=== PATIENT | female | born 1950 ===

== ENCOUNTER 2020-09-26 10:44 | Outpatient (REF) | payer MEDICARE, SELFPAY ==
[2020-09-26 14:37] LABS: Cholesterol 231 mg/dL; HDL Cholesterol 78 mg/dL; LDL Cholesterol Calculated 140 mg/dl; Triglycerides 67 mg/dL
== END 2020-09-26 10:45 | disposition home or self-care (01) ==
LOC: HO.HMGCLDS 10:44
PROVIDERS: PCP Nurse Practitioner Family; Visit Provider Nurse Practitioner Family
DX: E78.5 Hyperlipidemia, unspecified (principal)
CPT/HCPCS: 80061

== ENCOUNTER 2021-07-28 10:23 | Outpatient (REF) | payer MEDICARE, SELFPAY ==
[2021-07-28 11:22] LABS: Appearance Urine CLEAR; Color Urine YELLOW; Glucose Urine UA NEG (NEG); Leukocyte Esterase Urine TRACE (NEG); Nitrite Urine POS (NEG); Specific Gravity - Urine 1.025 (1.005-1.025); UACC Culture Trigger YES; Urine Blood 1+ (NEG); Urine Ketones NEG (NEG); Urine Protein NEG (NEG-TRACE)
[2021-07-28 11:34] LABS: Bacteria Urine 3+ /LPF; Mucus Urine 2+ /LPF; Squamous Epithelial Cell Urine 1+ /LPF
[2021-07-28 11:48] LABS: Alanine Aminotransferase 24 U/L (0-31); Albumin Level 4.5 g/dL (3.5-5.0); Alkaline Phosphatase 70 U/L (39-117); Anion Gap 13 (12-20); Aspartate Amino Transferase 26 U/L (5-31); Bilirubin Total 0.9 mg/dL (0.0-1.0); Blood Urea Nitrogen 19 mg/dL (9-16); Calcium 9.5 mg/dL (8.4-10.2); Carbon Dioxide 27 mmol/L (22-29); Chloride 105 mmol/L (96-108); Cholesterol 281 mg/dL; Estimated Glomerular Filt Rate > 60; Glucose Fasting 104 mg/dL (60-99); HDL Cholesterol 74 mg/dL; LDL Cholesterol Calculated 188 mg/dl; Potassium 4.5 mmol/L (3.3-5.1); Sodium 140 mmol/L (135-145); Total Protein 7.2 g/dL (6.5-8.0); Triglycerides 96 mg/dL
[2021-07-28 12:12] LABS: TSH reflex Free T4 0.76 uIU/mL (0.32-4.0)
== END 2021-07-28 10:24 | disposition home or self-care (01) ==
LOC: HO.HMGCLDS 10:23
PROVIDERS: PCP Nurse Practitioner Family; Visit Provider Nurse Practitioner Family
DX: E78.5 Hyperlipidemia, unspecified (principal); Z78.0 Asymptomatic menopausal state
CPT/HCPCS: 36415; 80053; 80061; 81001; 84443; 87086; 87088; 87186

== ENCOUNTER 2021-08-22 10:44 | Outpatient (REF) | payer MEDICARE, SELFPAY ==
--- NOTE | ~2021-08-22 | MM_ITS ---
EXAMINATION: BONE DENSITOMETRY CLINICAL INDICATION: Asymptomatic menopausal state. COMPARISON: Previous BD dated 11/11/2018 and baseline BD dated 03/04/2018. TECHNIQUE: Using a Chalkable DXA System (software version: 13.1) manufactured by [employer] dual-energy x-ray absorptiometry was performed of the lumbar spine and left hip. The images are of good technical quality. Summary results are attached. FINDINGS: AP SPINE L1-L3 (excluding L4): The data of L1-L4 has been changed to exclude the L4 vertebral body, because degenerative sclerosis at this level may cause overestimation of lumbar spine density. Current: BMD 0.642 g/cm2, Z-score -2.3, T-score -4.4, osteoporosis, 11.3% decrease from previous, 4.7% decrease from baseline (<5% change is not significant). Prior: BMD 0.724 g/cm2. Baseline: BMD 0.674 g/cm2. LEFT FEMUR, NECK: Current: BMD 0.594 g/cm2, Z-score -1.2, T-score -3.2, osteoporosis. Prior: BMD 0.655 g/cm2. Baseline: BMD 0.604 g/cm2. LEFT FEMUR, TOTAL: Current: BMD 0.554 g/cm2, Z-score -1.8, T-score -3.6, osteoporosis, 13.3% decrease from previous, 14.4% decrease from baseline (<5% change is not significant). Prior: BMD 0.639 g/cm2. Baseline: BMD 0.647 g/cm2. IDENTIFIED RISK FACTORS: Osteoporosis, glucocorticoids (chronic), menopause. HISTORY OF FRACTURE: None listed. MEDICATIONS: Calcium supplements or multivitamin, vitamin D. MM/XR DEXA axial skeleton IMPRESSION: 1. DIAGNOSIS: Osteoporosis based on the lowest T-score value of -4.4 in the lumbar spine applying World Health Organization criteria. 2. 10-YEAR FRACTURE RISK PREDICTION, FRAX: Major osteoporotic fracture (clinical spine, forearm, hip or shoulder) 28.7%. Hip fracture 13.1%. 3. Treatment Recommendations: NOF guidelines recommend consideration for treatment in postmenopausal women and men age 50 and older presenting with the following: -A hip or vertebral (clinical or morphometric) fracture. -T-score less than or equal to -2.5 at the femoral neck or spine after appropriate evaluation to exclude secondary causes. -Low bone mass at the hip or spine and a 10-year fracture probability by FRAX of greater than or equal to 3% for hip fracture or greater than or equal to 20% for major osteoporotic fracture based on the [place] adapted WHO algorithm. 4. Other Recommendations: All treatment decisions require clinical judgment and consideration of individual patient factors, including patient preferences, comorbidities, previous drug use, risk factors not captured in the FRAX model (e.g. frailty, falls, vitamin D deficiency, increased bone turnover, interval significant decline in bone density) and possible under or overestimation of fracture risk by FRAX. Additional medical evaluation for secondary cause of low bone mineral density may be appropriate. FUTURE SCAN RECOMMENDATION: People with diagnosed cases of osteoporosis or at high risk for fracture should have regular bone mineral density tests. For patients eligible for Medicare, routine testing is allowed once every 2 years. The testing frequency can be increased to one year for patients who have rapidly progressing disease, those who are receiving or discontinuing medical therapy to restore bone mass, or have additional risk factors.
--- NOTE | ~2021-08-22 | MM_ITS ---
EXAMINATION: MM SCREENING DIGITAL BREAST TOMOSYNTHESIS, BILATERAL CLINICAL INFORMATION: Screening. Asymptomatic. The lifetime risk of breast cancer based on the Tyrer-Cuzick Model is 3%. COMPARISON: Mammography: 07/02/2020, 06/26/2020, 03/03/2019, outside mammography 01/24/2015 ([place], [place]). TECHNIQUE: Digital breast tomosynthesis is performed in both the craniocaudal and mediolateral oblique views along with computer-aided detection (CAD). Synthesized 2D images are generated from the tomosynthesis. FINDINGS: There are scattered areas of fibroglandular density (ACR BI-RADS breast composition Category b). There are no significant masses, abnormal calcifications, or other abnormalities. There is no developing density. No significant changes from prior studies. MM/MM tomosynthesis screening BI IMPRESSION: No mammographic evidence of malignancy. ASSESSMENT: BI-RADS 1: Negative RECOMMENDATION: Routine annual mammography screening. This patient's information was entered into a reminder system with a target due date for their next mammogram.
== END 2021-08-22 10:45 | disposition home or self-care (01) ==
LOC: HO.MAMMO 10:44
PROVIDERS: Visit Provider Nurse Practitioner Family
DX: Z12.31 Encounter for screening mammogram for malignant neoplasm of breast (principal); Z13.820 Encounter for screening for osteoporosis; M81.0 Age-related osteoporosis without current pathological fracture; Z78.0 Asymptomatic menopausal state; Z79.899 Other long term (current) drug therapy
CPT/HCPCS: 77063; 77067; 77080

== ENCOUNTER 2021-12-29 08:01 | Outpatient (REF) | payer MEDICARE, SELFPAY ==
[2021-12-29 11:27] LABS: MANUAL DIFF FLAG NO
[2021-12-29 11:35] LABS: Basophils Absolute Auto 0.1 X10*3/uL (0.0-0.2); Basophils Percent Auto 0.9 % (0-2); Eosinophils Absolute Auto 0.4 X10*3/uL (0.0-0.4); Eosinophils Percent Auto 4.7 % (0-4); Hematocrit 43.6 % (37.0-47.0); Hemoglobin 14.1 g/dl (12.0-16.0); Imm Gran Abs Auto 0.02 X10*3/uL (0.00-0.03); Imm Gran Pct Auto 0.2 % (0.0-0.4); Lymphocytes Absolute Auto 2.4 X10*3/uL (1.2-4.9); Lymphocytes Percent Auto 29.2 % (20-40); Mean Corpuscular HGB Conc 32.3 g/dl (31.0-35.0); Mean Corpuscular Hemoglobin 30.8 pg (27.0-33.0); Mean Corpuscular Volume 95.2 fL (80.0-98.0); Mean Platelet Volume 9.8 fL (9.4-12.3); Monocytes Absolute Auto 0.7 X10*3/uL (0.1-1.2); Monocytes Percent Auto 8.2 % (2-11); Neutrophils Absolute Auto 4.7 x10*3/uL (2.0-8.3); Neutrophils Percent Auto 56.8 % (45-73); Platelet Count 298 X10*3/uL (160-400); Red Blood Count 4.58 X10*6/uL (4.20-5.50); Red Cell Distribution Width 12.3 % (11.0-16.0); White Blood Count 8.2 X10*3/uL (4.8-10.8)
[2021-12-29 11:55] LABS: Alanine Aminotransferase 19 U/L (0-31); Alkaline Phosphatase 63 U/L (39-117); Anion Gap 10 (12-20); Aspartate Amino Transferase 21 U/L (5-31); Bilirubin Total 0.5 mg/dL (0.0-1.0); Blood Urea Nitrogen 21 mg/dL (9-16); C Reactive Protein 1.25 mg/dL (< or = 0.50); Calcium 9.6 mg/dL (8.4-10.2); Carbon Dioxide 29 mmol/L (22-29); Chloride 107 mmol/L (96-108); Cholesterol 211 mg/dL; Estimated Glomerular Filt Rate > 60; Glucose Fasting 105 mg/dL (60-99); HDL Cholesterol 66 mg/dL; LDL Cholesterol Calculated 130 mg/dl; Potassium 4.3 mmol/L (3.3-5.1); Sodium 142 mmol/L (135-145); Total Protein 6.5 g/dL (6.5-8.0); Triglycerides 79 mg/dL
[2021-12-29 12:02] LABS: HBS Num1 0.08 mIU/mL (0-7.99); HBc Num1 0.05 S/CO (0.00-0.79); Hepatitis B Core Antibody Nonreactive (Nonreactive); ~HepC Num1 0.08 S/CO (0.00-0.79); ~Hepatitis B Surface Antibody NONREACTIVE (Nonreactive); ~Hepatitis C Antibody Nonreactive (Nonreactive)
[2021-12-29 12:05] LABS: HBsAGNum1 0.26 S/CO (0.00-0.99); Hepatitis B Surface Antigen Negative (Negative)
[2021-12-29 12:16] LABS: Erythrocyte Sedimentation Rate 11 MM/HR (0-20); TSH reflex Free T4 1.02 uIU/mL (0.32-4.0)
[2021-12-29 12:20] LABS: Appearance Urine CLOUDY; Color Urine YELLOW; Glucose Urine UA NEG (NEG); Leukocyte Esterase Urine TRACE (NEG); Nitrite Urine NEG (NEG); Specific Gravity - Urine 1.025 (1.005-1.025); UACC Culture Trigger YES; Urine Blood TRACE (NEG); Urine Ketones NEG (NEG); Urine Protein NEG (NEG-TRACE)
[2021-12-29 12:51] LABS: Amorphous Sediment Urine 3+ /LPF; Calcium Oxalate Crystals Urine 1+ /LPF; RBC Urine 0 /HPF (0); Squamous Epithelial Cell Urine TRACE /LPF; WBC Urine 0-2 /HPF (0-4)
[2021-12-29 13:03] LABS: HIV AB/AG Nonreactive (Nonreactive); HIV Num 1 0.06 S/CO (0.00-0.99)
[2021-12-31 08:38] LABS: Hepatitis A Antibody IgM 0.19 Index (0-0.79); ~Hepatitis A Antibody IgM Nonreactive (Nonreactive)
== END 2021-12-29 08:02 | disposition home or self-care (01) ==
LOC: HO.HMGCLDS 08:01
PROVIDERS: PCP Nurse Practitioner Family; Visit Provider Nurse Practitioner Family
DX: R63.4 Abnormal weight loss (principal); E78.5 Hyperlipidemia, unspecified
CPT/HCPCS: 36415; 80053; 80061; 81001; 81003; 84443; 85025; 85652; 86140; 86704; 86706; 86709; 86803; 87086; 87340; 87389

== ENCOUNTER 2022-01-19 09:21 | Outpatient (REF) | payer MEDICARE, SELFPAY ==
[2022-01-19 11:32] LABS: Urine Cytology See Pathology rpt
[2022-01-19 11:39] LABS: Appearance Urine CLEAR; Color Urine YELLOW; Glucose Urine UA NEG (NEG); Leukocyte Esterase Urine NEG (NEG); Nitrite Urine NEG (NEG); Urine Blood NEG (NEG); Urine Ketones NEG (NEG); Urine Protein NEG (NEG-TRACE)
[2022-01-19 11:55] LABS: RBC Urine 0-2 /HPF (0); Squamous Epithelial Cell Urine TRACE /LPF; WBC Urine 0 /HPF (0-4)
[2022-01-25 16:12] LABS: Estrogen 108.7 pg/mL
== END 2022-01-19 09:22 | disposition home or self-care (01) ==
LOC: HO.HMGCLDS 09:21
PROVIDERS: PCP Nurse Practitioner Family; Visit Provider Nurse Practitioner Family
DX: R31.29 Other microscopic hematuria (principal); Z78.0 Asymptomatic menopausal state
CPT/HCPCS: 36415; 81001; 82672; 87086; 88112

== ENCOUNTER 2022-03-17 13:15 | Outpatient (REF) | payer MEDICARE, SELFPAY ==
[2022-03-17 16:57] LABS: Urine Cytology See Pathology rpt
== END 2022-03-17 13:16 | disposition home or self-care (01) ==
LOC: HO.LAB 13:15
PROVIDERS: PCP Nurse Practitioner Family
DX: R31.29 Other microscopic hematuria (principal)
CPT/HCPCS: 88112; 99202

== ENCOUNTER → 2022-04-02 14:33 | Outpatient (BNVA) | payer MEDICARE, SELFPAY | PROVIDERS: PCP Nurse Practitioner Family; Visit Provider Internal Medicine Endocrinology, Diabetes & Metabolism | DX: M81.0 Age-related osteoporosis without current pathological fracture (principal); Z79.899 Other long term (current) drug therapy | CPT/HCPCS: 99212 ==

== ENCOUNTER → 2022-05-04 13:18 | Outpatient (BNVA) | payer MEDICARE, SELFPAY | PROVIDERS: PCP Nurse Practitioner Family | DX: R31.29 Other microscopic hematuria (principal) | CPT/HCPCS: 99212 ==

== ENCOUNTER 2022-06-25 14:17 | Outpatient (REF) | payer MEDICARE, SELFPAY ==
--- NOTE | ~2022-06-25 | US_ITS ---
EXAMINATION: US RETROPERITONEAL LIMITED (RENAL ONLY) CLINICAL INFORMATION: Other microscopic hematuria. COMPARISON: None TECHNIQUE: Real-time imaging of the kidneys. FINDINGS: RIGHT KIDNEY: 10.7 x 5.1 x 4.9 cm (SAG x AP x TRV). The kidney is normal in size, contour, and echogenicity. Renal cortical thickness is normal. No renal calculi or hydronephrosis. Within the upper pole there is a 1.9 x 1.7 x 0.7 cm cyst containing calcification. Within the midpole there is a 1.9 x 2.1 x 1.9 cm simple appearing cyst. Within the lower pole there is a 0.7 x 0.7 x 0.7 cm simple appearing cyst. LEFT KIDNEY: 9.9 x 3.7 x 4.9 cm (SAG x AP x TRV). The kidney is normal in size, contour, and echogenicity. Renal cortical thickness is normal. No renal calculi or hydronephrosis. Within the midpole there is a 1.5 x 0.9 x 1.1 cm cyst containing punctate calcifications without internal vascularity or septation. US/US renal BI IMPRESSION: Bilateral renal cysts, some of which have some rounded calcifications about the wall with the appearance of Bosniak 2 cysts.
== END 2022-06-25 14:18 | disposition home or self-care (01) ==
LOC: HO.US 14:17
DX: R31.29 Other microscopic hematuria (principal)
CPT/HCPCS: 76775

== ENCOUNTER 2022-09-04 13:36 | Outpatient (REF) | payer MEDICARE, SELFPAY ==
--- NOTE | ~2022-09-04 | MM_ITS ---
EXAMINATION: MM SCREENING DIGITAL BREAST TOMOSYNTHESIS, BILATERAL CLINICAL INFORMATION: Screening. Asymptomatic. COMPARISON: Mammography: 08/22/2021, 07/02/2020, 06/26/2020, 03/03/2019 TECHNIQUE: Digital breast tomosynthesis is performed in both the craniocaudal and mediolateral oblique views along with computer-aided detection (CAD). Synthesized 2D images are generated from the tomosynthesis. FINDINGS: There are scattered areas of fibroglandular density (ACR BI-RADS breast composition Category b). There are no significant masses, abnormal calcifications, or other abnormalities. Parenchymal pattern is similar to prior studies. There is no developing density or architectural abnormality. The axilla and skin contours are unremarkable. No significant changes. MM/MM tomosynthesis screening BI IMPRESSION: No mammographic evidence of malignancy. ASSESSMENT: BI-RADS 1: Negative RECOMMENDATION: Routine annual mammography screening. This patient's information was entered into a reminder system with a target due date for their next mammogram.
== END 2022-09-04 13:37 | disposition home or self-care (01) ==
LOC: HO.MAMMO 13:36
PROVIDERS: PCP Nurse Practitioner Family; Visit Provider Nurse Practitioner Family
DX: Z12.31 Encounter for screening mammogram for malignant neoplasm of breast (principal)
CPT/HCPCS: 77063; 77067

== ENCOUNTER → 2022-11-26 14:51 | Outpatient (BNVA) | payer MEDICARE, SELFPAY | PROVIDERS: PCP Nurse Practitioner Family; Visit Provider Internal Medicine Endocrinology, Diabetes & Metabolism | DX: M81.0 Age-related osteoporosis without current pathological fracture (principal); Z78.0 Asymptomatic menopausal state | CPT/HCPCS: 99212 ==

== ENCOUNTER → 2023-01-08 10:50 | Outpatient (BNVA) | payer MEDICARE, SELFPAY | PROVIDERS: PCP Nurse Practitioner Family; Visit Provider Internal Medicine Endocrinology, Diabetes & Metabolism | DX: M81.0 Age-related osteoporosis without current pathological fracture (principal); Z79.899 Other long term (current) drug therapy | CPT/HCPCS: 96372; J3111 ==

== ENCOUNTER 2023-03-20 09:14 | Outpatient (REF) | payer MEDICARE, SELFPAY ==
[2023-03-20 10:37] LABS: MANUAL DIFF FLAG NO
[2023-03-20 10:40] LABS: Basophils Absolute Auto 0.1 X10*3/uL (0.0-0.2); Basophils Percent Auto 1.1 % (0-2); Eosinophils Absolute Auto 0.8 X10*3/uL (0.0-0.4); Hematocrit 41.6 % (37.0-47.0); Hemoglobin 13.5 g/dl (12.0-16.0); Imm Gran Abs Auto 0.02 X10*3/uL (0.00-0.03); Imm Gran Pct Auto 0.3 % (0.0-0.4); Lymphocytes Absolute Auto 2.2 X10*3/uL (1.2-4.9); Lymphocytes Percent Auto 33.9 % (20-40); Mean Corpuscular HGB Conc 32.5 g/dl (31.0-35.0); Mean Corpuscular Hemoglobin 31.1 pg (27.0-33.0); Mean Corpuscular Volume 95.9 fL (80.0-98.0); Mean Platelet Volume 9.6 fL (9.4-12.3); Monocytes Absolute Auto 0.4 X10*3/uL (0.1-1.2); Monocytes Percent Auto 6.7 % (2-11); Platelet Count 326 X10*3/uL (160-400); Red Blood Count 4.34 X10*6/uL (4.20-5.50); Red Cell Distribution Width 13.5 % (11.0-16.0); White Blood Count 6.5 X10*3/uL (4.8-10.8)
[2023-03-20 11:03] LABS: Urine Cytology See Pathology rpt
[2023-03-20 11:14] LABS: Appearance Urine Clear; Color Urine Yellow; Glucose Urine UA Negative (Negative); Leukocyte Esterase Urine Trace (Negative); Nitrite Urine Negative (Negative); PH 6.5 (5.0-9.0); Specific Gravity - Urine 1.025 (1.005-1.025); UMIC TRIGGER UACC YES; Urine Blood Negative (Negative); Urine Ketones Negative (Negative); Urine Protein Negative (Neg-Trace)
[2023-03-20 11:24] LABS: Alanine Aminotransferase 21 U/L (0-31); Albumin Level 3.9 g/dL (3.5-5.0); Alkaline Phosphatase 56 U/L (39-117); Anion Gap 11 (12-20); Aspartate Amino Transferase 22 U/L (5-31); Bilirubin Total 0.5 mg/dL (0.0-1.0); Blood Urea Nitrogen 18 mg/dL (9-16); Calcium 9.4 mg/dL (8.4-10.2); Carbon Dioxide 28 mmol/L (22-29); Chloride 106 mmol/L (96-108); Cholesterol 231 mg/dL; Estimated Glomerular Filt Rate > 60; Glucose Fasting 93 mg/dL (60-99); HDL Cholesterol 68 mg/dL; LDL Cholesterol Calculated 142 mg/dl; Potassium 4.1 mmol/L (3.3-5.1); Sodium 141 mmol/L (135-145); Total Protein 6.3 g/dL (6.5-8.0); Triglycerides 109 mg/dL
[2023-03-20 11:29] LABS: Bacteria Urine None Seen (None Seen); Granular Casts Urine Present; Hyaline Casts Urine 0-2 /LPF (0-2); RBC Urine 0-2 /HPF (0-2); Squamous Epithelial Cell Urine 0-2 /HPF (0-2); WBC Urine 0-5 /HPF (0-5)
[2023-03-20 11:42] LABS: TSH reflex Free T4 0.98 uIU/mL (0.32-4.0); Vitamin D 25-OH Total 43.8 ng/mL (>30)
== END 2023-03-20 09:15 | disposition home or self-care (01) ==
LOC: HO.HMGCLDS 09:14
PROVIDERS: PCP Nurse Practitioner Family; Visit Provider Nurse Practitioner Family
DX: E78.5 Hyperlipidemia, unspecified (principal); R31.29 Other microscopic hematuria; M81.0 Age-related osteoporosis without current pathological fracture
CPT/HCPCS: 36415; 80053; 80061; 81001; 82306; 84443; 85025; 88112

== ENCOUNTER 2023-03-25 14:25 | Outpatient (REF) | payer MEDICARE, SELFPAY ==
--- NOTE | ~2023-03-25 | XR_ITS ---
EXAMINATION: XR CHEST CLINICAL INFORMATION: Cough COMPARISON: None available. TECHNIQUE: 2 views of the chest were obtained. FINDINGS: The lungs are hyperinflated with linear stranding in both lung bases likely chronic scarring or atelectasis. No acute pneumonic consolidation. There is no pleural effusion. No gross bony abnormality seen. XR/XR chest 2V IMPRESSION: Hyperinflated lungs with bibasilar atelectasis or scarring.
[2023-03-29 22:03] LABS: Immunoglobulin E 15 kU/L (<OR=114)
== END 2023-03-25 14:26 | disposition home or self-care (01) ==
LOC: HO.LAB 14:25
PROVIDERS: PCP Nurse Practitioner Family; Visit Provider Internal Medicine
DX: J45.909 Unspecified asthma, uncomplicated (principal); R05.9 Cough, unspecified; D72.10 Eosinophilia, unspecified
CPT/HCPCS: 36415; 71046; 82785; 99202

== ENCOUNTER 2023-04-08 10:56 | Outpatient (REF) | payer MEDICARE, SELFPAY ==
--- NOTE | 2023-04-08 12:46 | PFT_ITS ---
Forced vital capacity 58%. FEV1 44%. FEV1/FVC ratio is 57. [id number] is 24% and MVV 43%. Post bronchodilator therapy, there is very minimal improvement in FVC and [id number]. Total lung capacity 74%. Residual volume 91%. Diffusion capacity 54%. CONCLUSION: 1. Severe obstructive airway disorder. 2. Very minimal improvement after bronchodilator therapy is noted. 3. The patient may also have mild restrictive pulmonary disorder. 4. Clinical correlation is recommended. MD JASON Reardon/MODL / [id number]
== END 2023-04-08 10:57 | disposition home or self-care (01) ==
LOC: HO.RESP 10:56
PROVIDERS: PCP Nurse Practitioner Family; Visit Provider Internal Medicine
DX: R05.9 Cough, unspecified (principal); J45.909 Unspecified asthma, uncomplicated
CPT/HCPCS: 94060; 94727; 94729

== ENCOUNTER 2023-05-24 13:06 | Outpatient (AMB) | payer MEDICARE, SELFPAY ==
[2023-05-24 13:16] VITALS: BP 102/64; PULSE 92; O2SAT 93; BMI 17.6
--- NOTE | 2023-05-24 13:16 | MHC.OFFVIS ---
Intake Vital Signs 05/24/23 13:16 Height 5 ft 4.5 in Weight 104 lb BMI 17.6 BP 102/64 Blood Pressure Location Lt brachial Position Standing Pulse 92 Pulse Source Pulse Oximeter Pulse Oximetry (%) 93 Oxygen Delivery Method Room Air Intake Visit Reasons: Asthma Intake Note: pt is here for pft follow up and states she states her breathing is good, but it is not fully under control, and affecting her life, she cannot exercise which is affecting her daily living activities, still coughing. PT NEEDS A REFILL ON ALBUTEROL AND ALSO WOULD YOU CONSIDER A TAPER DOSE OF PREDNISONE TO HAVE AT HOME FOR FLARE UP. Casserole Preparer Required: No Allergies amoxicillin [Augmentin] Allergy (Unknown, Verified 05/24/23 13:54) Anaphylaxis, diarrhea clavulanic acid [Augmentin] Allergy (Unknown, Verified 05/24/23 13:54) Anaphylaxis Self Adherent Wrap Adverse Reaction (Unknown, Uncoded 05/24/23 13:54) Hives to area Medication List - Last Reconciled 05/24/23 by Virgil Vital MD albuterol sulfate 90 mcg/actuation (ProAir HFA) 2 puffs inhalation Q6H PRN 30 days ascorbate calcium (vitamin C) 500 mg PO DAILY azelaic acid 15% topical BID cholecalciferol (vitamin D3) 50 mcg PO DAILY fluticasone propion-salmeterol 500-50 mcg/dose (Advair Diskus) 1 inh inhalation BID 90 days ipratropium-albuterol 0.5 mg-3 mg(2.5 mg base)/3 mL 3 mL inhalation Q12H PRN 30 days levocetirizine 5 mg PO QPM PRN bnjivkuophoi-Jt-figi-minerals tabs PO pravastatin 20 mg PO BEDTIME 90 days pyridoxine (vitamin B6) 100 mg PO DAILY teriparatide (Forteo) 20 mcg (0.08 mL) subcut DAILY trazodone 50 mg PO BEDTIME PRN 30 days vitamin K2 100 mcg PO DAILY Do you need a note to return to daycare/school/sports/work: No HPI Asthma HPI Details This 72 years old very pleasant female, past history of smoking for 20 years but quit more than 20 years ago, Who has moved from [facility] to [place] ,. Comes for follow-up She claims that she is definitely better but her breathing is not fully controlled yet. She gets short of breath easily on walking on the level. Ground or climbing stairs She does have feeling of congestion and some cough especially in the morning hours. She is also concerned about the scott of meds ( high co-payment for Advair ) She uses lot of [place] herbal products to help bring up more mucus and also to improve her strength. [facility] Medical History (Updated 05/24/23 @ 14:06 by Virgil Vital MD) COPD (chronic obstructive pulmonary disease) Cough Eosinophilia Microhematuria Surgical History History of surgery Family History Mother No known health problems Father No known health problems Social History Household Members: None Housing: House Patient Tobacco Use Status: Former Tobacco user Years Smoked: 20 years e-Cigarette/Vaping Use: Never Used Current occupational status: retired Cognitive needs: No Hearing needs: No Vision needs: No Review of Systems Const All systems reviewed & are unremarkable except as noted in HPI and below Eyes Reports no additional complaints ENT Reports nasal congestion (Mild intermittent) Card Denies irregular heart rhythm and Denies leg edema Resp Reports as per HPI GI Reports no additional complaints Reports no additional complaints Musc Reports no additional complaints Skin/Breast Reports system reviewed and no additional complaints, except as documented Neuro Reports no additional complaints Psych Reports no additional complaints Endo Reports no additional complaints Ayaan/Lymph Reports no additional complaints Physical Exam Vital Signs: Last Vital Signs Pulse 92 05/24/23 13:16 BP 102/64 05/24/23 13:16 Pulse Ox 93 05/24/23 13:16 Oxygen Delivery Method Room Air 05/24/23 13:16 BMI result Body Mass Index 17.6 Const General: healthy appearing, comfortable, no acute distress, alert and awake Orientation/consciousness: patient oriented x3 HEENT Head: Yes normal to inspection General nose exam: No nasal polyps present, No nasal discharge present and Other nasal findings present (Mild nasal congestion) Face and sinus: Yes sinuses nontender Mouth: oropharynx normal Throat: Yes posterior oropharynx normal Eyes General: appearance normal, both eyes and all related structures Neck Neck: Yes normal visual inspection, Yes no lymphadenopathy, Yes trachea midline and Yes no JVD Thyroid: Thyroid normal Chest Chest palpation & inspection: normal inspection of the chest, normal palpation of entire chest wall and no tenderness Resp Other: Percussion note hyper resonant . Breath sounds are slightly distant with prolonged expiratory phase No wheezes or crepitations are heard. But she does get cough on taking a deep breath. Cardio Palpation: normal PMI Rate: regular rate Rhythm: regular rhythm Heart sounds: Gallop heart sound present and Murmur heart sound present Peripheral pulses: Peripheral pulses 2+ throughout GI Palpation (GI): Soft to palpation, nontender, No hepatosplenomegaly present and no masses Auscultation: normal bowel sounds Back/Spine/Pelvis Thoracic/Lumbar Spine: thoracic and lumbar spine normal to inspection Skin General skin exam: no rashes or lesions noted Neuro General: patient oriented x3 and no focal motor deficits Cranial nerves: Yes CN's II-XII intact bilaterally Extrem General: Yes normal to inspection, Yes no clubbing, cyanosis or edema and Yes no calf tenderness Psych Speech and movement: Normal speech and movement present Results Reviewed Results Reviewed: IgE. And Eiosinophil count , are normal. Chest x-ray shows hyperinflated lung kim with minimal scarring in the basilar areas. Pulmonary function test: Severe obstructive airway disorder. No significant response to bronchodilators. Mild restrictive disorder. Assessment & Plan Assessment & Plan (1) COPD (chronic obstructive pulmonary disease): Comment: Patient has past history of smoking. Chest x-ray shows hyperinflated lung/pulmonary emphysema. PFT, C/W obstructive airway disorder, severe. . Explained the results to the patient TX : Continue using Advair 500-51 inhalation b.i.d.. Ipratropium-albuterol inhalation solution to be used in the nebulizer t.i.d.. Albuterol HFA 2 puffs Q 4-6 hours p.r.n.. No need of using oral prednisone at this time. Okay to continue the herbal meds she has , as long as she is not getting any significant side effects. Code(s): J44.9 - Chronic obstructive pulmonary disease, unspecified (2) Asthma: Comment: Chronic allergic bronchial asthma. Mostly presenting in the form of cough. Relatively controlled at this time. TX : Has under COPD. Code(s): J45.909 - Unspecified asthma, uncomplicated Coding Level of Care Code Est Pt Level 3 (65880) Diagnoses COPD (chronic obstructive pulmonary disease) J44.9 Asthma J45.909
== END 2023-05-24 13:42 | disposition home or self-care (01) ==
PROVIDERS: PCP Nurse Practitioner Family; Visit Provider Internal Medicine
DX: J45.909 Unspecified asthma, uncomplicated (principal)
CPT/HCPCS: 99213

== ENCOUNTER → 2023-05-24 13:06 | Outpatient (BNVA) | payer MEDICARE, SELFPAY | PROVIDERS: PCP Nurse Practitioner Family; Visit Provider Internal Medicine | DX: J45.909 Unspecified asthma, uncomplicated (principal); J44.9 Chronic obstructive pulmonary disease, unspecified | CPT/HCPCS: 99212 ==

== ENCOUNTER 2023-05-27 14:09 | Outpatient (AMB) | payer MEDICARE, SELFPAY ==
--- NOTE | 2023-05-27 14:10 | MHC.OFFVIS ---
Intake Vital Signs 05/27/23 14:12 Height 5 ft 4.5 in Weight 105 lb 13.15 oz BMI 17.9 BP 132/68 Blood Pressure Location Lt brachial Position Sitting Pulse 98 Intake Visit Reasons: f/u osteoporosis Intake Note: Patient present for Osteoporosis follow up visit. Contact Finger Assembler Required: No Allergies amoxicillin [Augmentin] Allergy (Unknown, Verified 05/27/23 14:20) Anaphylaxis, diarrhea clavulanic acid [Augmentin] Allergy (Unknown, Verified 05/27/23 14:20) Anaphylaxis Self Adherent Wrap Adverse Reaction (Unknown, Uncoded 05/24/23 13:54) Hives to area Medication List - Last Reviewed 05/27/23 by Yuliana Kay albuterol sulfate 90 mcg/actuation (ProAir HFA) 2 puffs inhalation Q6H PRN 30 days ascorbate calcium (vitamin C) 500 mg PO DAILY azelaic acid 15% topical BID cholecalciferol (vitamin D3) 50 mcg PO DAILY fluticasone propion-salmeterol 500-50 mcg/dose (Advair Diskus) 1 inh inhalation BID 90 days ipratropium-albuterol 0.5 mg-3 mg(2.5 mg base)/3 mL 3 mL inhalation Q12H PRN 30 days levocetirizine 5 mg PO QPM PRN cvkcgnmueyhm-Oq-moed-minerals tabs PO pravastatin 20 mg PO BEDTIME 90 days pyridoxine (vitamin B6) 100 mg PO DAILY teriparatide (Forteo) 20 mcg (0.08 mL) subcut DAILY trazodone 50 mg PO BEDTIME PRN 30 days vitamin K2 100 mcg PO DAILY HPI HPI Comments History of Present Illness Details This is a 72-year-old white female previously for osteoporosis. Patient was last seen on 08/19/2018. She has no prior history of fractures . never took a bisphosphonate . Secondary workup was performed which was negative. Not On Forteo 20 mcg QD EXAMINATION: BONE DENSITOMETRY CLINICAL INDICATION: Asymptomatic menopausal state. COMPARISON: Previous BD dated 11/11/2018 and baseline BD dated 03/04/2018. TECHNIQUE: Using a [employer]et DXA System (software version: 13.1) manufactured by [id number], dual-energy x-ray absorptiometry was performed of the lumbar spine and left hip. The images are of good technical quality. Summary results are attached. FINDINGS: AP SPINE L1-L3 (excluding L4): The data of L1-L4 has been changed to exclude the L4 vertebral body, because degenerative sclerosis at this level may cause overestimation of lumbar spine density. Current: BMD 0.642 g/cm2, Z-score -2.3, T-score -4.4, osteoporosis, 11.3% decrease from previous, 4.7% decrease from baseline (<5% change is not significant). Prior: BMD 0.724 g/cm2. Baseline: BMD 0.674 g/cm2. LEFT FEMUR, NECK: Current: BMD 0.594 g/cm2, Z-score -1.2, T-score -3.2, osteoporosis. Prior: BMD 0.655 g/cm2. Baseline: BMD 0.604 g/cm2. LEFT FEMUR, TOTAL: Current: BMD 0.554 g/cm2, Z-score -1.8, T-score -3.6, osteoporosis, 13.3% decrease from previous, 14.4% decrease from baseline (<5% change is not significant). Prior: BMD 0.639 g/cm2. Baseline: BMD 0.647 g/cm2. [facility] Medical History (Updated 05/24/23 @ 14:06 by Virgil Vital MD) COPD (chronic obstructive pulmonary disease) Cough Eosinophilia Microhematuria Surgical History History of surgery Family History Mother No known health problems Father No known health problems Social History Household Members: None Housing: House Patient Tobacco Use Status: Former Tobacco user Years Smoked: 20 years e-Cigarette/Vaping Use: Never Used Current occupational status: retired Cognitive needs: No Hearing needs: No Vision needs: No Physical Exam Vital Signs: Last Vital Signs Pulse 98 05/27/23 14:12 BP 132/68 05/27/23 14:12 BMI result Body Mass Index 17.9 Assessment & Plan Assessment & Plan (1) Osteoporosis: Code(s): M81.0 - Age-related osteoporosis without current pathological fracture Plan: This 72-year-old white female with a history of osteoporosis currently on calcium and vitamin-D supplementation. Secondary workup has been negative. Patient has tried oral bisphosphonate with side effects . Currently on Forteo since 03/2023 but only took a few doses then stopped. Feel somewhat uncomfortable about restarting Forteo Plan is to attempt to get Evenity through an infusion center with less co-pay. If this is not possible, patient is willing to go back on Forteo for 2 year course. She should continue with calcium and vitamin-D supplementation Coding Level of Care Code Est Pt Level 3 (81351) Diagnoses Osteoporosis M81.0
[2023-05-27 14:12] VITALS: BP 132/68; PULSE 98; BMI 17.9
== END 2023-05-27 14:48 | disposition home or self-care (01) ==
PROVIDERS: PCP Nurse Practitioner Family; Visit Provider Internal Medicine Endocrinology, Diabetes & Metabolism
DX: M81.0 Age-related osteoporosis without current pathological fracture (principal)
CPT/HCPCS: 99213

== ENCOUNTER → 2023-05-27 14:09 | Outpatient (BNVA) | payer MEDICARE, SELFPAY | PROVIDERS: Visit Provider Internal Medicine Endocrinology, Diabetes & Metabolism | DX: M81.0 Age-related osteoporosis without current pathological fracture (principal) | CPT/HCPCS: 99212 ==

== ENCOUNTER 2023-06-18 08:57 | Outpatient (REF) | payer MEDICARE, SELFPAY ==
--- NOTE | ~2023-06-18 | US_ITS ---
EXAMINATION: US RETROPERITONEAL LIMITED (RENAL ONLY) CLINICAL INFORMATION: Microscopic hematuria. COMPARISON: Previous renal ultrasound June 2022 TECHNIQUE: Grayscale and color imaging of the kidneys FINDINGS: RIGHT KIDNEY: 10.3 x 4.3 x 5.8 cm (SAG x AP x TRV). The kidney is normal in size, contour, and echogenicity. Renal cortical thickness is normal. There are 2 adjacent complex cysts in the upper to mid right kidney. Largest measures 2.1 x 2.8 x 2 cm. This contains questionable solid component with flow. There is a 1.9 x 1.8 x 2 cm cyst with internal echoes questionable for echogenic debris. These are increased in size from 1.9 x 1.7 x 1.7 cm and 1.9 x 2.1 x 1.9 cm June 2022 exam. No calculi. No hydronephrosis. LEFT KIDNEY: 11 x 3.7 x 5 cm (SAG x AP x TRV). The kidney is normal in size, contour, and echogenicity. Renal cortical thickness is normal. No calculi or focal parenchymal lesions. No hydronephrosis. There is a 1.7 x 1.3 x 1.5 cm simple cyst in the lower pole. No imaging follow-up recommended. US/US renal BI IMPRESSION: 2 complex cysts in the upper to mid right kidney. The largest measures 2.1 x 2.8 x 2 cm and contains questionable solid component with flow. Follow-up CT or MRI of the kidneys with and without contrast recommended.
== END 2023-06-18 08:58 | disposition home or self-care (01) ==
LOC: HO.US 08:57
PROVIDERS: PCP Nurse Practitioner Family; Visit Provider Urology
DX: R31.29 Other microscopic hematuria (principal)
CPT/HCPCS: 76775

== ENCOUNTER 2023-07-01 15:05 | Outpatient (AMB) | payer MEDICARE, SELFPAY ==
--- NOTE | 2023-07-01 15:10 | A.OFFVIS_ITS ---
Intake Intake Visit Reasons: 1 year follow up/microhematuria/US (SET) Intake Note: Patient presents today for a follow-up on 1 year follow up/microhematuria/US (SET) US Completed 06/18/2023: MEAGAN Meds- Vitamin B6 Allergies to Antibiotic- Amoxicillin Blood Thinner- None Supervisor Inspection Department Required: No Accompanied by: Self / Same As Patient Allergies amoxicillin [Augmentin] Allergy (Unknown, Verified 07/05/23 12:32) Anaphylaxis, diarrhea clavulanic acid [Augmentin] Allergy (Unknown, Verified 07/05/23 12:32) Anaphylaxis Self Adherent Wrap Adverse Reaction (Unknown, Uncoded 07/05/23 12:32) Hives to area Medication List - Last Reconciled 07/01/23 by France Orourke MD albuterol sulfate 90 mcg/actuation (ProAir HFA) 2 puffs inhalation Q6H PRN 30 days ascorbate calcium (vitamin C) 500 mg PO DAILY azelaic acid 15% topical BID cholecalciferol (vitamin D3) 50 mcg PO DAILY diazepam (Valium) 2 mg orally dispense 2 doses PRN; Take one dose prior to office cysto Take one dose prior to MRI fluticasone propion-salmeterol 500-50 mcg/dose (Advair Diskus) 1 inh inhalation BID 90 days ipratropium-albuterol 0.5 mg-3 mg(2.5 mg base)/3 mL 3 mL inhalation Q12H PRN 30 days levocetirizine 5 mg PO QPM PRN bswbazwnsnik-Ro-dbiw-minerals tabs PO pravastatin 20 mg PO BEDTIME 90 days prednisone 20 mg PO BID 5 days pyridoxine (vitamin B6) 100 mg PO DAILY teriparatide (Forteo) 20 mcg (0.08 mL) subcut DAILY trazodone 50 mg PO BEDTIME PRN 30 days vitamin K2 100 mcg PO DAILY HPI HPI Comments History of Present Illness Details Natalie is a 72-year-old female who presents today to the office for a follow-up. 07/01/2023? Natalie is followed today for microscopic hematuria. She has seen Dr. Hill on 05/04/2022 for microscopic hematuria. Renal US was ordered, and the patient was advised to follow-up after the US during that time. I reviewed the renal US results from 06/18/2023 revealed 2 complex cysts in the upper to mid right kidney. The largest measures 2.1 x 2.8 x 2 cm and contains questionable solid component with flow. Evaluation today?UA? leukocytes: negative; blood: 10 Nik. Plan: Will get an MRI of the abdomen renal mass protocol, for further evaluation of the complex renal cyst. Follow up in office Cystoscopy. [facility] Medical History COPD (chronic obstructive pulmonary disease) Eosinophilia Cough Microhematuria Surgical History History of surgery Family History Mother No known health problems Father No known health problems Social History Household Members: None Housing: House Patient Tobacco Use Status: Former Tobacco user Years Smoked: 20 years e-Cigarette/Vaping Use: Never Used Current occupational status: retired Cognitive needs: No Hearing needs: No Vision needs: No Review of Systems Const All systems reviewed & are unremarkable except as noted in HPI and below Reports no additional complaints Eyes Reports no additional complaints ENT Reports no additional complaints Card Denies dyspnea Resp Denies cough and Denies dyspnea GI Reports no additional complaints Reports no additional complaints Musc Reports no additional complaints Skin/Breast Denies rash and Denies unusual bruising Neuro Reports no additional complaints Psych Reports no additional complaints Endo Reports no additional complaints Ayaan/Lymph Reports no additional complaints Aller/Immun Reports no additional complaints Physical Exam Const General: cooperative, healthy appearing and no acute distress Orientation/consciousness: patient oriented x3 HEENT Head: Yes normal to inspection, Yes normocephalic and Yes atraumatic Eyes Conjunctivae: conjunctivae normal Neck Neck: Yes normal visual inspection and Yes trachea midline Chest Chest palpation & inspection: normal inspection of the chest Resp Effort & Inspection: normal respiratory effort Cardio Rate: regular rate GI Inspection: Yes normal to inspection Skin General skin exam: no rashes or lesions noted Neuro General: patient oriented x3 Extrem General: No edema Psych Appearance: grossly normal Results AMB Urinalysis, Automated UA Leukoctes 0 Raven/uL Last Edit by Prince Yu Trey on 07/01/23 15:42 UA Nitrite Negative Last Edit by Prince Yu [facility] on 07/01/23 15:42 UA Urobilinogen 0.2 mg/dL Last Edit by Prince Yu [facility] on 07/01/23 15:4 2 UA Protein 0 mg/dL Last Edit by Prince Yu [facility] on 07/01/23 15:42 UA pH 6.0 Last Edit by Prince Yu [facility] on 07/01/23 15:42 UA Blood 10 Nik/uL Last Edit by Prince Yu [facility] on 07/01/23 15:42 UA Specific [place] 1.020 Last Edit by Prince Yu [facility] on 07/01/23 15: 42 UA Ketone Negative Last Edit by Prince Yu [facility] on 07/01/23 15:42 UA Bilirubin 0 mg/dL Last Edit by Prince Yu [facility] on 07/01/23 15:42 UA Glucose 0 mg/dL Last Edit by Prince Yu [facility] on 07/01/23 15:42 Results Reviewed Results Reviewed: Laboratory Last Values Urine pH (Auto) 6.0 07/01/23 15:13 Specific Mesa (Auto) 1.020 07/01/23 15:13 Urine Protein (Auto) 0 mg/dL 07/01/23 15:13 Glucose (UA)(Auto) 0 mg/dL 07/01/23 15:13 Urine Ketones (Auto) Negative 07/01/23 15:13 Urine Blood (Auto) 10 Nik/uL 07/01/23 15:13 Urine Nitrite (Auto) Negative 07/01/23 15:13 Urine Bilirubin (Auto) 0 mg/dL 07/01/23 15:13 Urine Urobilinogen (Auto) 0.2 mg/dL 07/01/23 15:13 Leukocyte Esterase (Auto) 0 Raven/uL 07/01/23 15:13 Date of Service: 06/18/23 EXAMINATION:? US RETROPERITONEAL LIMITED (RENAL ONLY) CLINICAL INFORMATION: Microscopic hematuria. COMPARISON:? Previous renal ultrasound June 2022 FINDINGS: RIGHT KIDNEY: 10.3 x 4.3 x 5.8 cm (SAG x AP x TRV). The kidney is normal in size, contour, and echogenicity. Renal cortical thickness is normal. There are 2 adjacent complex cysts in the upper to mid right kidney. Largest measures 2.1 x 2.8 x 2 cm. This contains questionable solid component with flow. There is a 1.9 x 1.8 x 2 cm cyst with internal echoes? questionable for echogenic debris. These are increased in size from 1.9 x 1.7 x 1.7 cm and 1.9 x 2.1 x 1.9 cm June 2022 exam. No calculi. No hydronephrosis. LEFT KIDNEY: 11 x 3.7 x 5 cm (SAG x AP x TRV). The kidney is normal in size, contour, and echogenicity. Renal cortical thickness is normal. No calculi or focal parenchymal lesions. No hydronephrosis. There is a 1.7 x 1.3 x 1.5 cm simple cyst in the lower pole. No imaging follow-up recommended. IMPRESSION:? 2 complex cysts in the upper to mid right kidney. The largest measures 2.1 x 2.8 x 2 cm and contains questionable solid component with flow. Assessment & Plan Assessment & Plan (1) Complex renal cyst: Code(s): N28.1 - Cyst of kidney, acquired (2) Microhematuria: Code(s): R31.29 - Other microscopic hematuria Plan Will get an MRI of the abdomen renal mass protocol, for further evaluation of the complex renal cyst.? Follow up in office Cystoscopy. Orders: Orders MR abdomen wo/w con 07/01/23 N28.1 - Cyst of kidney, acquired AMB Urinalysis Automated 07/01/23 Z13.9 - Encounter for screening, unspecified Medications: New diazepam (Valium) 2 mg orally dispense 2 doses PRN; Take one dose prior to office cysto Take one dose prior to MRI 2 tabs 0RF prior to procedure Coding Level of Care Code Est Pt Level 4 (36285) Diagnoses Complex renal cyst N28.1 Microhematuria R31.29
== END 2023-07-01 16:03 | disposition home or self-care (01) ==
PROVIDERS: PCP Nurse Practitioner Family; Visit Provider Urology
DX: N28.1 Cyst of kidney, acquired (principal); R31.29 Other microscopic hematuria
CPT/HCPCS: 99214

== ENCOUNTER → 2023-07-01 15:05 | Outpatient (BNVA) | payer MEDICARE, SELFPAY | PROVIDERS: Visit Provider Urology | DX: N28.1 Cyst of kidney, acquired (principal); R31.29 Other microscopic hematuria | CPT/HCPCS: 81003; 99212 ==

== ENCOUNTER 2023-07-05 12:26 | Outpatient (AMB) | payer MEDICARE, SELFPAY ==
[2023-07-05 12:28] VITALS: BP 140/62; PULSE 98; BMI 18.3
--- NOTE | 2023-07-05 12:28 | MHC.OFFVIS ---
Intake Vital Signs 07/05/23 12:28 Height 5 ft 4.5 in Weight 108 lb 0.424 oz BMI 18.3 BP 140/62 H Blood Pressure Location Lt brachial Position Sitting Pulse 98 Intake Visit Reasons: Colonoscopy screening Intake Note: Natalie presents in the office as a new patient colonoscopy. CC: She had a pos cologard - she has never had a colonoscopy. Information Services Consultant Required: No Allergies amoxicillin [Augmentin] Allergy (Unknown, Verified 07/05/23 12:32) Anaphylaxis, diarrhea clavulanic acid [Augmentin] Allergy (Unknown, Verified 07/05/23 12:32) Anaphylaxis Self Adherent Wrap Adverse Reaction (Unknown, Uncoded 07/05/23 12:32) Hives to area Medication List - Last Reconciled 07/05/23 by Cony Ross PA-C albuterol sulfate 90 mcg/actuation (ProAir HFA) 2 puffs inhalation Q6H PRN 30 days ascorbate calcium (vitamin C) 500 mg PO DAILY azelaic acid 15% topical BID cholecalciferol (vitamin D3) 50 mcg PO DAILY diazepam (Valium) 2 mg orally dispense 2 doses PRN; Take one dose prior to office cysto Take one dose prior to MRI fluticasone propion-salmeterol 500-50 mcg/dose (Advair Diskus) 1 inh inhalation BID 90 days ipratropium-albuterol 0.5 mg-3 mg(2.5 mg base)/3 mL 3 mL inhalation Q12H PRN 30 days levocetirizine 5 mg PO QPM PRN afosypssfttf-Gx-xqbz-minerals tabs PO pravastatin 20 mg PO BEDTIME 90 days prednisone 20 mg PO BID 5 days pyridoxine (vitamin B6) 100 mg PO DAILY teriparatide (Forteo) 20 mcg (0.08 mL) subcut DAILY trazodone 50 mg PO BEDTIME PRN 30 days vitamin K2 100 mcg PO DAILY HPI HPI Comments History of Present Illness Details A 72 y/o female advanced respiratory disease referred with positive cologuard- never had a colonoscopy- No GI concerns- appetite is not great- she has a chronic cough-wt loss-appetite is poor she has no desire to eat-she associates with her respiratory issues Follows with Dr. Vital- chronic cough- lung disease No nausea, vomiting, hematemesis, hematochezia, fever or chills PFSH Medical History COPD (chronic obstructive pulmonary disease) Eosinophilia Cough Microhematuria Surgical History History of surgery Family History Mother No known health problems Father No known health problems Social History Household Members: None Housing: House Patient Tobacco Use Status: Former Tobacco user Years Smoked: 20 years e-Cigarette/Vaping Use: Never Used Current occupational status: retired Cognitive needs: No Hearing needs: No Vision needs: No Review of Systems Const All systems reviewed & are unremarkable except as noted in HPI and below Denies chills, Denies fever(s), Reports lethargy, Reports poor appetite and Reports weight loss Card Denies chest pain, Reports dyspnea and Reports dyspnea on exertion Resp Reports dyspnea and Reports dyspnea on exertion GI Denies abdominal pain, Denies change in bowel habits, Denies heartburn, Denies nausea and Denies vomiting Physical Exam Vital Signs: Last Vital Signs Pulse 98 07/05/23 12:28 BP 140/62 H 07/05/23 12:28 BMI result Body Mass Index 18.3 Const General: cooperative and comfortable Nutritional Appearance: thin Orientation/consciousness: patient oriented x3 Limitations: no limitations Eyes Sclerae: sclerae normal Resp Auscultation: wheezes expiratory wheezes and diminished lung sounds Cardio Rate: regular rate (APR=92) Rhythm: regular rhythm Heart sounds: S1 normal heart sound present and S2 normal heart sound present GI Palpation (GI): Soft to palpation and nontender Auscultation: normal bowel sounds Skin General skin exam: no rashes or lesions noted Neuro General: patient oriented x3 Extrem General: Yes full ROM Psych Appearance: grossly normal and well kempt Mental Status: mental status grossly normal Speech and movement: Clear speech present Affect: Animated affect present and Anxious affect present Attitude: cooperative Thought process: Normal thought process present Thought content: Normal thought content present Insight: Good insight present (Psych) Judgement: Good judgement present (Psych) Results Reviewed Results Reviewed: 03/25/23 XR/XR chest 2V IMPRESSION: Hyperinflated lungs with bibasilar atelectasis or scarring. Assessment & Plan Assessment & Plan (1) Positive colorectal cancer screening using Cologuard test: Comment: Colonoscopy inhalers-cough, poor appetite- wt loss-declines - discussed EGD- she will further discuss with pcp- Code(s): R19.5 - Other fecal abnormalities Plan: Index colonoscopy (2) Cough: Comment: chronic cough, wt loss, poor appetite- Code(s): R05.9 - Cough, unspecified Plan: ML pulmonary-consider EGD given weight loss, poor appetite Plan Severe pulmonary obstructive disorder- Dr. Vital dx-Colonoscopy- MG prep- anesthesia Orders: Orders Colonoscopy - GI Use Only 07/05/23 R19.5 - Other fecal abnormalities Medications: New bisacodyl (Dulcolax (bisacodyl)) Take 4 tablets by mouth at 12:00pm the day before your procedure. 20 mg (4 x 5 mg) PO ONCE 1 day 4 tabs 0RF colonoscopy prep Z12.11 - Encounter for screening for malignant neoplasm of colon polyethylene glycol 3350 (Miralax) Take as directed by mouth the day before your procedure. 238 grams PO ONCE 1 day PRN 238 grams 0RF laxative effect Patient Instructions: A pleasant 72 y/o severe pulmonary disease, positive cologuard- no overt bleeding, no known hemorrhoid-presents with weight loss, poor appetite- Discussed both EGD and colonoscopy Colonoscopy-discussed procedure-rare risks, need for escort-as well as MiraLax Gatorade prep literature give Will discuss- with pcp-a poor appetite, EGD- Encouraged to call questions or cut Appreciate the opportunity assist in care the pain Coding Level of Care Code New Pt Level 3 (99510) Diagnoses Positive colorectal cancer screening using Cologuard test R19.5 Cough R05.9 Time Spent (min) 35
== END 2023-07-05 16:07 | disposition home or self-care (01) ==
PROVIDERS: PCP Nurse Practitioner Family; Visit Provider Physician Assistant
DX: R19.5 Other fecal abnormalities (principal); R05.9 Cough, unspecified
CPT/HCPCS: 99203

== ENCOUNTER → 2023-07-05 12:26 | Outpatient (BNVA) | payer MEDICARE, SELFPAY | PROVIDERS: PCP Nurse Practitioner Family; Visit Provider Physician Assistant | DX: R19.5 Other fecal abnormalities (principal); R05.3 Chronic cough | CPT/HCPCS: 99202 ==

== ENCOUNTER 2023-07-08 08:48 | Outpatient (AMB) | payer MEDICARE, SELFPAY ==
--- NOTE | 2023-07-08 08:54 | A.OFFPC_ITS ---
Vital Signs 07/08/23 08:56 Height 5 ft 4.5 in Weight 109 lb BMI 18.4 BP 120/80 Blood Pressure Location Lt brachial Position Sitting Pulse 57 Pulse Source Pulse Oximeter Pulse Oximetry (%) 97 Oxygen Delivery Method Room Air Intake Visit Reasons: 3 month follow up Allergies amoxicillin [Augmentin] Allergy (Unknown, Verified 07/08/23 12:48) Anaphylaxis, diarrhea clavulanic acid [Augmentin] Allergy (Unknown, Verified 07/08/23 12:48) Anaphylaxis Self Adherent Wrap Adverse Reaction (Unknown, Uncoded 07/08/23 12:48) Hives to area Medication List - Last Reconciled 07/08/23 by Juancho Fitzgerald, HISTOLOGICAL ILLUSTRATOR- albuterol sulfate 90 mcg/actuation (ProAir HFA) 2 puffs inhalation Q6H PRN 30 days ascorbate calcium (vitamin C) 500 mg PO DAILY azelaic acid 15% topical BID bisacodyl (Dulcolax (bisacodyl)) 20 mg (4 x 5 mg) PO ONCE 1 day buspirone 5 mg PO BID 30 days cholecalciferol (vitamin D3) 50 mcg PO DAILY diazepam (Valium) 2 mg orally dispense 2 doses PRN; Take one dose prior to office cysto Take one dose prior to MRI fluticasone propion-salmeterol 500-50 mcg/dose (Advair Diskus) 1 inh inhalation BID 90 days ipratropium-albuterol 0.5 mg-3 mg(2.5 mg base)/3 mL 3 mL inhalation Q12H PRN 30 days levocetirizine 5 mg PO QPM PRN rhqrxwkqrlkt-Ve-fwgt-minerals tabs PO polyethylene glycol 3350 (Miralax) 238 grams PO ONCE PRN 1 day pravastatin 20 mg PO BEDTIME 90 days prednisone 20 mg PO BID pyridoxine (vitamin B6) 100 mg PO DAILY teriparatide (Forteo) 20 mcg (0.08 mL) subcut DAILY trazodone 50 mg PO BEDTIME PRN 30 days vitamin K2 100 mcg PO DAILY Tobacco use date assessed: 07/08/23 Fall risk assessment: No Falls in past year Last assessed Fall Risk: 07/08/23 Dental Screening Dental Screen Date: 07/08/23 Did you have a dental visit in the last 12 months?: Yes Did you have a dental problem in the last 6 months where you did not have access to dental care?: No Was dental information given to patient?: Patient has dentist HPI 3 month follow up HPI Details Pt c/o increased anxiety. Will start buspirone 5mg bid. Denies any SI and HI. She will contact me next week with how the buspirone is working. [facility] Medical History COPD (chronic obstructive pulmonary disease) Eosinophilia Cough Microhematuria Surgical History History of surgery Family History Mother No known health problems Father No known health problems Social History Household Members: None Housing: House Patient Tobacco Use Status: Former Tobacco user Years Smoked: 20 years e-Cigarette/Vaping Use: Never Used Current occupational status: retired Cognitive needs: No Hearing needs: No Vision needs: No Questionnaire Thrive Questionnaire Date Thrive assessed: 01/26/22 AUDIT C Alcohol Use Questionnaire (AUDIT-C) 1. How often do you have a drink containing alcohol?: Monthly or less 2. How many drinks containing alcohol do you have on a typical day when you are drinking?: 1 or 2 3. How often do you have six or more drinks on one occasion?: Never Total Score: 1 Score Reviewed/Action Taken: No NI-7 AMB Questionnaire NI-7 Date NI - 7 assessed: 01/26/22 Source: Developed by Drs. Farooq Griffin, Ruth Hi, Matheus Mckinley and colleagues, with an educational jhon from [employer]. Review of Systems Const Reports as per HPI Physical exam (Primary Care) Vital Signs: Last Vital Signs Pulse 57 07/08/23 08:56 BP 120/80 07/08/23 08:56 Pulse Ox 97 07/08/23 08:56 Oxygen Delivery Method Room Air 07/08/23 08:56 BMI result Body Mass Index 18.4 Tobacco/Smoking Status: Tobacco use Status Tobacco use date assessed 07/08/23 07/08/23 08:58 Patient Tobacco Use Status Former Tobacco user 07/08/23 08:56 e-Cigarette/Vaping Use Never Used 07/08/23 08:56 Thrive Assessment: Date of Thrive Assessment Date Thrive assessed 01/26/22 07/08/23 08:56 Const General: cooperative Orientation/consciousness: patient oriented x3 Resp Other: moving air bilat with faint scattered wheezes Effort & Inspection: normal respiratory effort Cardio Rate: regular rate Rhythm: regular rhythm Heart sounds: S1 normal heart sound present and S2 normal heart sound present Neuro General: patient oriented x3 Psych Appearance: grossly normal Mental Status: mental status grossly normal Speech and movement: Normal speech and movement present Affect: normal affect Attitude: cooperative Thought process: Normal thought process present Thought content: Normal thought content present Insight: Good insight present (Psych) Judgement: Good judgement present (Psych) Assessment and Plan Assessment & Plan (1) Anxiety: Code(s): F41.9 - Anxiety disorder, unspecified Plan The patient agreed to the use of a medical apparatus model maker for this encounter. Scribed for HARSHA Ken by Nenita Brown medical apparatus model maker, on 07/08/2023 at 09:05 EST. Medications: New buspirone 5 mg PO BID 60 tabs 2RF 30 days Coding Level of Care Code Est Pt Level 3 (91800) Diagnoses Anxiety F41.9
[2023-07-08 08:56] VITALS: BP 120/80; PULSE 57; O2SAT 97; BMI 18.4
== END 2023-07-08 09:27 | disposition home or self-care (01) ==
PROVIDERS: PCP Nurse Practitioner Family; Visit Provider Nurse Practitioner Family
DX: F41.9 Anxiety disorder, unspecified (principal)
CPT/HCPCS: 99213

== ENCOUNTER 2023-07-15 10:11 | Outpatient (AMB) | payer MEDICARE, SELFPAY ==
[2023-07-15 10:16] VITALS: BP 124/68; PULSE 87; O2SAT 96; BMI 17.7
--- NOTE | 2023-07-15 10:16 | A.OFFVIS_ITS ---
Intake Vital Signs 07/15/23 10:16 Height 5 ft 4.5 in Weight 105 lb BMI 17.7 BP 124/68 Blood Pressure Location Lt brachial Position Sitting Pulse 87 Pulse Source Pulse Oximeter Pulse Oximetry (%) 96 Oxygen Delivery Method Room Air Intake Visit Reasons: productive cough Intake Note: pt is here for a visit to help with cough that has not stopped since October. It is green in color. Advair and albuterol with duoneb at times. The cough is exhausting. Heading Saw Operator Required: No Allergies amoxicillin [Augmentin] Allergy (Unknown, Verified 07/15/23 10:18) Anaphylaxis, diarrhea clavulanic acid [Augmentin] Allergy (Unknown, Verified 07/15/23 10:18) Anaphylaxis Self Adherent Wrap Adverse Reaction (Unknown, Uncoded 07/15/23 10:18) Hives to area Medication List - Last Reconciled 07/15/23 by Virgil Vital MD albuterol sulfate 90 mcg/actuation (ProAir HFA) 2 puffs inhalation Q6H PRN 30 days ascorbate calcium (vitamin C) 500 mg PO DAILY azelaic acid 15% topical BID bisacodyl (Dulcolax (bisacodyl)) 20 mg (4 x 5 mg) PO ONCE 1 day buspirone 7.5 mg PO BID cholecalciferol (vitamin D3) 50 mcg PO DAILY diazepam (Valium) 2 mg orally dispense 2 doses PRN; Take one dose prior to office cysto Take one dose prior to MRI fluticasone propion-salmeterol 500-50 mcg/dose (Advair Diskus) 1 inh inhalation BID 90 days ipratropium-albuterol 0.5 mg-3 mg(2.5 mg base)/3 mL 3 mL inhalation Q12H PRN 30 days levocetirizine 5 mg PO QPM PRN yoimtfcdnfrj-Ff-gpgm-minerals tabs PO polyethylene glycol 3350 (Miralax) 238 grams PO ONCE PRN 1 day pravastatin 20 mg PO BEDTIME 90 days prednisone 20 mg PO BID pyridoxine (vitamin B6) 100 mg PO DAILY teriparatide (Forteo) 20 mcg (0.08 mL) subcut DAILY trazodone 50 mg PO BEDTIME PRN 30 days vitamin K2 100 mcg PO DAILY Do you need a note to return to daycare/school/sports/work: No HPI productive cough HPI Details 72 YEARS OLD FEMALE, WITH BRONCHIAL ASTH MA, AND ONGOING LOW-GRADE BRONCHITIS, COMES FOR HER FOLLOW-UP AFTER 2 MONTHS. WHILE SHE HAS NOT HAD ANY ACUTE EXACERBATION, SHE CONTINUES TO HAVE FREQUENT BOUTS OF CONGESTED FEELING AND COUGH. WHEN SHE WAKES UP IN THE MORNING SHE IS CONGESTED FOR A COUPLE HOURS, BEFORE IT CLEARS. SHE DOES COUGH OFF AND ON AND BRINGS UP GREENISH PHLEGM. SHE GETS MUCH BETTER QUICKLY WHEN SHE TAKES PREDNISONE BUT, SHE HAS BEEN INSTRUCTED NOT TO OVERUSE THE PREDNISONE. HOT AND HUMID WEATHER WAS NOT VERY FAVORABLE FOR HER. NOW SHE FEELS SOMEWHAT BETTER WITH THE TEMPERATURES COOLING DOWN. USING ADVAIR HAS KEPT HER ASTHMA UNDER CONTROLLED. SHE IS USING THE DUONEB UPDRAFTS ONCE OR TWICE A DAY. AND ALBUTEROL ONLY NEEDED WHEN SHE GOES OUTDOORS. [facility] Medical History COPD (chronic obstructive pulmonary disease) Eosinophilia Cough Microhematuria Surgical History History of surgery Family History Mother No known health problems Father No known health problems Social History Household Members: None Housing: House Patient Tobacco Use Status: Former Tobacco user Years Smoked: 20 years e-Cigarette/Vaping Use: Never Used Current occupational status: retired Cognitive needs: No Hearing needs: No Vision needs: No Review of Systems Const All systems reviewed & are unremarkable except as noted in HPI and below Eyes Reports no additional complaints ENT Reports nasal congestion (Mild intermittent) Card Denies irregular heart rhythm and Denies leg edema Resp Reports as per HPI GI Reports no additional complaints Reports no additional complaints Musc Reports no additional complaints Skin/Breast Reports system reviewed and no additional complaints, except as documented Neuro Reports no additional complaints Psych Reports no additional complaints Endo Reports no additional complaints Ayaan/Lymph Reports no additional complaints Physical Exam Vital Signs: Last Vital Signs Pulse 87 07/15/23 10:16 BP 124/68 07/15/23 10:16 Pulse Ox 96 07/15/23 10:16 Oxygen Delivery Method Room Air 07/15/23 10:16 BMI result Body Mass Index 17.7 Const General: healthy appearing, comfortable, no acute distress, alert and awake Orientation/consciousness: patient oriented x3 HEENT Head: Yes normal to inspection General nose exam: No nasal polyps present, No nasal discharge present and Other nasal findings present (Mild nasal congestion) Face and sinus: Yes sinuses nontender Mouth: oropharynx normal Throat: Yes posterior oropharynx normal Eyes General: appearance normal, both eyes and all related structures Neck Neck: Yes normal visual inspection, Yes no lymphadenopathy, Yes trachea midline and Yes no JVD Thyroid: Thyroid normal Chest Chest palpation & inspection: normal inspection of the chest, normal palpation of entire chest wall and no tenderness Resp Other: Percussion note hyper resonant . Breath sounds are slightly distant with prolonged expiratory phase No wheezes or crepitations are heard. But she does get cough on taking a deep breath. Cardio Palpation: normal PMI Rate: regular rate Rhythm: regular rhythm Heart sounds: Gallop heart sound present and Murmur heart sound present Peripheral pulses: Peripheral pulses 2+ throughout GI Palpation (GI): Soft to palpation, nontender, No hepatosplenomegaly present and no masses Auscultation: normal bowel sounds Back/Spine/Pelvis Thoracic/Lumbar Spine: thoracic and lumbar spine normal to inspection Skin General skin exam: no rashes or lesions noted Neuro General: patient oriented x3 and no focal motor deficits Cranial nerves: Yes CN's II-XII intact bilaterally Extrem General: Yes normal to inspection, Yes no clubbing, cyanosis or edema and Yes no calf tenderness Psych Speech and movement: Normal speech and movement present Assessment & Plan Assessment & Plan (1) Asthma: Comment: Chronic allergic bronchial asthma. Mostly presenting in the form of cough. Relatively controlled at this time. TX : As under COPD. Code(s): J45.909 - Unspecified asthma, uncomplicated (2) Eosinophilia: Comment: She does have high eosinophil count, this may go along with her chronic allergies. IgE level Normal . Code(s): D72.10 - Eosinophilia, unspecified (3) COPD (chronic obstructive pulmonary disease): Comment: Patient has past history of smoking. Chest x-ray shows hyperinflated lung/pulmonary emphysema. PFT, C/W obstructive airway disorder, severe. . Explained the results to the patient TX : Continue using Advair 500-51 inhalation b.i.d.. Ipratropium-albuterol inhalation solution to be used in the nebulizer t.i.d.. Albuterol HFA 2 puffs Q 4-6 hours p.r.n.. Will add Azithromycin 250 mg po three days a week Okay to continue the herbal meds she has , as long as she is not getting any significant side effects. Code(s): J44.9 - Chronic obstructive pulmonary disease, unspecified Medications: New azithromycin For 250 mg dose pack: take 500 mg today (day 1), then 250 mg for 4 days (days 2-5) PO 6 tabs 0RF azithromycin 250 mg PO 3XW 13 tabs 5RF Asthma/Bronchitis 30 days Coding Level of Care Code Est Pt Level 3 (60403) Diagnoses Asthma J45.909 Eosinophilia D72.10 COPD (chronic obstructive pulmonary disease) J44.9
== END 2023-07-15 10:35 | disposition home or self-care (01) ==
PROVIDERS: PCP Nurse Practitioner Family; Visit Provider Internal Medicine
DX: J45.909 Unspecified asthma, uncomplicated (principal); D72.10 Eosinophilia, unspecified; J44.9 Chronic obstructive pulmonary disease, unspecified
CPT/HCPCS: 99213

== ENCOUNTER → 2023-07-15 10:11 | Outpatient (BNVA) | payer MEDICARE, SELFPAY | PROVIDERS: PCP Nurse Practitioner Family; Visit Provider Internal Medicine | DX: J45.909 Unspecified asthma, uncomplicated (principal); J44.9 Chronic obstructive pulmonary disease, unspecified; D72.10 Eosinophilia, unspecified | CPT/HCPCS: 99212 ==

== ENCOUNTER 2023-09-03 14:20 | Outpatient (AMB) | payer MEDICARE, SELFPAY ==
--- NOTE | 2023-09-03 14:46 | MHC.OFFVIS ---
Intake Intake Visit Reasons: 2m/cysto/MRI Intake Note: Patient presents today for a CYSTOSCOPY Procedure: Meds: None Allergies to Antibiotic: Amoxicillin & Augmentin Blood Thinner: None Urinalysis test cleared for Cysto Disposable Uro-G Cystoscope Cannula: Lot: [id number] Exp: 03/03/2025 Associate Chief Nurse Required: No Accompanied by: Self / Same As Patient Allergies amoxicillin [Augmentin] Allergy (Unknown, Verified 09/03/23 15:08) Anaphylaxis, diarrhea clavulanic acid [Augmentin] Allergy (Unknown, Verified 09/03/23 15:08) Anaphylaxis Self Adherent Wrap Adverse Reaction (Unknown, Uncoded 09/03/23 15:08) Hives to area HPI HPI Comments History of Present Illness Details Natalie is a 72-year-old female who presents today to the office for a follow-up. 09/03/2023? Natalie is followed for microscopic hematuria and complex renal cyst. She was seen last on 07/01/23. She presents today for office cysto. The patient had an MRI scan completed at [facility], but result is not available today for review. She denies any hematuria. She quit smoking about 40 years ago. Evaluation today?UA? leukocytes: negative; blood: 10 Nik. Cystoscopy finding today: Bladder was WNL. No suspicious bladder lesions noted. Review of chart: Imaging: Renal US results from 06/18/2023 revealed 2 complex cysts in the upper to mid right kidney. The largest measures 2.1 x 2.8 x 2 cm and contains questionable solid component with flow. Plan Once I obtain the result, I will review the MRI scan result on tele visit in two weeks. [facility] Medical History COPD (chronic obstructive pulmonary disease) Eosinophilia Cough Microhematuria Surgical History History of surgery Family History Mother No known health problems Father No known health problems Social History Household Members: None Housing: House Patient Tobacco Use Status: Former Tobacco user Years Smoked: 20 years e-Cigarette/Vaping Use: Never Used Current occupational status: retired Cognitive needs: No Hearing needs: No Vision needs: No Review of Systems Const All systems reviewed & are unremarkable except as noted in HPI and below Reports no additional complaints Eyes Reports no additional complaints ENT Reports no additional complaints Card Denies dyspnea Resp Denies cough and Denies dyspnea GI Reports no additional complaints Reports no additional complaints Musc Reports no additional complaints Skin/Breast Denies rash and Denies unusual bruising Neuro Reports no additional complaints Psych Reports no additional complaints Endo Reports no additional complaints Ayaan/Lymph Reports no additional complaints Aller/Immun Reports no additional complaints Physical Exam Const General: healthy appearing, no acute distress and well developed Orientation/consciousness: patient oriented x3 HEENT Head: Yes normocephalic and Yes atraumatic Eyes Conjunctivae: conjunctivae normal Neck Neck: Yes normal visual inspection Chest Chest palpation & inspection: normal inspection of the chest Resp Effort & Inspection: normal respiratory effort Cardio Rate: regular rate GI Inspection: Yes normal to inspection Skin General skin exam: no rashes or lesions noted Neuro General: patient oriented x3 Extrem General: Yes no pedal edema Psych Appearance: grossly normal Affect: normal affect Office Procedures Cystoscopy Consent Discussed risk and benefit or proposed procedure with the patient. Information consent for procedure given to the patient. Discussed technical aspects, risks, benefits and alternatives in full. Addressed all of the patient's questions and concerns regarding the procedure. The patient demonstrated knowledge and understanding. They wish to proceed with this procedure. Preparation The patient was prepped in the usual manner. A supervisor public health nursing was present and in the room. Genitalia was prepped with betadine solution in a sterile manner. Lidocaine Jelly 2% was placed into the urethra and 16Fr flexible Olympus cystoscope was inserted into the meatus after adequate lubrication. Procedure Time out per protocol performed. Bladder Inspection Bladder Inspection: The bladder was inspected in its entirety with utilization retroflexion displaying: Tumor(s): none visualized Trabeculation: N/A Mucosal Erthema: mild Orifices: normal shape and position Urethra: normal Cystoscopy findings: suspicious bladder lesions visualized [id number] DISPOSABLE SCOPE URO-G FLEXIBLE SCOPE Procedure code (CPT) selection complete Office Meds lidocaine HCl 2 % mucosal jelly in applicator Performing Provider: France Orourke MD Performing Location: [facility] Administered by: Una Whitman RN on 09/03/23 15:04 Dose Route Admin Location Dispensed Lot Number Expiration Date NDC Human Machine Interface Engineer 10 mL intra-urethral 20 mL naproxen 500 mg tablet Performing Provider: France Orourke MD Performing Location: [facility] Administered by: Una Whitman RN on 09/03/23 15:04 Dose Route Admin Location Dispensed Lot Number Expiration Date NDC Human Machine Interface Engineer 500 mg PO 1 tab ciprofloxacin HCl 500 mg tablet Performing Provider: France Orourke MD Performing Location: [facility] Administered by: Una Whitman RN on 09/03/23 15:04 Dose Route Admin Location Dispensed Lot Number Expiration Date NDC Human Machine Interface Engineer 500 mg PO 1 tab Results AMB Urinalysis, Automated UA Leukoctes 0 Raven/uL Last Edit by Prince Yu [facility] on 09/03/23 14:57 UA Nitrite Negative Last Edit by Prince Yu [facility] on 09/03/23 14:57 UA Urobilinogen 0.2 mg/dL Last Edit by Prince Yu [facility] on 09/03/23 14:57 UA Protein 15 mg/dL Last Edit by Prince Yu [facility] on 09/03/23 14:57 UA pH 7.0 Last Edit by Prince Yu [facility] on 09/03/23 14:57 UA Blood 10 Nik/uL Last Edit by Prince Yu [facility] on 09/03/23 14:57 UA Specific [place] 1.015 Last Edit by Prince Yu [facility] on 09/03/23 14:57 UA Ketone Negative Last Edit by Prince Yu [facility] on 09/03/23 14:57 UA Bilirubin 0 mg/dL Last Edit by Prince Yu [facility] on 09/03/23 14:57 UA Glucose 0 mg/dL Last Edit by Prince Yu [facility] on 09/03/23 14:57 Results Reviewed Results Reviewed: Laboratory Last Values Urine pH (Auto) 7.0 09/03/23 14:56 Specific [place] (Auto) 1.015 09/03/23 14:56 Urine Protein (Auto) 15 mg/dL 09/03/23 14:56 Glucose (UA)(Auto) 0 mg/dL 09/03/23 14:56 Urine Ketones (Auto) Negative 09/03/23 14:56 Urine Blood (Auto) 10 Nik/uL 09/03/23 14:56 Urine Nitrite (Auto) Negative 09/03/23 14:56 Urine Bilirubin (Auto) 0 mg/dL 09/03/23 14:56 Urine Urobilinogen (Auto) 0.2 mg/dL 09/03/23 14:56 Leukocyte Esterase (Auto) 0 Raven/uL 09/03/23 14:56 Date of Service: 06/18/23 EXAMINATION: US RETROPERITONEAL LIMITED (RENAL ONLY) FINDINGS: RIGHT KIDNEY: 10.3 x 4.3 x 5.8 cm (SAG x AP x TRV). The kidney is normal in size, contour, and echogenicity. Renal cortical thickness is normal. There are 2 adjacent complex cysts in the upper to mid right kidney. Largest measures 2.1 x 2.8 x 2 cm. This contains questionable solid component with flow. There is a 1.9 x 1.8 x 2 cm cyst with internal echoes questionable for echogenic debris. These are increased in size from 1.9 x 1.7 x 1.7 cm and 1.9 x 2.1 x 1.9 cm June 2022 exam. No calculi. No hydronephrosis. LEFT KIDNEY: 11 x 3.7 x 5 cm (SAG x AP x TRV). The kidney is normal in size, contour, and echogenicity. Renal cortical thickness is normal. No calculi or focal parenchymal lesions. No hydronephrosis. There is a 1.7 x 1.3 x 1.5 cm simple cyst in the lower pole. No imaging follow-up recommended. IMPRESSION: 2 complex cysts in the upper to mid right kidney. The largest measures 2.1 x 2.8 x 2 cm and contains questionable solid component with flow. Follow-up CT or MRI of the kidneys with and without contrast recommended. Assessment & Plan Assessment & Plan (1) Complex renal cyst: Code(s): N28.1 - Cyst of kidney, acquired (2) Microhematuria: Code(s): R31.29 - Other microscopic hematuria Plan Once I obtain the result, I will review the MRI scan result on tele visit in two weeks. Orders: Orders AMB Urinalysis Automated 09/03/23 Z13.9 - Encounter for screening, unspecified AMB Cystoscopy 09/03/23 N28.1 - Cyst of kidney, acquired, R31.29 - Other microscopic hematuria Patient Instructions: The patient had an opportunity to ask questions regarding treatment plan. All questions were answered. Imaging, Laboratory studies and physical exam results were discussed and reviewed in detail. No major barriers to understanding were identified. The patient expressed understanding and agreement with the above treatment plan. The patient is aware they should contact our office by phone for worsening of their current condition or the appearance of new symptoms. Compliance is encouraged with any medications and followup testing that is ordered. It is a privilege to be allowed the opportunity to participate in the urologic care of your patient. If you have any questions or concerns regarding treatment for the above conditions please do not hesitate to contact me. The office telephone contact is [phone]. This note is constructed in part using voice recognition software. While every effort has been made to ensure accuracy physician assistant certified errors may have been included. Yours sincerely, France Orourke MD Coding Level of Care Code Procedure Only Diagnoses Complex renal cyst N28.1 Microhematuria R31.29 CPT Codes Cystoscopy - CPT: [id number] ([id number])
== END 2023-09-03 15:24 | disposition home or self-care (01) ==
PROVIDERS: PCP Nurse Practitioner Family; Visit Provider Urology
DX: R31.29 Other microscopic hematuria (principal); N28.1 Cyst of kidney, acquired; Z13.9 Encounter for screening, unspecified
CPT/HCPCS: 52000

== ENCOUNTER → 2023-09-03 14:20 | Outpatient (BNVA) | payer MEDICARE, SELFPAY | PROVIDERS: PCP Nurse Practitioner Family; Visit Provider Urology | DX: N28.1 Cyst of kidney, acquired (principal); R31.29 Other microscopic hematuria | CPT/HCPCS: 52000; 81003 ==

== ENCOUNTER 2023-09-10 15:21 | Outpatient (AMB) | payer MEDICARE, SELFPAY ==
--- NOTE | 2023-09-10 16:01 | A.OFFVIS_ITS ---
Intake Intake Visit Reasons: 2w/MRI Allergies amoxicillin [Augmentin] Allergy (Unknown, Verified 09/03/23 15:08) Anaphylaxis, diarrhea clavulanic acid [Augmentin] Allergy (Unknown, Verified 09/03/23 15:08) Anaphylaxis Self Adherent Wrap Adverse Reaction (Unknown, Uncoded 09/03/23 15:08) Hives to area Medication List - Last Reconciled 09/11/23 by France Orourke MD albuterol sulfate 90 mcg/actuation (ProAir HFA) 2 puffs inhalation Q6H PRN 30 days albuterol sulfate 2.5 mg (3 mL) inhalation Q4-6H PRN 30 days ascorbate calcium (vitamin C) 500 mg PO DAILY azelaic acid 15% topical BID azithromycin For 250 mg dose pack: take 500 mg today (day 1), then 250 mg for 4 days (days 2-5) PO azithromycin 250 mg PO 3XW 30 days bisacodyl (Dulcolax (bisacodyl)) 20 mg (4 x 5 mg) PO ONCE 1 day buspirone 7.5 mg (1.5 x 5 mg) PO BID 30 days cholecalciferol (vitamin D3) 50 mcg PO DAILY diazepam (Valium) 2 mg orally dispense 2 doses PRN; Take one dose prior to office cysto Take one dose prior to MRI fluticasone propion-salmeterol 500-50 mcg/dose (Advair Diskus) 1 inh inhalation BID 30 days ipratropium-albuterol 0.5 mg-3 mg(2.5 mg base)/3 mL 3 mL inhalation Q12H PRN 30 days levocetirizine 5 mg PO QPM PRN ualiobuuvjwu-Oj-gjid-minerals tabs PO polyethylene glycol 3350 (Miralax) 238 grams PO ONCE PRN 1 day pravastatin 20 mg PO BEDTIME 90 days prednisone 20 mg PO BID pyridoxine (vitamin B6) 100 mg PO DAILY teriparatide (Forteo) 20 mcg (0.08 mL) subcut DAILY trazodone 50 mg PO BEDTIME PRN 30 days vitamin K2 100 mcg PO DAILY HPI HPI Comments History of Present Illness Details Natalie is a 72-year-old male who presents today via Tele-health visit for a follow-up. 09/10/2023? She is followed today for MRI results. She was last seen by me on 09/03/2023 for complex renal cyst. H/O nicotine dep endence. She quit smoking about 40 years ago. I reviewed the MRI results which revealed complex renal cyst meets the criteria of benign cyst; no enhancement noted. Review of chart: 07/01/2023?Cystoscopy finding today: Bladd er was WNL. No suspicious bladder lesions noted. Imaging: Renal US results from 06/18/2023 revealed 2 complex cysts in the upper to mid right kidney. The largest measures 2.1 x 2.8 x 2 cm and contains questionable solid component with flow. 09/10/2023: Plan: Monitor the kidneys and will check renal in one year and follow-up at that time. [facility] Medical History COPD (chronic obstructive pulmonary disease) Eosinophilia Cough Microhematuria Surgical History History of surgery Family History Mother No known health problems Father No known health problems Social History Household Members: None Housing: House Patient Tobacco Use Status: Former Tobacco user Years Smoked: 20 years e-Cigarette/Vaping Use: Never Used Current occupational status: retired Cognitive needs: No Hearing needs: No Vision needs: No Review of Systems Const All systems reviewed & are unremarkable except as noted in HPI and below Reports no additional complaints Eyes Reports no additional complaints ENT Reports no additional complaints Card Denies dyspnea Resp Denies cough and Denies dyspnea GI Reports no additional complaints Reports no additional complaints Musc Reports no additional complaints Skin/Breast Denies rash and Denies unusual bruising Neuro Reports no additional complaints Psych Reports no additional complaints Endo Reports no additional complaints Ayaan/Lymph Reports no additional complaints Aller/Immun Reports no additional complaints Physical Exam Const General: healthy appearing, no acute distress and well developed Orientation/consciousness: patient oriented x3 HEENT Head: Yes normocephalic and Yes atraumatic Eyes Conjunctivae: conjunctivae normal Neck Neck: Yes normal visual inspection Chest Chest palpation & inspection: normal inspection of the chest Resp Effort & Inspection: normal respiratory effort Cardio Rate: regular rate GI Inspection: Yes normal to inspection Skin General skin exam: no rashes or lesions noted Neuro General: patient oriented x3 Extrem General: Yes no pedal edema Psych Appearance: grossly normal Affect: normal affect Assessment & Plan Assessment & Plan (1) Complex renal cyst: Code(s): N28.1 - Cyst of kidney, acquired Orders: Orders US renal BI 10 Months N28.1 - Cyst of kidney, acquired Patient Instructions: The patient had an opportunity to ask questions regarding treatment plan. All questions were answered. Imaging, Laboratory studies and physical exam results were discussed and reviewed in detail. No major barriers to understanding were identified. The patient expressed understanding and agreement with the above treatment plan. The patient is aware they should contact our office by phone for worsening of their current condition or the appearance of new symptoms. Compliance is encouraged with any medications and followup testing that is ordered. It is a privilege to be allowed the opportunity to participate in the urologic care of your patient. If you have any questions or concerns regarding treatment for the above conditions please do not hesitate to contact me. The office telephone contact is [phone]. This note is constructed in part using voice recognition software. While every effort has been made to ensure accuracy repairer controller tester errors may have been included. Yours sincerely, France Orourke MD Telehealth Telehealth Location of provider rendering services: practice address Location of patient: address on file Patient Identification confirmed using: Name, : Yes Telehealth method: voice only Patient verbally consented to treatment: Yes Patient verbally consented to billing insurance company: Yes Patient informed of any privacy concerns related to visit: Yes Minutes spent on Phone/Video with Pt.: 15 Coding Level of Care Code Tele Est Pt Level 3 (76372) Diagnoses Complex renal cyst N28.1
== END 2023-09-10 16:30 ==
LOC: HO.HUSH 15:21
PROVIDERS: PCP Nurse Practitioner Family; Visit Provider Urology
DX: N28.1 Cyst of kidney, acquired (principal)
CPT/HCPCS: 99442

== ENCOUNTER → 2023-09-10 15:21 | Outpatient (BNVA) | payer MEDICARE, SELFPAY | PROVIDERS: PCP Nurse Practitioner Family; Visit Provider Urology ==

== ENCOUNTER 2023-09-27 12:19 | Day surgery (SDC) | payer MEDICARE, SELFPAY ==
--- NOTE | 2023-09-24 12:19 | P.CONAN_ITS ---
Documented by User: Nissa Hernandez NP 09/24/23 12:20 HPI - Anesthesia Eval Consult details Narrative: 73yo F for Colonoscopy PMFSH Active Problems Active Problems: All Active Problems (Updated 07/15/23 @ 10:44 by Virgil Vital MD) Anxiety (Acute) Complex renal cyst (Acute) COPD (chronic obstructive pulmonary disease) (Acute) Screening for colon cancer (Acute) Positive colorectal cancer screening using Cologuard test (Acute) Encounter for subsequent annual wellness visit (AWV) in Medicare patient (Acute) Eosinophilia (Acute) Cough (Acute) Pre-op evaluation (Acute) Microhematuria (Acute) Asthma (Acute) Night terrors (Acute) Insomnia (Acute) Abnormal urine cytology (Acute) Microhematuria (Acute) Weight loss (Acute) Osteoporosis (Acute) Encounter for annual wellness visit (AWV) in Medicare patient (Acute) Skin lesions (Acute) Postmenopausal (Acute) Dyslipidemia (Acute) Past Medical History Medical History COPD (chronic obstructive pulmonary disease) Eosinophilia Cough Microhematuria Family History Family History Mother No known health problems Father No known health problems Surgical History Surgical History History of surgery Social History Social History Household Members: None Housing: House Patient Tobacco Use Status: Former Tobacco user Years Smoked: 20 years e-Cigarette/Vaping Use: Never Used Are you DNR?: No Advance Directives: No Advance Directives Information Provided: Yes Nutrition Risks: No Nutritional Risk Current occupational status: retired Cognitive needs: No Hearing needs: No Vision needs: No Meds Allergies Allergy/AdvReac Type Severity Reaction Status Date / Time amoxicillin [Augmentin] Allergy Unknown Anaphylaxis, Verified 09/27/23 13:08 diarrhea clavulanic acid [Augmentin] Allergy Unknown Anaphylaxis Verified 09/27/23 13:08 Self Adherent Wrap AdvReac Unknown Hives to Uncoded 09/27/23 13:08 area Home Medications Medication Instructions Recorded Confirmed Last Taken Type ascorbate calcium (vitamin C) 500 500 mg PO DAILY 07/31/21 09/11/23 Unknown History mg tablet cholecalciferol (vitamin D3) 50 50 mcg PO DAILY 07/31/21 09/11/23 Unknown History mcg (2,000 unit) capsule idcapboztpgd-Ot-aaix-minerals tab PO 07/31/21 09/11/23 Unknown History pyridoxine (vitamin B6) 100 mg 100 mg PO DAILY 07/31/21 09/11/23 Unknown History tablet vitamin K2 100 mcg capsule 100 mcg PO DAILY 07/31/21 09/11/23 Unknown History azelaic acid 15 % topical gel topical BID 04/02/22 09/11/23 Unknown History Exam Pertinent Lab Results Pertinent Lab Results: Laboratory Tests 03/20/23 09:19 WBC 6.5 Hgb 13.5 Hct 41.6 Plt Count 326 Sodium 141 Potassium 4.1 Chloride 106 Carbon Dioxide 28 BUN 18 H Creatinine 0.64 Assessment and Plan Assessment Anesthesia Assessment: Chart Reviewed Documented by User: Maday Herrera MD 09/27/23 13:27 [facility] Past Medical History Medical History COPD (chronic obstructive pulmonary disease) Eosinophilia Cough Microhematuria Family History Family History Mother No known health problems Father No known health problems Family history of problems with anesthesia: No Surgical History Surgical History History of surgery History of Problems with Anesthesia: No Social History Social History Household Members: None Housing: House Patient Tobacco Use Status: Former Tobacco user Years Smoked: 20 years e-Cigarette/Vaping Use: Never Used Are you DNR?: No Advance Directives: No Advance Directives Information Provided: Yes Nutrition Risks: No Nutritional Risk Current occupational status: retired Cognitive needs: No Hearing needs: No Vision needs: No Meds Allergies Allergy/AdvReac Type Severity Reaction Status Date / Time amoxicillin [Augmentin] Allergy Unknown Anaphylaxis, Verified 09/27/23 13:08 diarrhea clavulanic acid [Augmentin] Allergy Unknown Anaphylaxis Verified 09/27/23 13:08 Self Adherent Wrap AdvReac Unknown Hives to Uncoded 09/27/23 13:08 area Home Medications Medication Instructions Recorded Confirmed Last Taken Type ascorbate calcium (vitamin C) 500 500 mg PO DAILY 07/31/21 09/11/23 Unknown History mg tablet cholecalciferol (vitamin D3) 50 50 mcg PO DAILY 07/31/21 09/11/23 Unknown History mcg (2,000 unit) capsule ardpttvlmhdf-Yu-nuvz-minerals tab PO 07/31/21 09/11/23 Unknown History pyridoxine (vitamin B6) 100 mg 100 mg PO DAILY 07/31/21 09/11/23 Unknown History tablet vitamin K2 100 mcg capsule 100 mcg PO DAILY 07/31/21 09/11/23 Unknown History azelaic acid 15 % topical gel topical BID 04/02/22 09/11/23 Unknown History Exam Airway Mallampati Class: II TM Dist: >3cm Neck ROM: Full Heart: rrr Lungs: cta Assessment and Plan Assessment Anesthesia Assessment: Anesthesia Plan Discussed Final Anesthetic Review Family History of Problems with Anesthesia: No History of Problems with Anesthesia: No NPO: Yes ASA Class: II Final Preanesthetic Review: No Changes in Pt Med Stat, Meds/Allgs Chart Reviewed and Consent Obtained/Reviewed Patient Risk: Intermediate Procedure Risk: Intermediate Anesthetic Plan Anesthetic Plan: MAC: Disposition: Standard PACU
[2023-09-27 13:07] VITALS: BMI 18.2
[2023-09-27] MEDS: Lactated Ringers 1,000 ML 100 ML IVCONT (13:29)
[2023-09-27 13:39] VITALS: BP 130/69; PULSE 85; RESP 18; TEMP 36.7; O2SAT 95
--- NOTE | 2023-09-27 14:27 | PC.NURSE ---
report given to jensen lpn rn at this time. aware to finalize with dr. dawn if she is having just a colonoscopy today or if EGD has been added on.
--- NOTE | 2023-09-27 14:32 | MHC.SHP ---
Pre-Procedural Eval Section A Date of Service: 09/27/23 The patient is an INPATIENT: No The History & Physical has been completed within 30 days and I have reviewed it.: No Section B Chief Complaint: Colon cancer screen, positive Cologuard, wt loss Relevant Family History (Specify if Yes): No Relevant Social History: Tobacco Use (Former smoker) Present Medications: see Short Stay Collaborative assessment Medical History: Significant History (COPD (chronic obstructive pulmonary disease) Eosinophilia Cough Microhematuria) History of Previous Operations: Relevant previous surgery/procedure and date(s) (History of right wrist surgery) Allergies: Allergies Allergy/AdvReac Type Severity Reaction Status Date / Time amoxicillin [Augmentin] Allergy Unknown Anaphylaxis, Verified 09/27/23 13:08 diarrhea clavulanic acid [Augmentin] Allergy Unknown Anaphylaxis Verified 09/27/23 13:08 Self Adherent Wrap AdvReac Unknown Hives to Uncoded 09/27/23 13:08 area Review of Systems Sugical H&P ROS: Negative: Constitution, Cardiovascular and Respiratory and Yes, Specify: Gastrointestinal (wt loss, decreased appetite) Exam Surgical H&P Exam: Normal: Heart, Normal: Lungs, Normal: Extremities and Normal: Abdomen Plan Diagnosis/Plan: Change (pt scheduled for an EGD and colon. EGD was not performed since pt stated it was not approved by her insurance) I have reviewed the history and physical and performed a pertinent physical examination on my patient. No changes have occurred unless specified. Time Spent With Patient Time: Total time managing care of this patient today ____ minutes.
--- NOTE | 2023-09-27 14:38 | W.PM.OPN ---
Operative Note Operative Note Date of Service: 09/27/23 Narrative: COLONOSCOPY TILL CECUM WITH SNARE POLYPECTOMY, SUBMUCOSAL INJECTION AND HEMOCLIP PLACEMENT Pre-op diagnosis: Colon cancer screening, positive Cologuard test Post-op diagnosis:? Colon polyps, diverticulosis Endoscopist:? Nataly Hassan MD Anesthesia:?MAC Consent: Indications for the procedure and potential complications of bleeding, perforation, reaction to medications and missed diagnosis were discussed with the patient and informed consent was obtained. Instrument: Olympus PCF H 190 L variable stiffness pediatric colonoscope Monitoring: Vital signs and clinical assessment, intermittent blood pressure monitoring, continuous EKG monitoring, Pulse oximetry and Carbon Dioxide monitoring were done throughout the procedure. Please see anesthesia flowsheet. Colon withdrawl time was 35 minutes. Procedure: The patient was placed in the left lateral decubitis position and pre-procedure medications were administered. After a digital rectal examination of the ano-rectum, the video colonoscope was inserted into the rectum and advanced through the colon to the cecum. The colonoscope was slowly withdrawn in a retrograde panoramic fashion and the colon mucosa was carefully examined including a retroflexed view of the rectum. Findings and interventions are described below. Procedure Difficulty: Without difficulty Findings: Terminal Ileum: Not evaluated Cecum: Normal Ascending Colon: A 7-8 mm sessile polyp in the proximal AC - removed with hot snare A 4 x 4.5 cms flat polyp in the mid AC at 60 cms. Polyp was raised with 10 cc of Eleview and removed piecemeal with a hot stiff snare. Polypectomy site was closed with 3 hemoclips marked with Krystal ink. Transverse Colon: Normal Descending Colon: Moderate diverticulosis Sigmoid Colon: Severe diverticulosis with luminal narrowing Rectum: Normal Ano-rectum: Normal Colon preparation: Good Impression and Post Procedure Diagnosis: Colonoscopy Findings: One small and one large polyps removed Moderate to severe diverticulosis seen in the left colon Plan: Await pathology results Patient has an appointment on 10/11/23 in the GI Clinic with DINA Ramos . Repeat Colonoscopy interval based on path results - in 6 months if polyps are adenomatous and 10 years if polyps are hyperplastic. Above findings were reviewed with the patient and colon polyps and diverticulosis handouts were given in the discharge area BIOPSIES SHOWED: A. Colon, ascending, polypectomy: Tubular adenoma; negative for high-grade dysplasia or carcinoma. B. Colon, ascending 60 cm, polypectomy: Tubulovillous adenoma; negative for high-grade dysplasia or carcinoma Letter sent advising repeat colonoscopy in 6 months.
[2023-09-27 15:32] VITALS: BP 103/49; PULSE 58; RESP 16; TEMP 36.6; O2SAT 98
[2023-09-27 15:47] VITALS: BP 113/50; PULSE 62; RESP 18; O2SAT 97
[2023-09-27 16:03] VITALS: BP 118/56; PULSE 62; RESP 18; TEMP 36.6; O2SAT 98
== END 2023-09-27 16:38 | disposition home or self-care (01) ==
PROVIDERS: PCP Nurse Practitioner Family; Visit Provider Internal Medicine Gastroenterology
PROC: 0DJD8ZZ Inspection of Lower Intestinal Tract, Via Natural or Artificial Opening Endoscopic (ICD-10-PCS; CPT 45378; principal; 2023-09-27 13:40)
DX: R19.5 Other fecal abnormalities (principal); D12.2 Benign neoplasm of ascending colon; D12.4 Benign neoplasm of descending colon; K57.30 Diverticulosis of large intestine without perforation or abscess without bleeding; R63.4 Abnormal weight loss; Z68.1 Body mass index [BMI] 19.9 or less, adult; R63.8 Other symptoms and signs concerning food and fluid intake; R31.29 Other microscopic hematuria; J44.9 Chronic obstructive pulmonary disease, unspecified; R05.3 Chronic cough; D72.10 Eosinophilia, unspecified; Z79.51 Long term (current) use of inhaled steroids; Z79.899 Other long term (current) drug therapy; Z88.1 Allergy status to other antibiotic agents; Z87.891 Personal history of nicotine dependence
CPT/HCPCS: 45385; 45381; 88305; J2704

== ENCOUNTER → 2023-09-27 12:19 | Outpatient (BNV) | payer MEDICARE, SELFPAY | PROVIDERS: PCP Nurse Practitioner Family; Visit Provider Internal Medicine Gastroenterology | DX: Z12.11 Encounter for screening for malignant neoplasm of colon (principal); R19.5 Other fecal abnormalities; D12.2 Benign neoplasm of ascending colon; K57.90 Diverticulosis of intestine, part unspecified, without perforation or abscess without bleeding | CPT/HCPCS: 45381; 45385 ==

== ENCOUNTER 2023-10-07 10:09 | Outpatient (REF) | payer MEDICARE, SELFPAY | END 2023-10-07 10:10 | disposition home or self-care (01) | LOC: HO.MAMMO 10:09 | PROVIDERS: PCP Nurse Practitioner Family; Visit Provider Nurse Practitioner Family | DX: Z12.31 Encounter for screening mammogram for malignant neoplasm of breast (principal) | CPT/HCPCS: 77063; 77067 ==

== ENCOUNTER → 2023-10-07 10:15 | Outpatient (BNV) | payer MEDICARE, SELFPAY | PROVIDERS: PCP Nurse Practitioner Family; Visit Provider Radiology Diagnostic Radiology | DX: Z12.31 Encounter for screening mammogram for malignant neoplasm of breast (principal) | CPT/HCPCS: 77063; 77067 ==

== ENCOUNTER 2023-10-11 11:24 | Outpatient (AMB) | payer MEDICARE, SELFPAY ==
--- NOTE | 2023-10-11 11:33 | MHC.OFFVIS ---
Intake Vital Signs 10/11/23 11:35 Height 5 ft 5 in Weight 108 lb BMI 18.0 BP 119/57 L Blood Pressure Location Lt brachial Position Sitting Pulse 91 Intake Visit Reasons: S/p Colon Mo Intake Note: Patient follow up for Colonoscopy results. Patient cc: weight loss and no appetite. Denies any other GI issues. Real Estate Consultant Required: No Accompanied by: Self / Same As Patient Allergies amoxicillin [Augmentin] Allergy (Unknown, Verified 10/11/23 11:30) Anaphylaxis, diarrhea clavulanic acid [Augmentin] Allergy (Unknown, Verified 10/11/23 11:30) Anaphylaxis Self Adherent Wrap Adverse Reaction (Unknown, Uncoded 09/27/23 13:08) Hives to area Medication List - Last Reconciled 10/12/23 by Cony Ross PA-C albuterol sulfate 90 mcg/actuation (ProAir HFA) 2 puffs inhalation Q6H PRN 30 days albuterol sulfate 2.5 mg (3 mL) inhalation Q4-6H PRN 30 days ascorbate calcium (vitamin C) 500 mg PO DAILY azelaic acid 15% topical BID azithromycin 250 mg PO 3XW 30 days buspirone 7.5 mg (1.5 x 5 mg) PO BID fluticasone propion-salmeterol 500-50 mcg/dose (Advair Diskus) 1 inh inhalation BID 30 days ipratropium-albuterol 0.5 mg-3 mg(2.5 mg base)/3 mL 3 mL inhalation Q12H PRN 30 days levocetirizine 5 mg PO QPM PRN pravastatin 20 mg PO BEDTIME 90 days teriparatide (Forteo) 20 mcg (0.08 mL) subcut DAILY trazodone 50 mg PO BEDTIME PRN 30 days vitamin K2 100 mcg PO DAILY HPI HPI Comments History of Present Illness Details A 73 y/o pleasant, very anxious, female f/u after colonoscopy with polypectomy - after positive cologuard- She says she is not eating well- she is losing weight-nausea, she has no apppetite- she has no pain-she does get nervous and feels this is affecting her appetite. She is taking medication she is unsure how effective it may be she denies depression- she admits to anxiety-she worries about her weight- former smoker- follows with pulmonary-had CXR- Review procedure report, pathology as well as recommendations She has no nausea, vomiting, hematemesis, hematochezia fever or chills PFS Medical History (Updated 10/12/23 @ 10:04 by Cony Ross PA-C) COPD (chronic obstructive pulmonary disease) Eosinophilia Cough Microhematuria Surgical History Hx of colonoscopy History of surgery Family History Mother No known health problems Father No known health problems Social History Household Members: None Housing: House Patient Tobacco Use Status: Former Tobacco user Years Smoked: 20 years e-Cigarette/Vaping Use: Never Used Current occupational status: retired Cognitive needs: No Hearing needs: No Vision needs: No Review of Systems Const All systems reviewed & are unremarkable except as noted in HPI and below ENT Denies dizziness Card Denies chest pain and Denies dyspnea Resp Denies dyspnea GI Denies abdominal pain, Denies bloating, Denies change in bowel habits and Reports nausea Neuro Denies dizziness Psych Reports anxiety Physical Exam Vital Signs: Last Vital Signs Pulse 91 10/11/23 11:35 BP 119/57 L 10/11/23 11:35 BMI result Body Mass Index 18.0 Extreme anxiety, Const General: cooperative, comfortable and no acute distress Nutritional Appearance: thin Orientation/consciousness: patient oriented x3 Limitations: no limitations Eyes Conjunctivae: conjunctivae normal Resp Effort & Inspection: normal respiratory effort and able to speak in complete sentences Auscultation: no rales, rhonchi and wheezes right upper Cardio Rate: regular rate Rhythm: regular rhythm Heart sounds: S1 normal heart sound present and S2 normal heart sound present GI Palpation (GI): Soft to palpation and nontender Auscultation: normal bowel sounds Skin General skin exam: no rashes or lesions noted Neuro General: patient oriented x3 Extrem General: Yes full ROM Psych Appearance: grossly normal and well kempt Mental Status: mental status grossly normal Speech and movement: Clear speech present Affect: Animated affect present and Anxious affect present Attitude: cooperative Thought process: Normal thought process present Thought content: Normal thought content present Insight: Good insight present (Psych) Judgement: Good judgement present (Psych) Results Reviewed Results Reviewed: 09/27/23 Findings: Terminal Ileum: Not evaluated Cecum: Normal Ascending Colon: A 7-8 mm sessile polyp in the proximal AC - removed with hot snare A 4 x 4.5 cms flat polyp in the mid AC at 60 cms. Polyp was raised with 10 cc of Eleview and removed piecemeal with a hot stiff snare. Polypectomy site was closed with 3 hemoclips marked with Krystal ink. Transverse Colon: Normal Descending Colon: Moderate diverticulosis Sigmoid Colon: Severe diverticulosis with luminal narrowing Rectum: Normal Ano-rectum: Normal Colon preparation: Good Impression and Post Procedure Diagnosis: Colonoscopy Findings: One small and one large polyps removed Moderate to severe diverticulosis seen in the left colon Plan: Await pathology results Patient has an appointment on 10/11/23 in the GI Clinic with DINA Ramos . Repeat Colonoscopy interval based on path results - in 6 months if polyps are adenomatous and 10 years if polyps are hyperplastic. Above findings were reviewed with the patient and colon polyps and diverticulosis handouts were given in the discharge area BIOPSIES SHOWED: A. Colon, ascending, polypectomy: Tubular adenoma; negative for high-grade dysplasia or carcinoma. B. Colon, ascending 60 cm, polypectomy: Tubulovillous adenoma; negative for high-grade dysplasia or carcinoma Letter sent advising repeat colonoscopy in 6 months. [id number] cysts Assessment & Plan Assessment & Plan (1) Tubulovillous adenoma: Comment: Ascending Colon: A 7-8 mm sessile polyp in the proximal AC - removed with hot snare A 4 x 4.5 cms flat polyp in the mid AC at 60 cms. Polyp was raised with 10 cc of Eleview and removed piecemeal with a hot stiff snare. Polypectomy site was closed with 3 hemoclips marked with Krystal in Code(s): D36.9 - Benign neoplasm, unspecified site Plan: repeat colonoscopy- 6 months (2) Tubular adenoma: Code(s): D36.9 - Benign neoplasm, unspecified site Plan: Colonoscopy 6 mos as recommended (3) Anorexia: Comment: anxiety- may play a role-needs further eval UGI series Code(s): R63.0 - Anorexia (4) Nausea: Comment: vague-intermittent Code(s): R11.0 - Nausea Plan: Monitor symptoms, try to ID specific UGI -if need will add EGD (5) Diverticulosis of colon: Code(s): K57.30 - Diverticulosis of large intestine without perforation or abscess without bleeding Plan: Maintain high-fiber diet ER protocol Plan EGD/ colon- 6 month- Dr. Hassan pls- established MG prep UGI series Orders: Orders EGD/[place] [facility] - GI Use Only 10/11/23 D36.9 - Benign neoplasm, unspecified site, R11.0 - Nausea, R63.0 - Anorexia, R63.4 - Abnormal weight loss [place] upper GI series 10/11/23 R11.0 - Nausea, R63.0 - Anorexia Patient Instructions: Pleasant extremely anxious 73-year-old female follows up after recent colonoscopy with polypectomy Recommend EGD/ colon- 6 month- Dr. Hassan pls- established-she is agreeable MG prep UGI series Diverticulosis HFD ER protocol diverticulosis/diverticulitis Coding Level of Care Code Est Pt Level 4 (12858) Diagnoses Tubulovillous adenoma D36.9 Tubular adenoma D36.9 Anorexia R63.0 Nausea R11.0 Diverticulosis of colon K57.30 Time Spent (min) 40
[2023-10-11 11:35] VITALS: BP 119/57; PULSE 91; BMI 18.0
== END 2023-10-11 12:22 | disposition home or self-care (01) ==
PROVIDERS: PCP Nurse Practitioner Family; Visit Provider Physician Assistant
DX: D36.9 Benign neoplasm, unspecified site (principal); R63.0 Anorexia; R11.0 Nausea; K57.30 Diverticulosis of large intestine without perforation or abscess without bleeding
CPT/HCPCS: 99214

== ENCOUNTER → 2023-10-11 11:24 | Outpatient (BNVA) | payer MEDICARE, SELFPAY | PROVIDERS: PCP Nurse Practitioner Family; Visit Provider Physician Assistant | DX: D36.9 Benign neoplasm, unspecified site (principal); R63.0 Anorexia; R11.0 Nausea; K57.30 Diverticulosis of large intestine without perforation or abscess without bleeding | CPT/HCPCS: 99212 ==

== ENCOUNTER 2023-10-21 12:50 | Outpatient (AMB) | payer MEDICARE, SELFPAY ==
--- NOTE | 2023-10-21 13:02 | A.OFFPC_ITS ---
Vital Signs 10/21/23 13:04 Height 5 ft 5 in Weight 108 lb BMI 18.0 BP 108/58 L Blood Pressure Location Rt brachial Position Sitting Pulse 92 Pulse Source Pulse Oximeter Pulse Oximetry (%) 98 Oxygen Delivery Method Room Air Intake Visit Reasons: 3m anxiety F/U Intake Note: Patient is here for anxiety follow up and states shes been having panic attacks and has been using some deep breathing. Allergies amoxicillin [Augmentin] Allergy (Unknown, Verified 10/21/23 13:06) Anaphylaxis, diarrhea clavulanic acid [Augmentin] Allergy (Unknown, Verified 10/21/23 13:06) Anaphylaxis Self Adherent Wrap Adverse Reaction (Unknown, Uncoded 10/21/23 13:06) Hives to area Medication List - Last Reconciled 10/21/23 by SUSANNE LandinP- albuterol sulfate 90 mcg/actuation (ProAir HFA) 2 puffs inhalation Q6H PRN 30 days albuterol sulfate 2.5 mg (3 mL) inhalation Q4-6H PRN 30 days ascorbate calcium (vitamin C) 500 mg PO DAILY azelaic acid 15% topical BID buspirone 10 mg PO BID 90 days fluticasone propion-salmeterol 500-50 mcg/dose (Advair Diskus) 1 inh inhalation BID 30 days ipratropium-albuterol 0.5 mg-3 mg(2.5 mg base)/3 mL 3 mL inhalation Q12H PRN 30 days levocetirizine 5 mg PO QPM PRN lorazepam 0.5 mg PO DAILY PRN 30 days pravastatin 20 mg PO BEDTIME 90 days teriparatide (Forteo) 20 mcg (0.08 mL) subcut DAILY trazodone 50 mg PO BEDTIME PRN 30 days vitamin K2 100 mcg PO DAILY Tobacco use date assessed: 07/08/23 HPI 3m anxiety F/U HPI Details anxiety: ongoing, though reports the buspirone does help. Will increase buspirone from 7.5mg to 10mg bid. She describes severe panic attacks, which go for days at a time. Pt is not a fan of SSRIs or SNRIs. I will send a supply of a benzo, but she knows she cannot take this daily, cannot share the med, or drive on the medication. Pt denies any SI or HI. Pt does not want a therapist. [facility] Medical History COPD (chronic obstructive pulmonary disease) Eosinophilia Cough Microhematuria Surgical History Hx of colonoscopy History of surgery Family History Mother No known health problems Father No known health problems Social History Household Members: None Housing: House Patient Tobacco Use Status: Former Tobacco user Years Smoked: 20 years e-Cigarette/Vaping Use: Never Used Current occupational status: retired Cognitive needs: No Hearing needs: No Vision needs: No Questionnaire Thrive Questionnaire Date Thrive assessed: 01/26/22 NI-7 AMB Questionnaire NI-7 Date NI - 7 assessed: 10/21/23 Feeling nervous, anxious, or on edge: 3 = Nearly every day Not being able to stop or control worryin = Several days Worrying too much about different things: 2 = More than half the days Trouble relaxin = Several days Being so restless that it is hard to sit still: 0 = Not at all Becoming easily annoyed or irritable: 0 = Not at all Feeling afraid as if something awful might happen: 2 = More than half the days Total NI-7 score (0-4 normal; 5-9 mild; 10-14 moderate; 15-21 severe): 9 Source: Developed by Drs. Farooq Griffin, Ruth Hi, Matheus Mckinley and colleagues, with an educational jhon from [employer]. NI-7 Assessment Billing NI-7 Assessment Tool: NI-7 Assessment 66921 Physical exam (Primary Care) Vital Signs: Last Vital Signs Pulse 92 10/21/23 13:04 BP 108/58 L 10/21/23 13:04 Pulse Ox 98 10/21/23 13:04 Oxygen Delivery Method Room Air 10/21/23 13:04 BMI result Body Mass Index 18.0 Tobacco/Smoking Status: Tobacco use Status Tobacco use date assessed 07/08/23 10/21/23 13:03 Patient Tobacco Use Status Former Tobacco user 10/21/23 13:03 e-Cigarette/Vaping Use Never Used 10/21/23 13:03 Thrive Assessment: Date of Thrive Assessment Date Thrive assessed 01/26/22 10/21/23 13:03 Const General: cooperative, healthy appearing and comfortable Resp Effort & Inspection: normal respiratory effort Auscultation: clear to auscultation bilaterally Cardio Rate: regular rate Rhythm: regular rhythm Heart sounds: S1 normal heart sound present and S2 normal heart sound present Psych Appearance: grossly normal Mental Status: mental status grossly normal Speech and movement: Normal speech and movement present Affect: normal affect Attitude: cooperative Thought process: Normal thought process present Thought content: Normal thought content present Insight: Good insight present (Psych) Judgement: Good judgement present (Psych) Assessment and Plan Assessment & Plan (1) Anxiety: Code(s): F41.9 - Anxiety disorder, unspecified (2) Panic attacks: Code(s): F41.0 - Panic disorder [episodic paroxysmal anxiety] Medications: New lorazepam 0.5 mg PO DAILY PRN 30 tabs 0RF panic attack(s) 30 days Changed From buspirone 7.5 mg (1.5 x 5 mg) PO BID 90 tabs 5RF To buspirone 10 mg PO BID 180 tabs 5RF 90 days Coding Level of Care Code Est Pt Level 3 (09164) Diagnoses Anxiety F41.9 Panic attacks F41.0 Additional Codes NI-7 Assessment Billing - NI-7 Assessment Tool: NI-7 Assessment 35503 ([id number])
[2023-10-21 13:04] VITALS: BP 108/58; PULSE 92; O2SAT 98; BMI 18.0
== END 2023-10-21 13:48 | disposition home or self-care (01) ==
PROVIDERS: PCP Nurse Practitioner Family; Visit Provider Nurse Practitioner Family
DX: F41.9 Anxiety disorder, unspecified (principal); F41.0 Panic disorder [episodic paroxysmal anxiety]
CPT/HCPCS: 96127; 99213

== ENCOUNTER → 2023-11-08 11:20 | Outpatient (BNVA) | payer MEDICARE, SELFPAY | PROVIDERS: PCP Nurse Practitioner Family; Visit Provider Internal Medicine Endocrinology, Diabetes & Metabolism ==

== ENCOUNTER 2023-12-15 11:17 | Outpatient (AMB) | payer MEDICARE, SELFPAY ==
[2023-12-15 11:42] VITALS: BP 120/62; PULSE 77; O2SAT 96; BMI 18.3
--- NOTE | 2023-12-15 11:42 | AM.OFFWIN_ITS ---
Intake Vital Signs 12/15/23 11:42 Height 5 ft 5 in Weight 110 lb BMI 18.3 BP 120/62 Blood Pressure Location Lt brachial Position Sitting Pulse 77 Pulse Source Pulse Oximeter Pulse Oximetry (%) 96 Oxygen Delivery Method Room Air Intake Visit Reasons: EP ?Sinus infection Intake Note: pt is here today for sinus infection started 11/18 Patient Tobacco Use Status: Former Tobacco user Allergies amoxicillin [Augmentin] Allergy (Unknown, Verified 12/15/23 11:43) Anaphylaxis, diarrhea clavulanic acid [Augmentin] Allergy (Unknown, Verified 12/15/23 11:43) Anaphylaxis Self Adherent Wrap Adverse Reaction (Unknown, Uncoded 10/21/23 13:06) Hives to area Do you need a note to return to daycare/school/sports/work: No HPI HPI Comments History of Present Illness Details 73 y/o female who presents to walk in [facility] with c/o Sinus pressure for 1 month now. Reports mild fevers at home associated with chills. Denies nausea or vomiting. Reports good appetite and has been drinking plenty of fluids. [facility] Medical History COPD (chronic obstructive pulmonary disease) Eosinophilia Cough Microhematuria Surgical History Hx of colonoscopy History of surgery Family History Mother No known health problems Father No known health problems Social History Household Members: None Housing: House Patient Tobacco Use Status: Former Tobacco user Years Smoked: 20 years e-Cigarette/Vaping Use: Never Used Current occupational status: retired Cognitive needs: No Hearing needs: No Vision needs: No Review of Systems Const All systems reviewed & are unremarkable except as noted in HPI and below Physical Exam Vital Signs: Last Vital Signs Pulse 77 12/15/23 11:42 BP 120/62 12/15/23 11:42 Pulse Ox 96 12/15/23 11:42 Oxygen Delivery Method Room Air 12/15/23 11:42 BMI result Body Mass Index 18.3 Const General: comfortable and no acute distress HEENT Head: Yes normocephalic Ears: external ears normal and TM's normal bilaterally General nose exam: Normal nasal mucous membranes and turbinates present Face and sinus: Yes sinus tenderness Mouth: moist mucous membranes Throat: Yes posterior oropharynx normal Resp Effort & Inspection: normal respiratory effort and able to speak in complete sentences Auscultation: clear to auscultation bilaterally Cardio Rate: regular rate Rhythm: regular rhythm Assessment & Plan Assessment & Plan (1) Acute rhinosinusitis: Code(s): J01.90 - Acute sinusitis, unspecified Plan: - Rest - Hydrate with warm fluids - Abx as prescribed. Medications: New doxycycline hyclate 100 mg PO BID 5 days 10 caps 0RF J01.90 - Acute sinusitis, unspecified Coding Level of Care Code Est Pt Level 3 (84404) Diagnoses Acute rhinosinusitis J01.90 Time Spent (min) 15
== END 2023-12-15 14:00 | disposition home or self-care (01) ==
PROVIDERS: PCP Nurse Practitioner Family; Visit Provider Nurse Practitioner Family
DX: J01.90 Acute sinusitis, unspecified (principal)
CPT/HCPCS: 99213

== ENCOUNTER 2024-01-17 15:05 | Outpatient (AMB) | payer MEDICARE, SELFPAY ==
[2024-01-17 15:12] VITALS: BP 116/58; PULSE 115; BMI 18.4
--- NOTE | 2024-01-17 15:12 | A.OFFVIS_ITS ---
Intake Vital Signs 01/17/24 15:12 Height 5 ft 5 in Weight 110 lb 7.225 oz BMI 18.4 BP 116/58 L Blood Pressure Location Lt brachial Position Sitting Pulse 115 H Pulse Source Pulse Oximeter Intake Visit Reasons: Osteoporosis-lvm Intake Note: Patient presents today for Osteoporosis follow up visit. Return Agent Required: No Accompanied by: Self / Same As Patient Allergies amoxicillin [Augmentin] Allergy (Unknown, Verified 01/17/24 15:19) Anaphylaxis, diarrhea clavulanic acid [Augmentin] Allergy (Unknown, Verified 01/17/24 15:19) Anaphylaxis Self Adherent Wrap Adverse Reaction (Unknown, Uncoded 01/17/24 15:19) Hives to area Medication List - Last Reconciled 01/17/24 by Farooq Doyle MD albuterol sulfate 90 mcg/actuation (ProAir HFA) 2 puffs inhalation Q6H PRN 30 days albuterol sulfate 2.5 mg (3 mL) inhalation Q4-6H PRN 30 days ascorbate calcium (vitamin C) 500 mg PO DAILY buspirone 10 mg PO BID 90 days fluticasone propion-salmeterol 230-21 mcg/actuation (Advair HFA) 2 puffs inhalation BID ipratropium-albuterol 0.5 mg-3 mg(2.5 mg base)/3 mL 3 mL inhalation Q12H PRN 30 days levocetirizine 5 mg PO QPM PRN lorazepam 0.5 mg PO DAILY PRN 30 days pravastatin 20 mg PO BEDTIME 90 days teriparatide (Forteo) 20 mcg (0.08 mL) subcut DAILY trazodone 50 mg PO BEDTIME PRN 30 days vitamin K2 100 mcg PO DAILY HPI HPI Comments History of Present Illness Details This is a 73-year-old white female previously for osteoporosis. . She has no prior history of fractures . never took a bisphosphonate . Secondary workup was performed which was negative. Not On Forteo 20 mcg QD EXAMINATION: BONE DENSITOMETRY CLINICAL INDICATION: Asymptomatic menopausal state. COMPARISON: Previous BD dated 11/11/2018 and baseline BD dated 03/04/2018. TECHNIQUE: Using a [employer] DXA System (software version: 13.1) manufactured by [employer], tomas l-energy x-ray absorptiometry was performed of the lumbar spine and left hip. The images are of good technical quality. Summary results are attached. FINDINGS: AP SPINE L1-L3 (excluding L4): The data of L1-L4 has been changed to exclude the L4 vertebral body, because degenerative sclerosis at this level may cause overestimation of lumbar spine density. Current: BMD 0.642 g/cm2, Z-score -2.3, T-score -4.4, osteoporosis, 11.3% decrease from previous, 4.7% decre ase from baseline (<5% change is not significant). Prior: BMD 0.724 g/cm2. Baseline: BMD 0.674 g/cm2. LEFT FEMUR, NECK: Current: BMD 0.594 g/cm2, Z-score -1.2, T-score -3.2, osteoporosis. Prior: BMD 0.655 g/cm2. Baseline: BMD 0.604 g/cm2. LEFT FEMUR, TOTAL: Current: BMD 0.554 g/cm2, Z-score -1.8, T-score -3.6, osteoporosis, 13.3% decrease from previous, 14.4% decr ease from baseline (<5% change is not significant). Prior: BMD 0.639 g/cm2. Baseline: BMD 0.647 g/cm2. Currently on Forteo 20 mcg q.d.Having some side effects of dizziness, brain fog. Willing to try for another one. [facility] Medical History COPD (chronic obstructive pulmonary disease) Eosinophilia Cough Microhematuria Surgical History Hx of colonoscopy History of surgery Family History Mother No known health problems Father No known health problems Social History Household Members: None Housing: House Patient Tobacco Use Status: Former Tobacco user Years Smoked: 20 years e-Cigarette/Vaping Use: Never Used Current occupational status: retired Cognitive needs: No Hearing needs: No Vision needs: No Physical Exam Vital Signs: Last Vital Signs Pulse 115 H 01/17/24 15:12 BP 116/58 L 01/17/24 15:12 BMI result Body Mass Index 18.4 Assessment & Plan Assessment & Plan (1) Osteoporosis: Code(s): M81.0 - Age-related osteoporosis without current pathological fracture Plan: This 73-year-old white female with a history of osteoporosis currently on calcium and vitamin-D supplementation. Secondary workup has been negative. Patient has tried oral bisphosphonate with side effects . Currently on Forteo since . Plan is to continue Forteo for 2 year course. She should continue with calcium and vitamin-D supplementation. If she can not tolerate the Forteo, we can revisit iEvenity at [place] Coding Level of Care Code Est Pt Level 3 (65146) Diagnoses Osteoporosis M81.0
== END 2024-01-17 15:59 | disposition home or self-care (01) ==
PROVIDERS: PCP Nurse Practitioner Family; Visit Provider Internal Medicine Endocrinology, Diabetes & Metabolism
DX: M81.0 Age-related osteoporosis without current pathological fracture (principal)
CPT/HCPCS: 99213

== ENCOUNTER → 2024-01-17 15:05 | Outpatient (BNVA) | payer MEDICARE, SELFPAY | PROVIDERS: PCP Nurse Practitioner Family; Visit Provider Internal Medicine Endocrinology, Diabetes & Metabolism | DX: M81.0 Age-related osteoporosis without current pathological fracture (principal) | CPT/HCPCS: 99212 ==

== ENCOUNTER 2024-01-24 13:57 | Outpatient (AMB) | payer MEDICARE, SELFPAY ==
--- NOTE | 2024-01-24 14:00 | MHC.PC.OV ---
Vital Signs 01/24/24 14:03 Height 5 ft 3 in Weight 111 lb BMI 19.7 BP 122/76 Blood Pressure Location Rt brachial Position Sitting Pulse 93 Pulse Source Pulse Oximeter Pulse Oximetry (%) 96 Oxygen Delivery Method Room Air Intake Visit Reasons: 3-4 Month follow up Intake Note: Patient here for anxiety f/u. Allergies amoxicillin [Augmentin] Allergy (Unknown, Verified 01/24/24 14:17) Anaphylaxis, diarrhea clavulanic acid [Augmentin] Allergy (Unknown, Verified 01/24/24 14:17) Anaphylaxis Self Adherent Wrap Adverse Reaction (Unknown, Uncoded 01/24/24 14:17) Hives to area Medication List - Last Reconciled 01/24/24 by Juancho Fitzgerald, PATIENT SAFETY MANAGER- albuterol sulfate 90 mcg/actuation (ProAir HFA) 2 puffs inhalation Q6H PRN 30 days albuterol sulfate 2.5 mg (3 mL) inhalation Q4-6H PRN 30 days ascorbate calcium (vitamin C) 500 mg PO DAILY buspirone 10 mg PO BID 90 days carica papaya tabs PO DAILY cholecalciferol (vitamin D3) 10 mcg PO DAILY fluticasone propion-salmeterol 230-21 mcg/actuation (Advair HFA) 2 puffs inhalation BID ipratropium-albuterol 0.5 mg-3 mg(2.5 mg base)/3 mL 3 mL inhalation Q12H PRN 30 days levocetirizine 5 mg PO QPM PRN lorazepam 0.5 mg PO DAILY PRN 30 days multivitamin 1 tab PO DAILY pravastatin 20 mg PO BEDTIME 90 days teriparatide (Forteo) 20 mcg (0.08 mL) subcut DAILY trazodone 50 mg PO BEDTIME PRN 30 days vitamin K2 100 mcg PO DAILY Tobacco use date assessed: 01/24/24 Fall risk assessment: No Falls in past year Last assessed Fall Risk: 01/24/24 Dental Screening Dental Screen Date: 01/24/24 Did you have a dental visit in the last 12 months?: Yes Did you have a dental problem in the last 6 months where you did not have access to dental care?: No Was dental information given to patient?: Patient has dentist HPI 3-4 Month follow up HPI Details Anxiety: Pt is currently taking buspirone 10mg and lorazepam 0.5mg prn. Pt reports that these medications are helpful. Denies any SI and HI. Will continue to monitor. [facility] Medical History COPD (chronic obstructive pulmonary disease) Eosinophilia Cough Microhematuria Surgical History Hx of colonoscopy History of surgery Family History Mother No known health problems Father No known health problems Social History Household Members: None Housing: House Patient Tobacco Use Status: Former Tobacco user Years Smoked: 20 years e-Cigarette/Vaping Use: Never Used Current occupational status: retired Cognitive needs: No Hearing needs: No Vision needs: No Questionnaire Thrive Questionnaire Date Thrive assessed: 01/26/22 NI-7 AMB Questionnaire NI-7 Date NI - 7 assessed: 10/21/23 Source: Developed by Drs. Farooq Griffin, Ruth Hi, Matheus Mckinley and colleagues, with an educational jhon from [employer]. Review of Systems Const Reports as per HPI Physical exam (Primary Care) Vital Signs: Last Vital Signs Pulse 93 01/24/24 14:03 BP 122/76 01/24/24 14:03 Pulse Ox 96 01/24/24 14:03 Oxygen Delivery Method Room Air 01/24/24 14:03 BMI result Body Mass Index 19.7 Tobacco/Smoking Status: Tobacco use Status Tobacco use date assessed 01/24/24 01/24/24 14:07 Patient Tobacco Use Status Former Tobacco user 01/24/24 14:03 e-Cigarette/Vaping Use Never Used 01/24/24 14:03 Thrive Assessment: Date of Thrive Assessment Date Thrive assessed 01/26/22 01/24/24 14:03 Const General: cooperative Orientation/consciousness: patient oriented x3 Resp Effort & Inspection: normal respiratory effort Auscultation: clear to auscultation bilaterally and wheezes Cardio Rate: regular rate Rhythm: regular rhythm Heart sounds: S1 normal heart sound present, S2 normal heart sound present and Murmur heart sound present Neuro General: patient oriented x3 Psych Appearance: grossly normal Mental Status: mental status grossly normal Speech and movement: Normal speech and movement present Affect: normal affect Attitude: cooperative Thought process: Normal thought process present Thought content: Normal thought content present Insight: Good insight present (Psych) Judgement: Good judgement present (Psych) Assessment and Plan Assessment & Plan (1) Panic attacks: Code(s): F41.0 - Panic disorder [episodic paroxysmal anxiety] Plan: Labs ordered, continue current meds (2) Osteoporosis: Code(s): M81.0 - Age-related osteoporosis without current pathological fracture Plan The patient agreed to the use of a medical imaging specialist for this encounter. Scribed for HARSHA Ken by Nenita Brown medical imaging specialist, on 01/24/2024 at 14:15 EST. Orders: Orders Lipid Panel Today F41.0 - Panic disorder [episodic paroxysmal anxiety] Vitamin D 25-OH Total Today M81.0 - Age-related osteoporosis without current pathological fracture Complete Blood Count Auto Diff Today F41.0 - Panic disorder [episodic paroxysmal anxiety] Comprehensive [place]. Panel Fast Today F41.0 - Panic disorder [episodic paroxysmal anxiety] TSH reflex Free T4 Today F41.0 - Panic disorder [episodic paroxysmal anxiety] UA CC w/rflx Micro + Cult Today F41.0 - Panic disorder [episodic paroxysmal anxiety] Coding Level of Care Code Est Pt Level 3 (64501) Diagnoses Panic attacks F41.0 Osteoporosis M81.0
[2024-01-24 14:03] VITALS: BP 122/76; PULSE 93; O2SAT 96; BMI 19.7
== END 2024-01-24 16:10 | disposition home or self-care (01) ==
PROVIDERS: PCP Nurse Practitioner Family; Visit Provider Nurse Practitioner Family
DX: F41.0 Panic disorder [episodic paroxysmal anxiety] (principal); M81.0 Age-related osteoporosis without current pathological fracture
CPT/HCPCS: 99213

== ENCOUNTER 2024-02-03 10:31 | Outpatient (AMB) | payer MEDICARE, SELFPAY ==
--- NOTE | 2024-02-03 10:38 | A.OFFVIS_ITS ---
Intake Vital Signs 02/03/24 10:39 Height 5 ft 3 in Weight 108 lb BMI 19.1 BP 129/63 Blood Pressure Location Lt brachial Position Sitting Pulse 72 Intake Visit Reasons: pre colo screening Intake Note: Juhi presents in the office as a colonoscopy screening. CC: No concerns at this time. Woodyard Crane Operator Required: No Allergies amoxicillin [Augmentin] Allergy (Unknown, Verified 02/03/24 10:38) Anaphylaxis, diarrhea clavulanic acid [Augmentin] Allergy (Unknown, Verified 02/03/24 10:38) Anaphylaxis Self Adherent Wrap Adverse Reaction (Unknown, Uncoded 02/03/24 10:38) Hives to area Medication List - Last Reconciled 02/03/24 by Cony Ross PA-C albuterol sulfate 90 mcg/actuation (ProAir HFA) 2 puffs inhalation Q6H PRN 30 days albuterol sulfate 2.5 mg (3 mL) inhalation Q4-6H PRN 30 days ascorbate calcium (vitamin C) 500 mg PO DAILY buspirone 10 mg PO BID 90 days carica papaya tabs PO DAILY cholecalciferol (vitamin D3) 10 mcg PO DAILY fluticasone propion-salmeterol 230-21 mcg/actuation (Advair HFA) 2 puffs inhalation BID ipratropium-albuterol 0.5 mg-3 mg(2.5 mg base)/3 mL 3 mL inhalation Q12H PRN 30 days levocetirizine 5 mg PO QPM PRN lorazepam 0.5 mg PO DAILY PRN 30 days multivitamin 1 tab PO DAILY pravastatin 20 mg PO BEDTIME 90 days teriparatide (Forteo) 20 mcg (0.08 mL) subcut DAILY trazodone 50 mg PO BEDTIME PRN 30 days vitamin K2 100 mcg PO DAILY HPI HPI Comments History of Present Illness Details 73-year-old female personal history colo n polyps tubulovillous adenoma Last colonoscopy 09/2023-with anorexia as well, we had scheduled upper GI series She says UGI series was not covered by insurance Appetite is improved- wt- stable- she declines EGD at this time- She is taking medication for anxiety which has been very helpful-lorazepam Overall feels she is doing much better. No issues with her bowels COPD she-has not had any issues. She has no nausea, vomiting, hematemesis, hematochezia fever or chills PFSH Medical History COPD (chronic obstructive pulmonary disease) Eosinophilia Cough Microhematuria Surgical History Hx of colonoscopy History of surgery Family History Mother No known health problems Father No known health problems Social History Household Members: None Housing: House Patient Tobacco Use Status: Former Tobacco user Years Smoked: 20 years e-Cigarette/Vaping Use: Never Used Current occupational status: retired Cognitive needs: No Hearing needs: No Vision needs: No Review of Systems Const All systems reviewed & are unremarkable except as noted in HPI and below Denies chills, Denies fever(s) and Denies poor appetite Card Denies chest pain GI Denies abdominal pain, Denies change in bowel habits, Denies heartburn, Denies nausea and Denies vomiting Psych Reports anxiety Physical Exam Vital Signs: Last Vital Signs Pulse 72 02/03/24 10:39 BP 129/63 02/03/24 10:39 BMI result Body Mass Index 19.1 Const General: cooperative and comfortable Orientation/consciousness: patient oriented x3 Limitations: no limitations Eyes Sclerae: sclerae normal Resp Effort & Inspection: normal respiratory effort, able to speak in complete sentences and Actively coughing Auscultation: clear to auscultation bilaterally, no rales, no rhonchi and no wheezes Cardio Rate: regular rate Rhythm: regular rhythm Heart sounds: S1 normal heart sound present and S2 normal heart sound present Skin General skin exam: no rashes or lesions noted Neuro General: patient oriented x3 Extrem General: Yes full ROM Psych Appearance: grossly normal and well kempt Mental Status: mental status grossly normal Speech and movement: Normal speech and movement present and Clear speech present Affect: normal affect and Anxious affect present Attitude: cooperative Thought process: Normal thought process present Thought content: Normal thought content present Insight: Good insight present (Psych) Judgement: Good judgement present (Psych) Results Reviewed Results Reviewed: Impression and Post Procedure Diagnosis: Colonoscopy Findings: One small and one large polyps removed Moderate to severe diverticulosis seen in the left colon Plan: Await pathology results Patient has an appointment on 10/11/23 in the GI [facility] with DINA Ramos . Repeat Colonoscopy interval based on path results - in 6 months if polyps are adenomatous and 10 years if polyps are hyperplastic. Above findings were reviewed with the patient and colon polyps and diverticulosis handouts were given in the discharge area BIOPSIES SHOWED: A. Colon, ascending, polypectomy: Tubular adenoma; negative for high-grade dysplasia or carcinoma. B. Colon, ascending 60 cm, polypectomy: Tubulovillous adenoma; negative for high-grade dysplasia or carcinoma Letter sent advising repeat colonoscopy in 6 months. Assessment & Plan Assessment & Plan (1) Tubulovillous adenoma: Comment: Ascending Colon: A 7-8 mm sessile polyp in the proximal AC - removed with hot snare A 4 x 4.5 cms flat polyp in the mid AC at 60 cms. Polyp was raised with 10 cc of Eleview and removed piecemeal with a hot stiff snare. Polypectomy site was closed with 3 hemoclips marked with Krystal in Code(s): D36.9 - Benign neoplasm, unspecified site (2) Tubular adenoma: Code(s): D36.9 - Benign neoplasm, unspecified site (3) Diverticulosis of colon: Code(s): K57.30 - Diverticulosis of large intestine without perforation or abscess without bleeding Plan: reviewed- ER protocol HFD Foods to avoid Plan Repeat colonoscopy- Dr. Hassan Anesthesia consult- COPD/ MG prep Orders: Orders Colonoscopy - GI Use Only Today D36.9 - Benign neoplasm, unspecified site, K57.30 - Diverticulosis of large intestine without perforation or abscess without bleeding Medications: New bisacodyl (Dulcolax (bisacodyl)) Day before procedure @ 12 noon Take 4 tablets by mouth followed by large glass of water 20 mg (4 x 5 mg) PO ONCE PRN 4 tabs 0RF colonoscopy prep 1 day Z12.11 - Encounter for screening for malignant neoplasm of colon polyethylene glycol 3350 (Miralax) Take as directed by mouth the day before your procedure. 238 grams PO ONCE PRN 238 grams 0RF laxative effect 1 day Patient Instructions: Hx adenoma- tubulovillous Repeat polyp surveillance colonoscopy- Dr. Hassan Anesthesia consult- COPD/ MG prep, reviewed, lit given reviewed- ER protocol HFD Foods to avoid Coding Level of Care Code Est Pt Level 3 (34724) Diagnoses Tubulovillous adenoma D36.9 Tubular adenoma D36.9 Diverticulosis of colon K57.30 Time Spent (min) 25
[2024-02-03 10:39] VITALS: BP 129/63; PULSE 72; BMI 19.1
== END 2024-02-03 11:10 | disposition home or self-care (01) ==
PROVIDERS: PCP Nurse Practitioner Family; Visit Provider Physician Assistant
DX: D36.9 Benign neoplasm, unspecified site (principal); K57.30 Diverticulosis of large intestine without perforation or abscess without bleeding
CPT/HCPCS: 99213

== ENCOUNTER → 2024-02-03 10:31 | Outpatient (BNVA) | payer MEDICARE, SELFPAY | PROVIDERS: PCP Nurse Practitioner Family; Visit Provider Physician Assistant | DX: Z01.818 Encounter for other preprocedural examination (principal); K57.30 Diverticulosis of large intestine without perforation or abscess without bleeding; D36.9 Benign neoplasm, unspecified site | CPT/HCPCS: 99212 ==

== ENCOUNTER 2024-06-15 11:31 | Outpatient (AMB) | payer MEDICARE, SELFPAY ==
[2024-06-15 11:37] VITALS: BP 118/66; PULSE 74; O2SAT 97; BMI 19.1
--- NOTE | 2024-06-15 11:37 | A.OFFPC_ITS ---
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 Required: No Accompanied by: Self / Same As Patient Allergies amoxicillin [Augmentin] Allergy (Unknown, Verified 06/15/24 12:29) Anaphylaxis, diarrhea clavulanic acid [Augmentin] Allergy (Unknown, Verified 06/15/24 12:29) Anaphylaxis Self Adherent Wrap Adverse Reaction (Unknown, Uncoded 06/15/24 12:29) Hives to area Medication List - Last Reconciled 06/15/24 by STEPHY Landin- albuterol sulfate 90 mcg/actuation 2 puffs inhalation Q6H PRN 30 days albuterol sulfate 2.5 mg (3 mL) inhalation Q4-6H PRN 30 days ascorbate calcium (vitamin C) 500 mg PO DAILY bisacodyl (Dulcolax (bisacodyl)) 20 mg (4 x 5 mg) PO ONCE PRN 1 day bupropion HCl XL (Wellbutrin XL) 150 mg PO QAM buspirone 10 mg PO BID 90 days carica papaya tabs PO DAILY cholecalciferol (vitamin D3) 10 mcg PO DAILY fluticasone propion-salmeterol 230-21 mcg/actuation (Advair HFA) 2 puffs inhalation BID ipratropium-albuterol 0.5 mg-3 mg(2.5 mg base)/3 mL 3 mL inhalation Q12H PRN 30 days levocetirizine 5 mg PO QPM PRN lorazepam 0.5 mg PO DAILY PRN 30 days multivitamin 1 tab PO DAILY polyethylene glycol 3350 (Miralax) 238 grams PO ONCE PRN 1 day pravastatin 20 mg PO BEDTIME 90 days teriparatide (Forteo) 20 mcg (0.08 mL) subcut DAILY trazodone 50 mg PO BEDTIME PRN vitamin K2 100 mcg PO DAILY Tobacco use date assessed: 01/24/24 Fall risk assessment: No Falls in past year Last assessed Fall Risk: 06/15/24 Dental Screening Dental Screen Date: 01/24/24 HPI Meds Follow Up HPI Details Anxiety: Pt reports doing well overall. She is taking lorazepam prn. Pt is also taking trazodone which helps with insomnia and nightmares. Depression: Pt reports ongoing depression. She is interested in starting wellbutrin for this, will send. Pt will contact me via portal with any questions or concerns. Denies any SI and HI. PFSH Medical History COPD (chronic obstructive pulmonary disease) Eosinophilia Cough Microhematuria Surgical History Hx of colonoscopy History of surgery Family History Mother No known health problems Father No known health problems Social History Household Members: None Housing: House Patient Tobacco Use Status: Former Tobacco user Years Smoked: 20 years e-Cigarette/Vaping Use: Never Used Current occupational status: retired Cognitive needs: No Hearing needs: No Vision needs: No Questionnaire PHQ-9 Over the last 2 weeks, how often have you been bothered by any of the following problems? 1. Little interest or pleasure in doing things: more than half the days 2. Feeling down, depressed, or hopeless: several days 3. Trouble falling or staying asleep, or sleeping too much: not at all 4. Feeling tired or having little energy: more than half the days 5. Poor appetite or overeating: nearly every day 6. Feeling bad about yourself - or that you are a failure or have let yourself or your family down: not at all 7. Trouble concentrating on things, such as reading the newspaper or watching television: several days 8. Moving or speaking so slowly that other people could have noticed. Or the opposite - being so fidgety or restless that you have been moving around a lot more than usual: not at all 9. Thoughts that you would be better off or of hurting yourself in some way: not at all Total score: 9 Depression Screening Interpretation: Negative Depression Screening Done: Yes 95319 - PHQ-9 Billing: Yes Source: Developed by Drs. Farooq Griffin, Ruth Hi, Matheus Mckinley and colleagues, with an educational jhon from [employer]. Thrive Questionnaire Date Thrive assessed: 06/15/24 I am a: Patient What is your living situation today?: I choose not to answer this question Within the past 12 months, did the food you bought not last and you didn't have the money to get more?: I choose not to answer this question Within the past 12 months, did you worry whether your food would run out before you got money to buy more?: I choose not to answer this question Do you have trouble paying for medicines?: I choose not to answer this question Do you have trouble getting transportation to medical appointments?: No Do you have trouble paying your heating and electricity bill?: I choose not to answer this question Do you have trouble taking care of your child, family member or friend?: I choose not to answer this question Do you have trouble with day-to-day activities such as bathing, preparing meals, shopping, managing finances, etc.?: I choose not to answer this question Are you currently unemployed and looking for a job?: I choose not to answer this question Are you interested in more education?: I choose not to answer this question Please select the resources that you would like help with: None Currently or been in a relationship where the following occur: I choose not to answer THRIVE Score: 0 AUDIT C Alcohol Use Questionnaire (AUDIT-C) 1. How often do you have a drink containing alcohol?: 2-4 times a month 2. How many drinks containing alcohol do you have on a typical day when you are drinking?: 1 or 2 3. How often do you have six or more drinks on one occasion?: Never Total Score: 2 Score Reviewed/Action Taken: Yes NI-7 AMB Questionnaire NI-7 Date NI - 7 assessed: 06/15/24 Feeling nervous, anxious, or on edge: 1 = Several days Not being able to stop or control worryin = Several days Worrying too much about different things: 1 = Several days Trouble relaxin = Several days Being so restless that it is hard to sit still: 0 = Not at all Becoming easily annoyed or irritable: 0 = Not at all Feeling afraid as if something awful might happen: 0 = Not at all Total NI-7 score (0-4 normal; 5-9 mild; 10-14 moderate; 15-21 severe): 4 Source: Developed by Drs. Farooq Griffin, Ruth Hi, Matheus Mckinley and colleagues, with an educational jhon from [employer]. NI-7 Assessment Billing NI-7 Assessment Tool: NI-7 Assessment 14307 Review of Systems Const Reports as per HPI Physical exam (Primary Care) Vital Signs: Last Vital Signs Pulse 74 06/15/24 11:37 BP 118/66 06/15/24 11:37 Pulse Ox 97 06/15/24 11:37 Oxygen Delivery Method Room Air 06/15/24 11:37 BMI result Body Mass Index 19.1 Tobacco/Smoking Status: Tobacco use Status Tobacco use date assessed 01/24/24 06/15/24 11:39 Patient Tobacco Use Status Former Tobacco user 06/15/24 11:39 e-Cigarette/Vaping Use Never Used 06/15/24 11:39 PHQ-9: PHQ-9 Score PHQ-9: Total score 9 06/15/24 11:39 Depression Screening Interpretation: Negative Thrive Assessment: Date of Thrive Assessment Date Thrive assessed 06/15/24 06/15/24 11:39 Currently or been in a relationship where the following occur: I choose not to answer Const General: cooperative Orientation/consciousness: patient oriented x3 Resp Effort & Inspection: normal respiratory effort Auscultation: clear to auscultation bilaterally and diminished lung sounds Cardio Rate: regular rate Rhythm: regular rhythm Heart sounds: S1 normal heart sound present and S2 normal heart sound present Neuro General: patient oriented x3 Psych Appearance: grossly normal Mental Status: mental status grossly normal Speech and movement: Normal speech and movement present Affect: normal affect Attitude: cooperative Thought process: Normal thought process present Thought content: Normal thought content present Insight: Good insight present (Psych) Judgement: Good judgement present (Psych) Assessment and Plan Assessment & Plan (1) Anxiety: Code(s): F41.9 - Anxiety disorder, unspecified Plan: prn ativan/trazodone (2) Depression: Code(s): F32.A - Depression, unspecified Plan: starting wellbutrin. (3) Night terrors: Code(s): F51.4 - Sleep terrors [night terrors] Plan: trazodone for sleep/night terrors Plan The patient agreed to the use of a neuropsychology medical consultant for this encounter. Scribed for HARSHA Ken by Nenita Brown neuropsychology medical consultant, on 06/15/2024 at 11:50 EST. Medications: New bupropion HCl XL (Wellbutrin XL) 150 mg PO QAM 30 tabs 3RF Coding Level of Care Code Est Pt Level 3 (53425) Diagnoses Anxiety F41.9 Depression F32.A Night terrors F51.4 Additional Codes NI-7 Assessment Billing - NI-7 Assessment Tool: NI-7 Assessment 84092 ([id number])
== END 2024-06-15 13:03 | disposition home or self-care (01) ==
PROVIDERS: PCP Nurse Practitioner Family; Visit Provider Nurse Practitioner Family
DX: F41.9 Anxiety disorder, unspecified (principal); F32.A Depression, unspecified; F51.4 Sleep terrors [night terrors]
CPT/HCPCS: 96127; 99213

== ENCOUNTER 2024-07-03 15:45 | Outpatient (AMB) | payer MEDICARE, SELFPAY ==
[2024-07-03 15:49] VITALS: BP 130/58; PULSE 101; O2SAT 95; BMI 18.9
--- NOTE | 2024-07-03 15:49 | MHC.OFFVIS ---
Vital Signs 07/03/24 15:49 Height 5 ft 3 in Weight 106 lb 14.787 oz BMI 18.9 BP 130/58 L Blood Pressure Location Lt brachial Position Sitting Pulse 101 H Pulse Source Pulse Oximeter Pulse Oximetry (%) 95 Oxygen Delivery Method Room Air Intake Visit Reasons: productive cough Intake Note: pt is here for follow up and states she is feeling pretty good. Medical Billing Specialist Required: No Allergies amoxicillin [Augmentin] Allergy (Unknown, Verified 07/03/24 15:58) Anaphylaxis, diarrhea clavulanic acid [Augmentin] Allergy (Unknown, Verified 07/03/24 15:58) Anaphylaxis Self Adherent Wrap Adverse Reaction (Unknown, Uncoded 07/03/24 15:58) Hives to area Medication List - Last Reconciled 07/03/24 by Virgil Vital MD albuterol sulfate 90 mcg/actuation 2 puffs inhalation Q6H PRN 30 days albuterol sulfate 2.5 mg (3 mL) inhalation Q4-6H PRN ascorbate calcium (vitamin C) 500 mg PO DAILY bisacodyl (Dulcolax (bisacodyl)) 20 mg (4 x 5 mg) PO ONCE PRN 1 day bupropion HCl XL (Wellbutrin XL) 150 mg PO QAM buspirone 10 mg PO BID 90 days carica papaya tabs PO DAILY cholecalciferol (vitamin D3) 10 mcg PO DAILY fluticasone propion-salmeterol 230-21 mcg/actuation (Advair HFA) 2 puffs inhalation BID ipratropium-albuterol 0.5 mg-3 mg(2.5 mg base)/3 mL 3 mL inhalation Q12H PRN 30 days levocetirizine 5 mg PO QPM PRN lorazepam 0.5 mg PO DAILY PRN 30 days multivitamin 1 tab PO DAILY polyethylene glycol 3350 (Miralax) 238 grams PO ONCE PRN 1 day pravastatin 20 mg PO BEDTIME 90 days teriparatide (Forteo) 20 mcg (0.08 mL) subcut DAILY trazodone 50 mg PO BEDTIME PRN vitamin K2 100 mcg PO DAILY Do you need a note to return to daycare/school/sports/work: No HPI HPI productive cough: Details: 73 years old female is here after almost 1 year, because her asthma symptoms are getting worse. She is starting to have increased bouts of cough and wheezing. She always gets somewhat worse in the late summer and fall. Her Advair has been changed from discussed to the HFA and she thinks she is not getting enough steroids. She ends up using lot of albuterol solution in the nebulizer or Ventolin. She also has ipratropium-albuterol solution which she uses when things are really worse. When she has acute episodes the only thing which helps her is a short course of prednisone. FORMERLY [facility], [facility]1983 Medical History COPD (chronic obstructive pulmonary disease) Eosinophilia Cough Microhematuria Surgical History Hx of colonoscopy History of surgery Family History Mother No known health problems Father No known health problems Social History Household Members: None Housing: House Patient Tobacco Use Status: Former Tobacco user Years Smoked: 20 years e-Cigarette/Vaping Use: Never Used Current occupational status: retired Cognitive needs: No Hearing needs: No Vision needs: No Review of Systems Const All systems reviewed & are unremarkable except as noted in HPI and below Eyes Reports no additional complaints ENT Reports nasal congestion (Mild intermittent) Card Denies irregular heart rhythm and Denies leg edema Resp Reports as per HPI GI Reports no additional complaints Reports no additional complaints Musc Reports no additional complaints Skin/Breast Reports system reviewed and no additional complaints, except as documented Neuro Reports no additional complaints Psych Reports no additional complaints Endo Reports no additional complaints Ayaan/Lymph Reports no additional complaints Physical Exam Vital Signs: Last Vital Signs Pulse 101 H 07/03/24 15:49 BP 130/58 L 07/03/24 15:49 Pulse Ox 95 07/03/24 15:49 Oxygen Delivery Method Room Air 07/03/24 15:49 BMI result Body Mass Index 18.9 Const General: healthy appearing, comfortable, no acute distress, alert and awake Orientation/consciousness: patient oriented x3 HEENT Head: Yes normal to inspection General nose exam: No nasal polyps present, No nasal discharge present and Other nasal findings present (Mild nasal congestion) Face and sinus: Yes sinuses nontender Mouth: oropharynx normal Throat: Yes posterior oropharynx normal Eyes General: appearance normal, both eyes and all related structures Neck Neck: Yes normal visual inspection, Yes no lymphadenopathy, Yes trachea midline and Yes no JVD Thyroid: Thyroid normal Chest Chest palpation & inspection: normal inspection of the chest, normal palpation of entire chest wall and no tenderness Resp Other: Percussion note hyper resonant . Breath sounds are slightly distant with prolonged expiratory phase No wheezes or crepitations are heard. But she does get cough on taking a deep breath. Cardio Palpation: normal PMI Rate: regular rate Rhythm: regular rhythm Heart sounds: no gallops and no murmurs Peripheral pulses: Peripheral pulses 2+ throughout GI Palpation (GI): Soft to palpation, nontender, No hepatosplenomegaly present and no masses Auscultation: normal bowel sounds Back/Spine/Pelvis Thoracic/Lumbar Spine: thoracic and lumbar spine normal to inspection Skin General skin exam: no rashes or lesions noted Neuro General: patient oriented x3 and no focal motor deficits Cranial nerves: Yes CN's II-XII intact bilaterally Extrem General: Yes normal to inspection, Yes no clubbing, cyanosis or edema and Yes no calf tenderness Psych Speech and movement: Normal speech and movement present Assessment & Plan Assessment & Plan (1) COPD (chronic obstructive pulmonary disease): Comment: Patient has past history of smoking. Chest x-ray shows hyperinflated lung/pulmonary emphysema. PFT, C/W obstructive airway disorder, severe. Code(s): J44.9 - Chronic obstructive pulmonary disease, unspecified Category: Medical Plan: [place] : Continue using Advair HFA 230-21 2 puffs b.i.d.. Ipratropium-albuterol inhalation solution to be used in the nebulizer Q 6 hours p.r.n. Albuterol HFA 2 puffs Q 4-6 hours p.r.n.. Also has albuterol solution , which she uses p.r.n. for acute spells. I try to clarify the way she should use , do not use albuterol solution in the nebulizer as well as Ventolin inhaler at the same time or within a few hours. Use Ventolin 2 puffs Q 4-6 hours p.r.n. but only outdoors. Prednisone 20 mg b.i.d., 10 tablets prescribed for emergency use. (2) Asthma: Comment: Chronic allergic bronchial asthma. Mostly presenting in the form of cough. Relatively controlled at this time. Code(s): J45.909 - Unspecified asthma, uncomplicated Category: Medical Plan: [place] : As under COPD. (3) Eosinophilia: Comment: She does have high eosinophil count, this may go along with her chronic allergies. IgE level Normal . Code(s): D72.10 - Eosinophilia, unspecified Category: Medical Plan: Discussed 0 with her about the use of biologic treatments. Her symptoms are relatively controlled with current medical regimen and she would not like to go to the use of biologic treatment. Medications: New prednisone 20 mg PO BID 5 days 10 tabs 1RF asthma excerbation Coding Level of Care Code Est Pt Level 4 (68073) Diagnoses COPD (chronic obstructive pulmonary disease) J44.9 Asthma J45.909 Eosinophilia D72.10
== END 2024-07-03 16:12 | disposition home or self-care (01) ==
PROVIDERS: PCP Nurse Practitioner Family; Visit Provider Internal Medicine
DX: J44.9 Chronic obstructive pulmonary disease, unspecified (principal); J45.909 Unspecified asthma, uncomplicated; D72.10 Eosinophilia, unspecified
CPT/HCPCS: 99214

== ENCOUNTER → 2024-07-03 15:45 | Outpatient (BNVA) | payer MEDICARE, SELFPAY | PROVIDERS: PCP Nurse Practitioner Family; Visit Provider Internal Medicine | DX: J44.9 Chronic obstructive pulmonary disease, unspecified (principal); D72.10 Eosinophilia, unspecified | CPT/HCPCS: 99212 ==

== ENCOUNTER 2024-07-17 10:19 | Day surgery (SDC) | payer MEDICARE, SELFPAY ==
[2024-07-10 09:52] VITALS: BMI 19.0
--- NOTE | 2024-07-14 08:15 | HO.ANESPROP2 ---
Documented by User: Nissa Hernandez NP 07/14/24 08:15 HPI - Anesthesia Eval Consult details Narrative: 73yo F for Colonoscopy Anesthesia Pre-Procedure Meds Is the patient on any of the following meds?: GLP1/DPP4 PMFSH Active Problems Active Problems: All Active Problems Depression (Acute) Panic attacks (Acute) Diverticulosis of colon (Acute) Anorexia (Acute) Nausea (Acute) Tubular adenoma (Acute) Tubulovillous adenoma (Acute) Anxiety (Acute) Complex renal cyst (Acute) Screening for colon cancer (Acute) Positive colorectal cancer screening using Cologuard test (Acute) Encounter for subsequent annual wellness visit (AWV) in Medicare patient (Acute) Cough (Acute) Pre-op evaluation (Acute) Asthma (Acute) Night terrors (Acute) Insomnia (Acute) Abnormal urine cytology (Acute) Microhematuria (Acute) Weight loss (Acute) Osteoporosis (Acute) Encounter for annual wellness visit (AWV) in Medicare patient (Acute) Skin lesions (Acute) Postmenopausal (Acute) Dyslipidemia (Acute) COPD (chronic obstructive pulmonary disease) (Acute) Eosinophilia (Acute) Microhematuria (Acute) Past Medical History Medical History (Updated 07/10/24 @ 09:47 by Mariaelena Coretz RN) Glaucoma Dyslipidemia Osteoporosis Decreased appetite Panic attacks Anxiety Asthma COPD (chronic obstructive pulmonary disease) Eosinophilia Microhematuria Family History Family History Mother No known health problems Father No known health problems Family history of problems with anesthesia: No Surgical History Surgical History (Updated 07/10/24 @ 09:47 by Mariaelena Cortez RN) Hx of eye surgery Hx of cataract extraction History of surgery on right wrist Hx of colonoscopy History of Problems with Anesthesia: No Social History Social History Household Members: None Housing: House Housing Other:: private upper level of family home Are you a primary direct care worker to a significant other at home: No Do you presently have visiting nurse or other home services: No Patient Tobacco Use Status: Former Tobacco user Tobacco use type: Cigarette Years Smoked: 10 e-Cigarette/Vaping Use: Never Used Use of substances other than those prescribed or required for medical reasons: No Have you been hit, kicked, punched, or otherwise hurt by someone within the past year? If so, by whom?: No Are you DNR?: No Advance Directives Information Provided: Yes (as above noted) Advance Directives on File: No Recently lost weight without trying: No Eating poorly because of decreased appetite: No Nutrition Risks: No Nutritional Risk Poor oral hygiene: No Current occupational status: retired Cognitive needs: No Hearing needs: No Vision needs: No Meds Allergies Allergy/AdvReac Type Severity Reaction Status Date / Time amoxicillin [Augmentin] Allergy Severe Anaphylaxis Verified 07/10/24 09:48 clavulanic acid [Augmentin] Allergy Severe Anaphylaxis Verified 07/10/24 09:48 Self Adherent Wrap AdvReac Intermediate Hives to Uncoded 07/10/24 09:48 area Home Medications ?Medication ?Instructions ?Recorded ?Confirmed ?Last Taken ?Type ascorbate calcium (vitamin C) 500 500 mg PO DAILY 07/31/21 07/10/24 Unknown History mg tablet vitamin K2 100 mcg capsule 100 mcg PO DAILY 07/31/21 07/10/24 Unknown History cholecalciferol (vitamin D3) 10 10 mcg PO DAILY 01/24/24 07/10/24 Unknown History mcg (400 unit) capsule multivitamin 1 tab PO DAILY 01/24/24 07/10/24 Unknown History dorzolamide 2 % eye drops 1 drp Q12H 07/10/24 07/10/24 Unknown History ketorolac 0.5 % eye drops 1 drp TID 07/10/24 07/10/24 Unknown History prednisolone acetate 1 % eye 1 drp QID 07/10/24 07/10/24 Unknown History drops,suspension prednisone 20 mg tablet 20 mg PO BID PRN asthma excerbation 07/10/24 07/10/24 Unknown History Exam Height,Weight and Vital Signs: Height 5 ft 3 in Weight 48.534 kg Assessment and Plan Assessment Anesthesia Assessment: Chart Reviewed Final Anesthetic Review Family History of Problems with Anesthesia: No History of Problems with Anesthesia: No Documented by User: Maday Herrera MD 07/17/24 10:51 [facility] Past Medical History Medical History (Updated 07/10/24 @ 09:47 by Mariaelena Cortez, RIMA) Glaucoma Dyslipidemia Osteoporosis Decreased appetite Panic attacks Anxiety Asthma COPD (chronic obstructive pulmonary disease) Eosinophilia Microhematuria Family History Family History Mother No known health problems Father No known health problems Surgical History Surgical History (Updated 07/10/24 @ 09:47 by Mariaelena Cortez RN) Hx of eye surgery Hx of cataract extraction History of surgery on right wrist Hx of colonoscopy Social History Social History Household Members: None Housing: House Housing Other:: private upper level of family home Are you a primary direct care worker to a significant other at home: No Do you presently have visiting nurse or other home services: No Patient Tobacco Use Status: Former Tobacco user Tobacco use type: Cigarette Years Smoked: 10 e-Cigarette/Vaping Use: Never Used Use of substances other than those prescribed or required for medical reasons: No Have you been hit, kicked, punched, or otherwise hurt by someone within the past year? If so, by whom?: No Are you DNR?: No Advance Directives Information Provided: Yes (as above noted) Advance Directives on File: No Recently lost weight without trying: No Eating poorly because of decreased appetite: No Nutrition Risks: No Nutritional Risk Poor oral hygiene: No Current occupational status: retired Cognitive needs: No Hearing needs: No Vision needs: No Meds Allergies Allergy/AdvReac Type Severity Reaction Status Date / Time amoxicillin [Augmentin] Allergy Severe Anaphylaxis Verified 07/10/24 09:48 clavulanic acid [Augmentin] Allergy Severe Anaphylaxis Verified 07/10/24 09:48 Self Adherent Wrap AdvReac Intermediate Hives to Uncoded 07/10/24 09:48 area Home Medications ?Medication ?Instructions ?Recorded ?Confirmed ?Last Taken ?Type ascorbate calcium (vitamin C) 500 500 mg PO DAILY 07/31/21 07/10/24 Unknown History mg tablet vitamin K2 100 mcg capsule 100 mcg PO DAILY 07/31/21 07/10/24 Unknown History cholecalciferol (vitamin D3) 10 10 mcg PO DAILY 01/24/24 07/10/24 Unknown History mcg (400 unit) capsule multivitamin 1 tab PO DAILY 01/24/24 07/10/24 Unknown History dorzolamide 2 % eye drops 1 drp Q12H 07/10/24 07/10/24 Unknown History ketorolac 0.5 % eye drops 1 drp TID 07/10/24 07/10/24 Unknown History prednisolone acetate 1 % eye 1 drp QID 07/10/24 07/10/24 Unknown History drops,suspension prednisone 20 mg tablet 20 mg PO BID PRN asthma excerbation 07/10/24 07/10/24 Unknown History Exam Airway Mallampati Class: II TM Dist: >3cm Neck ROM: Full Heart: rrr Lungs: crackles at bases Assessment and Plan Assessment Anesthesia Assessment: Anesthesia Plan Discussed Final Anesthetic Review NPO: Yes ASA Class: III Final Preanesthetic Review: No Changes in Pt Med Stat, Meds/Allgs Chart Reviewed and Consent Obtained/Reviewed Patient Risk: Low Procedure Risk: Low Anesthetic Plan Anesthetic Plan: MAC: Disposition: Standard PACU
--- OUTSIDE RECORDS SUMMARY | 2024-07-17 10:21 | XMS_ITS | Continuity of Care Document ---
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 Start Date: 03/05/22 Status: Ordered amitriptyline 10 mg oral tablet TAKE ONE TABLET BY MOUTH AT BEDTIME FOR DEPRESSION/FIBRO Start Date: 03/05/22 Status: Ordered azelaic acid 15% topical gel APPLY TO THE FACE TWICE DAILY Start Date: 03/05/22 Status: Ordered levocetirizine 5 mg oral tablet 1 tablet = 5 mg, By Mouth, Daily in PM, # 90 tablet, 0 Refills, Maintenance, 03/05/22 12:38:00 EDT,Tablet, Partial fill upon patient request if the prescription is for a schedule II opioid drug. Start Date: 03/05/22 Status: Ordered nitrofurantoin macrocrystals 100 mg oral capsule TAKE ONE CAPSULE BY MOUTH TWICE A DAY FOR 5 DAYS WITH FOOD Start Date: 03/05/22 Status: Ordered pravastatin 20 mg oral tablet 20 mg, 1, tablet, By Mouth, Daily, # 90 tablet, Refills 0, Maintenance, 03/05/22 12:38:00 EDT, Partial fill upon patient request if the prescription is for a schedule II opioid drug. Start Date: 03/05/22 Status: Ordered prazosin 1 mg oral capsule 1 mg, 1, capsule, By Mouth, 2 times a day, Refills 0, Maintenance, 03/05/22 12:39:00 EDT, Partial fill upon patient request if the prescription is for a schedule II opioid drug. Start Date: 03/05/22 Status: Ordered sulfamethoxazole-trimethoprim 800 mg-160 mg oral tablet 1 tablet, By Mouth, 2 times a day, 0 Refills, Maintenance, 03/05/22 12:38:00 EDT, Tablet, Partial fill upon patient request if the prescription is for a schedule II opioid drug. Start Date: 03/05/22 Status: Ordered Social History Social History Type Response Sex Female Care Team Personnel Name: Juancho Fitzgerald NP Address: [address] [place] [id number]
--- OUTSIDE RECORDS SUMMARY | 2024-07-17 10:21 | XMS_ITS | Continuity of Care Document ---
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 Start Date: 03/05/22 Status: Ordered teriparatide 600 mcg/2.4 mL subcutaneous device = 20 mcg, Subcutaneous Injection, Daily, # 1 each, 11 Refills, Maintenance, 07/06/22 15:16:00 EDT, Solution, [facility], Partial fill upon patient request if the prescription is for a schedule II opioid drug., 162, cm, 03/05/22 12:38:... Start Date: 07/06/22 Stop Date: 07/01/23 Status: Ordered Social History Social History Type Response Sex Female Patient Care team information Personnel Name: iLa CHERY , Juancho Avery Address: Address: [address] [place] [id number]
--- OUTSIDE RECORDS SUMMARY | 2024-07-17 10:21 | XMS_ITS | Continuity of Care Document ---
Author Organization [facility] Address [address] [place] [address]- Care Team Providers Care Lab Asst Name Role Phone Lia CHERY, Juancho Avery Primary Care Physician [phone] [place] [facility] [place]07[place]22 - 09/06/22 [facility] [address] [place] [id number] Medications Advair Diskus 500 [...] WITH FOOD Start Date: 03/05/22 Status: Ordered Pen [place], 31 G x 5 mm BD Ultra Fine III See Instructions, # 100 each, Refills 3, Tot. Refills 3, Maintenance, use as directed to administersubcutaneous forteo injection daily, 90 day supply, 08/07/22 15:49:00 EDT, Supply, 162, cm, 03/05/22 12:38:00 EDT, Height Start Date: 08/07/22 Status: Ordered pravastatin 20 mg oral tablet [...] 11 Refills, Maintenance, 07/06/22 15:16:00 EDT, Solution, [facility], Partial fill upon patient request if the prescription is for a schedule II opioid drug., 162, cm, 03/05/22 12:38:... Start Date: 07/06/22 Stop Date: 07/01/23 Status: Ordered Social History Social History Type Response Sex Female Patient Care team information Care Team Personnel Name: Juancho Fitzgerald NP Position: Reference Physician Member Role: PCP Address: Address: [address] [place] [id number]
--- OUTSIDE RECORDS SUMMARY | 2024-07-17 10:21 | XMS_ITS | Continuity of Care Document ---
Author Organization [facility] Address [address] [place] [address]- Care Team Providers Care Emt Basic Name Role Phone Lia CHERY, Juancho Avery Primary Care Physician [place] [facility] [place]22 [facility] [address] [place] [id number] Attending Physician: Gail Gupta Admitting Physician: Gail Gupta Referring Physician: Gail Gupta Medications Advair Diskus 500 mcg-50 mcg inhalation [...]
--- OUTSIDE RECORDS SUMMARY | 2024-07-17 10:21 | XMS_ITS | Continuity of Care Document ---
Author Organization [facility] Address [address] [place] [address]- Care Team Providers Care Crisis Counselor Name Role Phone Lia CHERY, Juancho Avery Primary Care Physician Encounter [facility] Date(s): 12/09/21 - 01/08/22 [facility] [address] [place] [id number] Social History Social History Type Response Sex Female
--- OUTSIDE RECORDS SUMMARY | 2024-07-17 10:21 | XMS_ITS | Continuity of Care Document ---
Author Organization [facility] Address [address] [place] [address]- Care Team Providers Care [place] [employer] Group Leader Name Role Phone Lia CHERY, Juancho Avery Primary Care Physician [phone] [place] [facility] [place] 08[place]07[place]22 - 09/06/22 [facility] [address] [place] [id number] Medications Advair Diskus 500 mcg-50 mcg [...] FOOD Start Date: 03/05/22 Status: Ordered Pen [place], 31 G x 5 mm BD Ultra [...] 11 Refills, Maintenance, 07/06/22 15:16:00 EDT, Solution, [facility], Partial fill upon patient request if the prescription is for a schedule II opioid drug., 162, cm, 03/05/22 12:38:... Start Date: 07/06/22 Stop Date: 07/01/23 Status: Ordered Social History Social History Type Response Sex Female Patient Care team information Care Team Personnel Name: Juancho Fitzgerald NP Position: Reference Physician Member Role: PCP Address: Address: [address] [place] [id number]
[2024-07-17 10:28] VITALS: BMI 19.0
[2024-07-17 10:35] VITALS: BP 123/64; PULSE 80; RESP 16; TEMP 36.2; O2SAT 95
[2024-07-17] MEDS: Lactated Ringers 1,000 ML 100 ML IVCONT (10:49)
--- NOTE | 2024-07-17 10:50 | MHC.SHP ---
Pre-Procedural Eval Section A - 24 Hr Update-Section A only Date of Service: 07/17/24 The patient is an INPATIENT: No The patient has been examined within 24 hours of the surgical procedure. The History & Physical has been completed within 30 days and I have reviewed it.: No Section B - Complete if H&P > 30 days Chief Complaint: Surveillance for colon polyps Relevant Family History (Specify if Yes): No Relevant Social History: Tobacco Use (Former smoker) Present Medications: see Short Stay Collaborative assessment Medical History: Significant History (COPD (chronic obstructive pulmonary disease) Eosinophilia Cough Microhematuria) History of Previous Operations: Relevant previous surgery/procedure and date(s) (History of right wrist surgery) Allergies: Allergies Allergy/AdvReac Type Severity Reaction Status Date / Time amoxicillin [Augmentin] Allergy Severe Anaphylaxis Verified 07/10/24 09:48 clavulanic acid [Augmentin] Allergy Severe Anaphylaxis Verified 07/10/24 09:48 Self Adherent Wrap AdvReac Intermediate Hives to Uncoded 07/10/24 09:48 area Review of Systems Sugical H&P ROS: Negative: Constitution, Cardiovascular and Respiratory and Yes, Specify: Gastrointestinal (wt loss, decreased appetite) Exam Surgical H&P Exam: Normal: Heart, Normal: Lungs, Normal: Extremities and Normal: Abdomen Plan Diagnosis/Plan: Unchanged (pt scheduled for an EGD and colon. EGD was not performed since pt stated it was not approved by her insurance) I have reviewed the history and physical and performed a pertinent physical examination on my patient. No changes have occurred unless specified. Time Spent With Patient Time: Total time managing care of this patient today ____ minutes.
[2024-07-17 11:47] VITALS: BP 101/49; PULSE 68; RESP 16; TEMP 36.2; O2SAT 97
--- NOTE | 2024-07-17 11:48 | P.OPN-COLO_ITS ---
Colonoscopy Operative Note Operative Note Date of Service: 07/17/24 Narrative: COLONOSCOPY TILL CECUM WITH SNARE POLYPECTOMY, SUBMUCOSAL INJECTION AND HEMOCLIP PLACEMENT Pre-op diagnosis: Surveillance for colon polyps. Post-op diagnosis:? Colon polyps, Diverticulosis Endoscopist:? Nataly Hassan MD Anesthesia:?MAC Consent: Indications for the procedure and potential complications of bleeding, perforation, reaction to medications and missed diagnosis were discussed with the patient and informed consent was obtained. Instrument: Olympus PCF H 190 L variable stiffness pediatric colonoscope Monitoring: Vital signs and clinical assessment, intermittent blood pressure monitoring, continuous EKG monitoring, Pulse oximetry and Carbon Dioxide monitoring were done throughout the procedure. Please see anesthesia flowsheet. Colon withdrawl time was 32 minutes. Procedure: The patient was placed in the left lateral decubitis position and pre-procedure medications were administered. After a digital rectal examination of the ano-rectum, the video colonoscope was inserted into the rectum and advanced through the colon to the cecum. The colonoscope was slowly withdrawn in a retrograde panoramic fashion and the colon mucosa was carefully examined including a retroflexed view of the rectum. Findings and interventions are described below. Procedure Difficulty: without difficulty Findings: Terminal Ileum: Not evaluated Cecum: Normal Ascending Colon: Two 5 to 8 mm sessile polyp - removed with a cold and a hot snare and polyps were not retrieved. A 2 cms flat polyp at 65 cms (behind a fold). Polyp was raised with 5 cc of Eleview and removed with a stiff hot snare. Polypectomy site was closed with 1 hemoclip and marked with Krystal ink. A 2 cms flat polyp in the distal A.C at 55 cms. Polyp was raised with 3 cc of Eleview and removed with a stiff hot snare. Polypectomy site was closed with 1 hemoclip. A 4-5 mm sessile polyp in the distal AC at 55 cms - removed with a cold snare. Polypectomy site at 60 cms was examined and a 4-5 mm nodule (?polyp versus edematous fold) and ablated with a hot snare. Transverse Colon: Normal Descending Colon: Moderate diverticulosis Sigmoid Colon: Severe diverticulosis with luminal narrowing Rectum: Normal Ano-rectum: Normal Colon preparation: Good after copious irrigation. [place] Bowel Preparation Scale Right colon; 2 Transverse colon: 2 Left colon; 2 (0 = Unprepared colon segment with mucosa not seen due to solid stool that cannot be cleared. 1 = Portion of mucosa of the colon segment seen, but other areas of the colon segment not well seen due to staining, residual stool and/or opaque liquid. 2 = Minor amount of residual staining, small fragments of stool and/or opaque liquid, but mucosa of colon segment seen well. 3 = Entire mucosa of colon segment seen well with no residual staining, small fragments of stool or opaque liquid) Impression and Post Procedure Diagnosis: Colonoscopy Findings: Three small and two medium sized polyps were removed Moderate to severe diverticulosis seen in the left colon Plan: I will send a letter with biopsy results. Pt has a FU appointment on 10/17/24 with DINA Long Repeat Colonoscopy in 2 years if polyps are adenomatous and due to history of adenomatous polyps. Above findings were reviewed with the patient and relevant handouts were given and the discharge area. BIOPSIES SHOWED: A. Colon, ascending, polypectomy: Tubular adenoma; negative for high-grade dysplasia. B. Colon, distal ascending, polypectomy: Tubular adenoma; negative for high- grade dysplasia Letter sent to the patient advising repeat colonoscopy in 2 years. Patient placed on the colonoscopy recall list.
[2024-07-17 12:02] VITALS: BP 105/56; PULSE 62; RESP 16; TEMP 36.2; O2SAT 98
== END 2024-07-17 12:27 | disposition home or self-care (01) ==
PROVIDERS: PCP Nurse Practitioner Family; Visit Provider Internal Medicine Gastroenterology
PROC: 0DJD8ZZ Inspection of Lower Intestinal Tract, Via Natural or Artificial Opening Endoscopic (ICD-10-PCS; CPT 45378; principal; 2024-07-17 12:00)
DX: Z12.11 Encounter for screening for malignant neoplasm of colon (principal); Z86.010 Personal history of colon polyps; D12.2 Benign neoplasm of ascending colon; K57.30 Diverticulosis of large intestine without perforation or abscess without bleeding; K64.8 Other hemorrhoids; J44.9 Chronic obstructive pulmonary disease, unspecified; F41.9 Anxiety disorder, unspecified; L23.1 Allergic contact dermatitis due to adhesives; Z79.51 Long term (current) use of inhaled steroids; Z79.899 Other long term (current) drug therapy; Z88.1 Allergy status to other antibiotic agents; Z87.891 Personal history of nicotine dependence
CPT/HCPCS: 45385; 45381; 88305; J2704

== ENCOUNTER → 2024-07-17 10:19 | Outpatient (BNV) | payer MEDICARE, SELFPAY | PROVIDERS: PCP Nurse Practitioner Family; Visit Provider Internal Medicine Gastroenterology | DX: Z12.11 Encounter for screening for malignant neoplasm of colon (principal); Z86.010 Personal history of colon polyps; D12.2 Benign neoplasm of ascending colon; K57.90 Diverticulosis of intestine, part unspecified, without perforation or abscess without bleeding | CPT/HCPCS: 45381; 45385 ==

== ENCOUNTER 2024-07-30 10:25 | Emergency (ER) | payer MEDICARE, SELFPAY ==
--- NOTE | ~2024-07-30 | XR_ITS ---
EXAMINATION: XR HIP, RIGHT CLINICAL INFORMATION: Fall COMPARISON: None available. TECHNIQUE: Two views of the right hip. FINDINGS: Visualized portion of the proximal right femur demonstrate no fracture. Femoral head is well-seated within the acetabulum. Femoral acetabular joint space is well maintained. Suspected colonic biopsy clips project over the right lower abdomen. XR/XR hip RT w PEL1V IMPRESSION: Unremarkable radiographs of the right hip. Electronically signed by: Satish Underwood MD 07/30/2024 12:46 PM EDT
[2024-07-30 10:46] VITALS: BP 150/82; PULSE 91; RESP 16; TEMP 35.9; O2SAT 95; BMI 18.5
--- NOTE | 2024-07-30 12:55 | ED_ITS ---
HPI - General Adult General Chief complaint: Fall Stated complaint: Fall r leg pain Time Seen by Provider: 07/30/24 11:42 Source: patient Mode of arrival: ambulatory Limitations: no limitations History of Present Illness ED Provider: Armand Riggs HPI narrative: 73-year-old female with past medical history of osteoporosis insomnia, tubular adenoma, panic attacks, diverticulosis, depression, presents to ED for right hip pain after falling hitting right hip. Patient states she fell down 2 stairs and unto right hip yesteday. Patient denies hitting head or loss of consciousness. Patient states no other physical complaints. Related Data Home Medications ?Medication ?Instructions ?Recorded ?Confirmed ascorbate calcium (vitamin C) 500 500 mg PO DAILY 07/31/21 07/10/24 mg tablet vitamin K2 100 mcg capsule 100 mcg PO DAILY 07/31/21 07/10/24 cholecalciferol (vitamin D3) 10 10 mcg PO DAILY 01/24/24 07/10/24 mcg (400 unit) capsule multivitamin 1 tab PO DAILY 01/24/24 07/10/24 dorzolamide 2 % eye drops 1 drp Q12H 07/10/24 07/10/24 ketorolac 0.5 % eye drops 1 drp TID 07/10/24 07/10/24 prednisolone acetate 1 % eye 1 drp QID 07/10/24 07/10/24 drops,suspension prednisone 20 mg tablet 20 mg PO BID PRN asthma excerbation 07/10/24 07/10/24 Previous Rx's ?Medication ?Instructions ?Recorded pravastatin 20 mg tablet 20 mg PO BEDTIME 90 days #90 tabs 11/23/22 ipratropium 0.5 mg-albuterol 3 mg 3 ml inhalation Q12H PRN wheezing 12/29/22 (2.5 mg base)/3 mL nebulization 30 days #90 mL soln teriparatide 20 mcg/dose (600 20 mcg (0.08 mL) subcut DAILY #2.4 03/16/23 mcg/2.4 mL) subcutaneous pen mL injector (Forteo) levocetirizine 5 mg tablet 5 mg PO QPM PRN allergy symptoms 01/12/24 #90 tabs fluticasone propionate 230 2 puff inhalation BID #36 grams 01/14/24 mcg-salmeterol 21 mcg/actuation HFA inhaler (Advair HFA) trazodone 50 mg tablet 50 mg PO BEDTIME PRN sleep #30 tabs 04/18/24 albuterol sulfate 90 mcg/actuation 2 puff inhalation Q6H PRN 06/07/24 aerosol inhaler shortness of breath or wheezing 30 days #8.5 grams bupropion HCl 150 mg 24 hr tablet, 150 mg PO QAM #30 tabs 06/15/24 extended release (Wellbutrin XL) albuterol sulfate 2.5 mg/3 mL 2.5 mg (3 mL) inhalation Q4-6H PRN 06/28/24 (0.083 %) solution for nebulization for wheezing #90 mL lorazepam 0.5 mg tablet 0.5 mg PO DAILY PRN panic 07/24/24 attack(s) 30 days #30 tabs naproxen 500 mg tablet 500 mg PO BID PRN pain 7 days #14 07/30/24 tabs Allergies Allergy/AdvReac Type Severity Reaction Status Date / Time amoxicillin [Augmentin] Allergy Severe Anaphylaxis Verified 07/30/24 10:48 clavulanic acid [Augmentin] Allergy Severe Anaphylaxis Verified 07/30/24 10:48 Self Adherent Wrap AdvReac Intermediate Hives to Uncoded 07/10/24 09:48 area Review of Systems 2 Review of Systems: right hip Yes all other systems are reviewed and are negative [facility] Past Medical History Medical History (Updated 07/30/24 @ 13:09 by DINA Narvaez) Glaucoma Dyslipidemia Osteoporosis Decreased appetite Panic attacks Anxiety Asthma COPD (chronic obstructive pulmonary disease) Eosinophilia Microhematuria Surgical History (Updated 07/10/24 @ 09:47 by Mariaelena Cortez RN) Hx of eye surgery Hx of cataract extraction History of surgery on right wrist Hx of colonoscopy Family History Family History Mother No known health problems Father No known health problems Social History Social History Household Members: None Housing: House Housing Other:: private upper level of family home Are you a primary special needs child caregiver to a significant other at home: No Do you presently have visiting nurse or other home services: No Patient Tobacco Use Status: Former Tobacco user Tobacco use type: Cigarette Years Smoked: 10 e-Cigarette/Vaping Use: Never Used Advance Directives: No Current occupational status: retired Cognitive needs: No Hearing needs: No Vision needs: No Physical Exam ED Vital Signs: Vital Signs - 24 hr 07/30/24 10:46 07/30/24 13:37 07/30/24 13:38 Temperature 96.7 F L 98.1 F 98.1 F Pulse Rate 91 89 89 Respiratory Rate 16 16 16 Blood Pressure 150/82 H 109/65 109/65 Pulse Oximetry 95 96 96 Oxygen Delivery Method Room Air Room Air Room Air BMI result Body Mass Index 18.5 Const General: cooperative, healthy appearing, comfortable, no acute distress, well developed, alert, awake and Physically active Orientation/consciousness: patient oriented x3 [facility] Head: Yes normal to inspection, Yes No palpable skull fracture present, Yes normocephalic, Yes atraumatic and No abrasion Eyes General: appearance normal, both eyes and all related structures Neck Neck: Yes normal visual inspection, Yes full ROM, Yes no lymphadenopathy, Yes no meningeal signs, Yes trachea midline, Yes supple, No anterior neck swelling and No tender Chest Chest palpation & inspection: normal inspection of the chest and normal palpation of entire chest wall Resp Effort & Inspection: normal respiratory effort and able to speak in complete sentences Auscultation: clear to auscultation bilaterally Cardio Jugular venous distension: no JVD Heart sounds: S1 normal heart sound present and S2 normal heart sound present GI Inspection: Yes normal to inspection Palpation (GI): Soft to palpation, not firm, nontender, no guarding and not rigid General: No CVA tenderness and Yes no CVA tenderness Back/Spine/Pelvis Back: no CVA tenderness, No CVA tenderness and No back tenderness Skin General skin exam: no rashes or lesions noted, elasticity normal and turgor normal Neuro General: patient oriented x3, gait normal, tone normal, moves all extremities, Normal light touch and pain sensation, no meningeal signs, no focal motor deficits, CN's II-XI intact bilaterally and normal sensation to monofilament Extrem General: Yes normal to inspection, Yes full ROM, Yes capillary refill normal and Yes normal exam except as noted Upper/lower leg/hip images: 2 1. Positive for tenderness on palpation. Negative for ecchymosis, crepitus, erythema, palpable past, deformity, hotness, coldness, stiffness. Rest of extremity normal. Motor/neuro/vascular exam intact Psych Appearance: grossly normal, well kempt and not disheveled Medical Decision Making Medical Decision Making MDM Narrative: 73-year-old female presents to ED for right hip pain from falling last night. Patient denies any head trauma, chest pain, abdominal pain, rectal bleeding, vomiting blood, coughing up blood, headache, or neck pain. Patient denies any head injury. ONly complaints right hip pain. X-ray negative for fracture. Patient is safe for discharge. Patient explained worrisome signs informed to return to the ED immediately. Whole body evaluated and negative for signs of life threatening injuries. Differential Diagnosis Differential Diagnoses: The differential diagnosis associated with the presentation includes (Hip fracture, hip dislocation,) Admission/Observation Consideration of admission/observation: Escalation of care including admission/observation considered Independent Interpretation I performed an independent interpretation of an: Plain X-Ray Radiology Impression Discussion of test interpretation with radiology: I have reviewed the radiologist's reading. Independent Historian Clinical information obtained from an independent historian. History obtained from or confirmed by: Other (Patient) External Record Review External record reviewed: Other (Prior visits) Prescription Management I considered prescription management with: Pain Medication and Other Discharge Plan Discharge Clinical Impression: Hip joint pain, Fall Patient Disposition: Home, Self-Care Instructions: Fall Prevention for Older Adults (ED), Hip Pain (ED), Warm Compress or Soak (ED) Additional Instructions: Recommend follow-up with the primary care provider. Hip x-ray came back normal. Return to the ED immediately for any hip pain, swelling of lower extremities, bluish discoloration, calf pain, chest pain, shortness breath, headache, neck pain, abdominal pain, or any other concerning symptoms. FINDINGS: Visualized portion of the proximal right femur demonstrate no fracture. Femoral head is well-seated within the acetabulum. Femoral acetabular joint space is well maintained. Suspected colonic biopsy clips project over the right lower abdomen. XR/XR hip RT w PEL1V IMPRESSION: Unremarkable radiographs of the right hip. Electronically signed by: Satish Underwood MD 07/30/2024 12:46 PM EDT Prescriptions: New naproxen 500 mg tablet 500 mg PO BID PRN (Reason: pain) 7 Days Qty: 14 0RF No Action ascorbate calcium (vitamin C) 500 mg tablet 500 mg PO DAILY vitamin K2 100 mcg capsule 100 mcg PO DAILY pravastatin 20 mg tablet 20 mg PO BEDTIME 90 Days Qty: 90 0RF ipratropium-albuterol 0.5 mg-3 mg(2.5 mg base)/3 mL solution for nebulization 3 ml inhalation Q12H PRN (Reason: wheezing) 30 Days Qty: 90 3RF Forteo 20 mcg/dose (600mcg/2.4mL) pen injector 20 mcg subcut DAILY Qty: 2.4 11RF levocetirizine 5 mg tablet 5 mg PO QPM PRN (Reason: allergy symptoms) Qty: 90 1RF fluticasone propion-salmeterol [Advair HFA] 230-21 mcg/actuation HFA aerosol inhaler 2 puff inhalation BID Qty: 36 1RF trazodone 50 mg tablet 50 mg PO BEDTIME PRN (Reason: sleep) Qty: 30 0RF albuterol sulfate 90 mcg/actuation HFA aerosol inhaler 2 puff inhalation Q6H PRN (Reason: shortness of breath or wheezing) 30 Days Qty: 8.5 2RF albuterol sulfate 2.5 mg /3 mL (0.083 %) solution for nebulization 2.5 mg inhalation Q4-6H PRN (Reason: for wheezing) Qty: 90 0RF lorazepam 0.5 mg tablet 0.5 mg PO DAILY PRN (Reason: panic attack(s)) 30 Days Qty: 30 0RF prednisone 20 mg tablet 20 mg PO BID PRN (Reason: asthma excerbation ) ketorolac 0.5 % drops 1 drp TID prednisolone acetate 1 % drops,suspension 1 drp QID dorzolamide 2 % drops 1 drp Q12H cholecalciferol (vitamin D3) 10 mcg (400 unit) capsule 10 mcg PO DAILY multivitamin Tablet 1 tab PO DAILY bupropion HCl [Wellbutrin XL] 150 mg tablet extended release 24 hr 150 mg PO QAM Qty: 30 3RF Interventions: ED Discharge Assessment Last Done: 07/30/24 13:38 Discharge Date/Time: 07/30/24 13:38 Print Language: Venezuelan
[2024-07-30 13:37] VITALS: BP 109/65; PULSE 89; RESP 16; TEMP 36.7; O2SAT 96
[2024-07-30 13:38] VITALS: BP 109/65; PULSE 89; RESP 16; TEMP 36.7; O2SAT 96
== END 2024-07-30 13:38 | disposition home or self-care (01) ==
PROVIDERS: Emergency Provider Emergency Medicine; PCP Nurse Practitioner Family
DX: S79.911A Unspecified injury of right hip, initial encounter (principal); M25.551 Pain in right hip; W10.9XXA Fall (on) (from) unspecified stairs and steps, initial encounter; Y93.89 Activity, other specified; Y92.89 Other specified places as the place of occurrence of the external cause; Y99.8 Other external cause status
CPT/HCPCS: 73502; 99284

== ENCOUNTER 2024-09-08 10:00 | Outpatient (REF) | payer MEDICARE, SELFPAY ==
[2024-09-08 13:02] LABS: MANUAL DIFF FLAG NO
[2024-09-08 13:09] LABS: Basophils Absolute Auto 0.1 X10*3/uL (0.0-0.2); Basophils Percent Auto 1.3 % (0-2); Eosinophils Absolute Auto 0.3 X10*3/uL (0.0-0.4); Eosinophils Percent Auto 4.1 % (0-4); Hematocrit 42.4 % (37.0-47.0); Imm Gran Abs Auto 0.02 X10*3/uL (0.00-0.03); Imm Gran Pct Auto 0.3 % (0.0-0.4); Lymphocytes Percent Auto 29.5 % (20-40); Mean Corpuscular Hemoglobin 31.4 pg (27.0-33.0); Mean Corpuscular Volume 95.1 fL (80.0-98.0); Mean Platelet Volume 9.8 fL (9.4-12.3); Monocytes Absolute Auto 0.5 X10*3/uL (0.1-1.2); Monocytes Percent Auto 6.7 % (2-11); Neutrophils Percent Auto 58.1 % (45-73); Platelet Count 355 X10*3/uL (160-400); Red Blood Count 4.46 X10*6/uL (4.20-5.50); Red Cell Distribution Width 12.5 % (11.0-16.0); White Blood Count 6.9 X10*3/uL (4.8-10.8)
[2024-09-08 13:15] LABS: Appearance Urine Clear; Color Urine Yellow; Glucose Urine UA Negative (Negative); Leukocyte Esterase Urine Negative (Negative); Nitrite Urine Negative (Negative); Urine Blood Negative (Negative); Urine Ketones Negative (Negative); Urine Protein Negative (Neg-Trace)
[2024-09-08 13:37] LABS: Alanine Aminotransferase 26 U/L (0-31); Albumin Level 4.1 g/dL (3.5-5.0); Alkaline Phosphatase 82 U/L (39-117); Anion Gap 10 (12-20); Aspartate Amino Transferase 32 U/L (5-31); Bilirubin Total 0.6 mg/dL (0.0-1.0); Blood Urea Nitrogen 21 mg/dL (9-16); Calcium 9.4 mg/dL (8.4-10.2); Carbon Dioxide 29 mmol/L (22-29); Chloride 104 mmol/L (96-108); Cholesterol 239 mg/dL (<200); Estimated Glomerular Filt Rate > 60; Glucose Fasting 94 mg/dL (60-99); HDL Cholesterol 76 mg/dL (>40); LDL Cholesterol Calculated 148 mg/dL (<100); Potassium 3.9 mmol/L (3.3-5.1); Sodium 139 mmol/L (135-145); Total Protein 6.9 g/dL (6.5-8.0); Triglycerides 75 mg/dL (<150)
[2024-09-08 13:57] LABS: TSH reflex Free T4 0.95 uIU/mL (0.32-4.0)
== END 2024-09-08 10:01 | disposition home or self-care (01) ==
LOC: HO.HMGCX 10:00
PROVIDERS: PCP Nurse Practitioner Family; Visit Provider Urology
DX: N28.1 Cyst of kidney, acquired (principal); M81.0 Age-related osteoporosis without current pathological fracture; F41.0 Panic disorder [episodic paroxysmal anxiety]
CPT/HCPCS: 36415; 76775; 80053; 80061; 81003; 82306; 84443; 85025

== ENCOUNTER → 2024-09-08 10:27 | Outpatient (BNV) | payer MEDICARE, SELFPAY | PROVIDERS: PCP Nurse Practitioner Family; Visit Provider Radiology Diagnostic Radiology | DX: N28.1 Cyst of kidney, acquired (principal) | CPT/HCPCS: 76775 ==

== ENCOUNTER 2024-09-18 14:01 | Outpatient (AMB) | payer MEDICARE, SELFPAY ==
--- NOTE | 2024-09-18 12:49 | A.OFFVIS_ITS ---
Intake Visit Reasons: US results Intake Note: Patient is present for US RESULTS Urology Medication:NONE Antibiotic Allergy:AMOXICILLIN Blood Thinner:VITAMIN K2 Events Associate Required: No Allergies amoxicillin [Augmentin] Allergy (Severe, Verified 09/18/24 14:07) Anaphylaxis clavulanic acid [Augmentin] Allergy (Severe, Verified 09/18/24 14:07) Anaphylaxis Self Adherent Wrap Adverse Reaction (Intermediate, Uncoded 09/18/24 14:07) Hives to area HPI Comments Details: 09/18/24--Natalie is here for FU s/p renal US -- 09/08/24-- bilateral simple cysts - stable - mult in right kid, 1 in left no fu needed. Review of chart: 09/10/2023?Natalie is a 72-year-old male who presents today via Tele-health visit for a follow-up. She is followed today for MRI results. She was last seen by me on 09/03/2023 for complex renal cyst. H/O nicotine dependence. She quit smoking about 40 years ago. I reviewed the MRI results which revealed complex renal cyst meets the criteria of benign cyst; no enhancement noted. 07/01/2023?Cystoscopy finding today: Bladder was WNL. No suspicious bladder lesions noted. Imaging: Renal US results from 06/18/2023 revealed 2 complex cysts in the upper to mid right kidney. The largest measures 2.1 x 2.8 x 2 cm and contains questionable solid component with flow. [facility] Medical History (Updated 10/01/24 @ 16:36 by France Orourke MD) Glaucoma Dyslipidemia Osteoporosis Decreased appetite Panic attacks Anxiety Asthma COPD (chronic obstructive pulmonary disease) Eosinophilia Microhematuria Surgical History (Updated 07/10/24 @ 09:47 by Mariaelena Cortez RN) Hx of eye surgery Hx of cataract extraction History of surgery on right wrist Hx of colonoscopy Family History Mother No known health problems Father No known health problems Social History Household Members: None Housing: House Housing Other:: private upper level of family home Are you a primary menagerie caretaker to a significant other at home: No Do you presently have visiting nurse or other home services: No Patient Tobacco Use Status: Former Tobacco user Tobacco use type: Cigarette Years Smoked: 10 e-Cigarette/Vaping Use: Never Used Current occupational status: retired Cognitive needs: No Hearing needs: No Vision needs: No Review of Systems Const All systems reviewed & are unremarkable except as noted in HPI and below Reports no additional complaints Eyes Reports no additional complaints ENT Reports no additional complaints Card Reports no additional complaints Resp Reports no additional complaints GI Reports no additional complaints Reports as per HPI Musc Reports no additional complaints Skin/Breast Reports system reviewed and no additional complaints, except as documented Neuro Reports no additional complaints Psych Reports no additional complaints Endo Reports no additional complaints Ayaan/Lymph Reports no additional complaints Aller/Immun Reports no additional complaints Results AMB Urinalysis, Automated UA Leukoctes 0 Raven/uL Last Edit by FELIZ Wang on 09/18/24 14:51 UA Nitrite Negative Last Edit by Candida Rutledge CCM on 09/18/24 14:51 UA Urobilinogen 0.2 mg/dL Last Edit by Candida Rutledge CCM on 09/18/24 14:5 1 UA Protein 0 mg/dL Last Edit by Candida Rutledge CCM on 09/18/24 14:51 UA pH 6.0 Last Edit by Candida Rutledge CCM on 09/18/24 14:51 UA Blood 0 Nik/uL Last Edit by Candida Rutledge CCM on 09/18/24 14:51 UA Specific Cowan 1.030 Last Edit by aCndida Rutledge CCM on 09/18/24 14: 51 UA Ketone Negative Last Edit by Candida Rutledge CCM on 09/18/24 14:51 UA Bilirubin 0 mg/dL Last Edit by Candida Rutledge CCM on 09/18/24 14:51 UA Glucose 0 mg/dL Last Edit by Candida Rutledge CCM on 09/18/24 14:51 Results Reviewed Results Reviewed: Laboratory Last Values Urine pH (Auto) 6.0 09/18/24 14:51 Specific Cowan (Auto) 1.030 09/18/24 14:51 Urine Protein (Auto) 0 mg/dL 09/18/24 14:51 Glucose (UA)(Auto) 0 mg/dL 09/18/24 14:51 Urine Ketones (Auto) Negative 09/18/24 14:51 Urine Blood (Auto) 0 Nik/uL 09/18/24 14:51 Urine Nitrite (Auto) Negative 09/18/24 14:51 Urine Bilirubin (Auto) 0 mg/dL 09/18/24 14:51 Urine Urobilinogen (Auto) 0.2 mg/dL 09/18/24 14:51 Leukocyte Esterase (Auto) 0 Raven/uL 09/18/24 14:51 Date of Service: 06/18/23 EXAMINATION: US RETROPERITONEAL LIMITED (RENAL ONLY) FINDINGS: RIGHT KIDNEY: 10.3 x 4.3 x 5.8 cm (SAG x AP x TRV). The kidney is normal in size, contour, and echogenicity. Renal cortical thickness is normal. There are 2 adjacent complex cysts in the upper to mid right kidney. Largest measures 2.1 x 2.8 x 2 cm. This contains questionable solid component with flow. There is a 1.9 x 1.8 x 2 cm cyst with internal echoes questionable for echogenic debris. These are increased in size from 1.9 x 1.7 x 1.7 cm and 1.9 x 2.1 x 1.9 cm June 2022 exam. No calculi. No hydronephrosis. LEFT KIDNEY: 11 x 3.7 x 5 cm (SAG x AP x TRV). The kidney is normal in size, contour, and echogenicity. Renal cortical thickness is normal. No calculi or focal parenchymal lesions. No hydronephrosis. There is a 1.7 x 1.3 x 1.5 cm simple cyst in the lower pole. No imaging follow-up recommended. IMPRESSION: 2 complex cysts in the upper to mid right kidney. The largest measures 2.1 x 2.8 x 2 cm and contains questionable solid component with flow. Follow-up CT or MRI of the kidneys with and without contrast recommended. Assessment & Plan Assessment & Plan (1) Renal cyst: Code(s): N28.1 - Cyst of kidney, acquired Category: Medical Plan Renal cysts stable follow-up p.r.n. Orders: Orders AMB Urinalysis Automated 09/18/24 Z13.9 - Encounter for screening, unspecified Patient Instructions: The patient had an opportunity to ask questions regarding treatment plan. The patient expressed understanding and agreement with the above treatment plan. The patient is aware they should contact our office by phone for worsening of their current condition or the appearance of new symptoms. Compliance is encouraged with any medications and followup testing that is ordered. It is a privilege to be allowed the opportunity to participate in the urologic care of your patient. If you have any questions or concerns regarding treatment for the above conditions please do not hesitate to contact me. The office telephone contact is [phone]. This note is constructed in part using voice recognition software. While every effort has been made to ensure accuracy payroll specialist errors may have been included. Yours sincerely, France Orourke MD Coding Level of Care Code Est Pt Level 3 (38418) Diagnoses Renal cyst N28.1
== END 2024-09-18 14:58 | disposition home or self-care (01) ==
PROVIDERS: PCP Nurse Practitioner Family; Visit Provider Urology
DX: N28.1 Cyst of kidney, acquired (principal)
CPT/HCPCS: 99213

== ENCOUNTER → 2024-09-18 14:01 | Outpatient (BNVA) | payer MEDICARE, SELFPAY | PROVIDERS: PCP Nurse Practitioner Family; Visit Provider Urology | DX: N28.1 Cyst of kidney, acquired (principal) | CPT/HCPCS: 81003; 99212 ==

== ENCOUNTER 2024-10-02 14:00 | Outpatient (RCR) | payer MEDICARE, SELFPAY ==
--- NOTE | 2024-09-04 11:54 | MHC.PT.EP ---
[facility] [place] Office [place] Office [place] Office [address] Abdon Carrillo [address] [phone] F: [phone] F: [phone] F: [phone] F: [phone] Physical Therapy Plan of Care Date of Evaluation: 09/04/24 Date of Surgery: Diagnosis: hip pain Assessment: 73 y/o female referred to PT with R hip pain. Pt fell down 2 steps on 07/28/24 landing on her R side. Denies hitting head. Went to ED and xrays negative or fracture. She used a cane for first week and now ambulates without assistive device. Over the past 2-3 weeks she has returned to yoga class and water aerobics, but not performing all exercises d/t hip pain. Currently pain and difficulty with walking, stairs, standing, getting up.down from chair, sleeping on side, and full participate in yoga/ aqua aerobics classes. Examination shows decreased R hip strength, TTP over greater trochanteric bursa, decreased R piriformis length, pain, and impaired gait pattern. S/s consistent with bursitis d/t trauma, gluteal tendonipathy, and ?contusion. Recommend PT 1x/week for 4 weeks toa ddress impairments, implement HEP, and optimize functional mobility. Frequency and Duration: The patient will be seen 1x/week for 4 weeks Short Term Goals: 2 weeks I with HEP Signal Technician Goals: 4 weeks I with hEP and self management of sx Pt will be able to ambulate > 25 minutes with pain < 3/10 Pt will improve LEFS to 60/80 (IR 50/80) Treatment Plan: Modalities to reduce pain, spasms and effusion. Manual therapy to restore motion and function. Therapeutic exercise to improve strength and flexibility. Neuromuscular re-education for posture and balance. Therapeutic activities to return to functional activities of daily living. Electronically signed by: Nadia Rodney PT Please sign and return to therapist. Thank you for your referral.
--- NOTE | 2024-10-02 14:42 | MHC.PT.DC ---
[facility] [place] Office [place] Office [place] Office [address] Abdon Carrillo [address] [phone] F: [phone] F: [phone] F: [phone] F: [phone] Physical Therapy Discharge Report Diagnosis: hip pain Date of Surgery: Date of Evaluation: 09/04/24 Date of Discharge: 10/02/24 Treatments to Date: 5 Cancellations to Date: 0 No Shows to Date: 0 Discharge Status: Achieved Goals Improved Function Independent with HEP Discharge Summary: Pt reports feeling better and able to walk without difficulty now. She is compliant with HEP and has no further questions at this time. Electronically signed by: Nadia Rodney PT Please sign and return to therapist. Thank you for your referral.
== END 2024-10-02 14:42 | disposition home or self-care (01) ==
LOC: HO.PTCHIC 14:00
PROVIDERS: PCP Nurse Practitioner Family; Visit Provider Nurse Practitioner Family
DX: M25.551 Pain in right hip (principal)
CPT/HCPCS: 97110; 97140; 97162

== ENCOUNTER 2024-10-12 09:52 | Outpatient (REF) | payer MEDICARE, SELFPAY | END 2024-10-12 09:53 | disposition home or self-care (01) | LOC: HO.MAMMO 09:52 | PROVIDERS: PCP Nurse Practitioner Family; Visit Provider Nurse Practitioner Family | DX: Z12.31 Encounter for screening mammogram for malignant neoplasm of breast (principal) | CPT/HCPCS: 77063; 77067 ==

== ENCOUNTER → 2024-10-12 10:00 | Outpatient (BNV) | payer MEDICARE, SELFPAY | PROVIDERS: PCP Nurse Practitioner Family; Visit Provider Internal Medicine | DX: Z12.31 Encounter for screening mammogram for malignant neoplasm of breast (principal) | CPT/HCPCS: 77063; 77067 ==

== ENCOUNTER 2024-11-20 08:34 | Outpatient (AMB) | payer MEDICARE, SELFPAY ==
[2024-11-20 09:03] VITALS: BP 110/60; PULSE 80; TEMP 36.8; O2SAT 97; BMI 19.3
--- NOTE | 2024-11-20 09:03 | AM.OFFWIN_ITS ---
Intake Vital Signs 11/20/24 09:03 Height 5 ft 3 in Weight 109 lb BMI 19.3 BP 110/60 Blood Pressure Location Lt brachial Position Sitting Pulse 80 Pulse Source Pulse Oximeter Temp 98.2 F Temp Source Oral Pulse Oximetry (%) 97 Oxygen Delivery Method Room Air Intake Visit Reasons: EP-?sinus infection Intake Note: pt is here for sinus infection Patient Tobacco Use Status: Former Tobacco user Allergies amoxicillin [Augmentin] Allergy (Severe, Verified 11/20/24 09:03) Anaphylaxis clavulanic acid [Augmentin] Allergy (Severe, Verified 11/20/24 09:03) Anaphylaxis Self Adherent Wrap Adverse Reaction (Intermediate, Uncoded 09/18/24 14:07) Hives to area Do you need a note to return to daycare/school/sports/work: No HPI HPI Comments History of Present Illness Details 74 y/o female patient who presents to [facility] walk in clinic with c/o SOB, coughing, Chest tightness and wheezing for few days. H/o Asthma. [facility] Medical History (Updated 11/20/24 @ 09:36 by Kayla Felix NP) Asthma with acute exacerbation Glaucoma Dyslipidemia Osteoporosis Decreased appetite Panic attacks Anxiety Asthma COPD (chronic obstructive pulmonary disease) Eosinophilia Microhematuria Surgical History (Updated 07/10/24 @ 09:47 by Mariaelena Cortez RN) Hx of eye surgery Hx of cataract extraction History of surgery on right wrist Hx of colonoscopy Family History Mother No known health problems Father No known health problems Social History Household Members: None Housing: House Housing Other:: private upper level of family home Are you a primary physician primary care sports medicine to a significant other at home: No Do you presently have visiting nurse or other home services: No Patient Tobacco Use Status: Former Tobacco user Tobacco use type: Cigarette Years Smoked: 10 e-Cigarette/Vaping Use: Never Used Current occupational status: retired Cognitive needs: No Hearing needs: No Vision needs: No Review of Systems Const All systems reviewed & are unremarkable except as noted in HPI and below Physical Exam Vital Signs: Last Vital Signs Temp 98.2 F 11/20/24 09:03 Pulse 80 11/20/24 09:03 BP 110/60 11/20/24 09:03 Pulse Ox 97 11/20/24 09:03 Oxygen Delivery Method Room Air 11/20/24 09:03 BMI result Body Mass Index 19.3 Const General: cooperative and no acute distress Orientation/consciousness: patient oriented x3 HEENT Head: Yes normocephalic Ears: external ears normal and TM's normal bilaterally General nose exam: Abnormal mucous membranes and turbinates present boggy and erythematous Face and sinus: Yes sinus tenderness Mouth: moist mucous membranes Resp Effort & Inspection: normal respiratory effort, able to speak in complete sentences and Actively coughing Auscultation: no crackles, no rales, rhonchi throughout and wheezes scattered wheezes Cardio Heart sounds: S1 normal heart sound present and S2 normal heart sound present Neuro General: patient oriented x3, gait normal and moves all extremities Psych Speech and movement: Normal speech and movement present Office Procedures Nebulizer Treatment Nebulizer Treatment 47638-Buxyxfmlo/MDI RX initial, or Nebulizer Subsequent Treatment Office Meds ipratropium 0.5 mg-albuterol 3 mg (2.5 mg base)/3 mL nebulization soln Performing Provider: Kayla Felix NP Performing Location: [facility] Administered by: Kayla Felix NP on 11/20/24 09:37 Dose Route Admin Location Dispensed Lot Number Expiration Date [facility] Recycle Driver 3 mL inhalation 3 mL 12/22/25 [id number] [employer] Assessment & Plan Assessment & Plan (1) Asthma with acute exacerbation: Code(s): J45.901 - Unspecified asthma with (acute) exacerbation Qualifiers: Asthma persistence: persistent Asthma severity: moderate Qualified Code(s): J45.41 - Moderate persistent asthma with (acute) exacerbation Plan: Ordered Neb Treatment in office Ordered Abx and Prednisone. Orders: Orders AMB Nebulizer Treatment Today J45.41 - Moderate persistent asthma with (acute) exacerbation Medications: New doxycycline hyclate 100 mg PO BID 20 tabs 0RF 10 days J45.41 - Moderate persistent asthma with (acute) exacerbation prednisone 50 mg PO DAILY 5 tabs 0RF 5 days J45.41 - Moderate persistent asthma with (acute) exacerbation Coding Level of Care Code Est Pt Level 4 (23026) Diagnoses Moderate persistent asthma with acute exacerbation J45.41 Asthma persistence: persistent Asthma severity: moderate CPT Codes Nebulizer Treatment - Nebulizer Treatment, initial or subsequent: 89505- Nebulizer/MDI RX initial, or Nebulizer Subsequent Treatment ([id number]) Time Spent (min) 20
== END 2024-11-20 10:29 | disposition home or self-care (01) ==
PROVIDERS: PCP Nurse Practitioner Family; Visit Provider Nurse Practitioner Family
DX: J45.41 Moderate persistent asthma with (acute) exacerbation (principal)

== ENCOUNTER → 2024-11-20 08:34 | Outpatient (BNVA) | payer MEDICARE, SELFPAY | PROVIDERS: PCP Nurse Practitioner Family | DX: J45.41 Moderate persistent asthma with (acute) exacerbation (principal) | CPT/HCPCS: 94640; 99212 ==

== ENCOUNTER 2024-12-21 13:39 | Outpatient (AMB) | payer MEDICARE, SELFPAY ==
[2024-12-21 13:44] VITALS: BP 110/70; PULSE 81; TEMP 36.6; O2SAT 94; BMI 20.5
--- NOTE | 2024-12-21 13:44 | MHC.PC.OV ---
Vital Signs 12/21/24 13:44 Height 5 ft 3 in Weight 116 lb BMI 20.5 BP 110/70 Blood Pressure Location Rt brachial Position Sitting Pulse 81 Pulse Source Pulse Oximeter Temp 97.8 F Temp Source Oral Pulse Oximetry (%) 94 Oxygen Delivery Method Room Air Intake Visit Reasons: Annual PE Allergies amoxicillin [Augmentin] Allergy (Severe, Verified 12/21/24 14:47) Anaphylaxis clavulanic acid [Augmentin] Allergy (Severe, Verified 12/21/24 14:47) Anaphylaxis doxycycline Adverse Reaction (Intermediate, Verified 12/21/24 14:47) Vomiting Self Adherent Wrap Adverse Reaction (Intermediate, Uncoded 12/21/24 14:47) Hives to area Medication List - Last Reconciled 12/21/24 by HARSHA Landin albuterol sulfate 90 mcg/actuation 2 puffs inhalation Q6H PRN 30 days albuterol sulfate 2.5 mg (3 mL) inhalation Q4-6H PRN ascorbate calcium (vitamin C) 500 mg PO DAILY bupropion HCl XL (Wellbutrin XL) 150 mg PO QAM buspirone 10 mg PO BID cholecalciferol (vitamin D3) 10 mcg PO DAILY fluticasone propion-salmeterol 230-21 mcg/actuation (Advair HFA) 2 puffs inhalation BID ipratropium-albuterol 0.5 mg-3 mg(2.5 mg base)/3 mL 3 mL inhalation Q12H PRN 30 days levocetirizine 5 mg PO QPM PRN lorazepam 0.5 mg PO DAILY PRN 30 days multivitamin 1 tab PO DAILY naproxen 500 mg PO BID PRN 7 days pravastatin 20 mg PO BEDTIME 90 days trazodone 50 mg PO BEDTIME PRN vitamin K2 100 mcg PO DAILY Tobacco use date assessed: 12/21/24 Fall risk assessment: No Falls in past year Last assessed Fall Risk: 12/21/24 Dental Screening Dental Screen Date: 12/21/24 Did you have a dental visit in the last 12 months?: Yes Did you have a dental problem in the last 6 months where you did not have access to dental care?: No Was dental information given to patient?: Patient has dentist [facility] Medical History Asthma with acute exacerbation Glaucoma Dyslipidemia Osteoporosis Decreased appetite Panic attacks Anxiety Asthma COPD (chronic obstructive pulmonary disease) Eosinophilia Microhematuria Surgical History Hx of eye surgery Hx of cataract extraction History of surgery on right wrist Hx of colonoscopy Family History Mother No known health problems Father No known health problems Social History Household Members: None Housing: House Housing Other:: private upper level of family home Are you a primary body care manager to a significant other at home: No Do you presently have visiting nurse or other home services: No Patient Tobacco Use Status: Former Tobacco user Tobacco use type: Cigarette Years Smoked: 10 e-Cigarette/Vaping Use: Never Used Current occupational status: retired Cognitive needs: No Hearing needs: No Vision needs: No Questionnaire PHQ-9 Over the last 2 weeks, how often have you been bothered by any of the following problems? 1. Little interest or pleasure in doing things: more than half the days 2. Feeling down, depressed, or hopeless: several days 3. Trouble falling or staying asleep, or sleeping too much: several days 4. Feeling tired or having little energy: more than half the days 5. Poor appetite or overeating: several days 6. Feeling bad about yourself - or that you are a failure or have let yourself or your family down: not at all 7. Trouble concentrating on things, such as reading the newspaper or watching television: several days 8. Moving or speaking so slowly that other people could have noticed. Or the opposite - being so fidgety or restless that you have been moving around a lot more than usual: not at all 9. Thoughts that you would be better off or of hurting yourself in some way: not at all Total score: 8 Depression Screening Interpretation: Positive (does not want a therapist, denies any SI or HI) Depression Screening Follow-up: Existing condition Depression Screening Done: Yes 67101 - PHQ-9 Billing: Yes Source: Developed by Drs. Farooq L. EliasRuth betts, Matheus Mckinley and colleagues, with an educational jhon from [employer]. Thrive Questionnaire Date Thrive assessed: 12/21/24 I am a: Patient What is your living situation today?: I have a steady place to live Within the past 12 months, did the food you bought not last and you didn't have the money to get more?: Never true Within the past 12 months, did you worry whether your food would run out before you got money to buy more?: Never true Do you have trouble paying for medicines?: No Do you have trouble getting transportation to medical appointments?: No Do you have trouble paying your heating and electricity bill?: No Do you have trouble taking care of your child, family member or friend?: No Do you have trouble with day-to-day activities such as bathing, preparing meals, shopping, managing finances, etc.?: No Are you currently unemployed and looking for a job?: No Are you interested in more education?: Yes Please select the resources that you would like help with: Childcare Currently or been in a relationship where the following occur: No concerns reported THRIVE Score: 0 AUDIT C Alcohol Use Questionnaire (AUDIT-C) 1. How often do you have a drink containing alcohol?: 2-4 times a month 2. How many drinks containing alcohol do you have on a typical day when you are drinking?: 1 or 2 3. How often do you have six or more drinks on one occasion?: Never Total Score: 2 Score Reviewed/Action Taken: Yes NI-7 AMB Questionnaire NI-7 Date NI - 7 assessed: 12/21/24 Feeling nervous, anxious, or on edge: 2 = More than half the days Not being able to stop or control worryin = More than half the days Worrying too much about different things: 1 = Several days Trouble relaxin = Several days Being so restless that it is hard to sit still: 1 = Several days Becoming easily annoyed or irritable: 1 = Several days Feeling afraid as if something awful might happen: 0 = Not at all Total NI-7 score (0-4 normal; 5-9 mild; 10-14 moderate; 15-21 severe): 8 Source: Developed by Ruth Acosta, Matheus Mckinley and colleagues, with an educational jhon from [employer]. NI-7 Assessment Billing NI-7 Assessment Tool: NI-7 Assessment 26423 (denies any si or HI, refuses a therapist) Physical exam (Primary Care) Vital Signs: Last Vital Signs Temp 97.8 F 12/21/24 13:44 Pulse 81 12/21/24 13:44 BP 110/70 12/21/24 13:44 Pulse Ox 94 12/21/24 13:44 Oxygen Delivery Method Room Air 12/21/24 13:44 BMI result Body Mass Index 20.5 Tobacco/Smoking Status: Tobacco use Status Tobacco use date assessed 12/21/24 12/21/24 13:46 Patient Tobacco Use Status Former Tobacco user 12/21/24 13:46 Tobacco use type Cigarette 12/21/24 13:46 e-Cigarette/Vaping Use Never Used 12/21/24 13:46 PHQ-9: PHQ-9 Score PHQ-9: Total score 8 12/21/24 13:46 Depression Screening Interpretation: Positive (does not want a therapist, denies any SI or HI) Depression Screening Follow-up: Existing condition Thrive Assessment: Date of Thrive Assessment Date Thrive assessed 12/21/24 12/21/24 13:46 Currently or been in a relationship where the following occur: No concerns reported Coding Level of Care Code Est Pt Prev Care >65y(77750) Diagnoses Physical exam Z00. Vitamin D deficiency E55.9 Facial lesion L98.9 Additional Codes PHQ-9 - 38976 - PHQ-9 Billing: Yes ([id number]) NI-7 Assessment Billing - NI-7 Assessment Tool: NI-7 Assessment 28291 ([id number]) Assessment & Plan Assessment & Plan (1) Physical exam: Code(s): Z00.00 - Encounter for general adult medical examination without abnormal findings Category: Medical (2) Vitamin D deficiency: Code(s): E55.9 - Vitamin D deficiency, unspecified Category: Medical (3) Facial lesion: Code(s): L98.9 - Disorder of the skin and subcutaneous tissue, unspecified Category: Medical Plan . Orders: Orders Comprehensive [place]. Panel Fast Today Z00.00 - Encounter for general adult medical examination without abnormal findings TSH reflex Free T4 Today Z00.00 - Encounter for general adult medical examination without abnormal findings UA CC w/rflx Micro + Cult Today Z00.00 - Encounter for general adult medical examination without abnormal findings Vitamin D 25-OH Total Today E55.9 - Vitamin D deficiency, unspecified Complete Blood Count Auto Diff Today Z00.00 - Encounter for general adult medical examination without abnormal findings Lipid Panel Today Z00.00 - Encounter for general adult medical examination without abnormal findings Referrals Dermatology Referral L98.9 - Disorder of the skin and subcutaneous tissue, unspecified
== END 2024-12-21 14:48 | disposition home or self-care (01) ==
PROVIDERS: PCP Nurse Practitioner Family; Visit Provider Nurse Practitioner Family
DX: Z00.00 Encounter for general adult medical examination without abnormal findings (principal); E55.9 Vitamin D deficiency, unspecified; L98.9 Disorder of the skin and subcutaneous tissue, unspecified

== ENCOUNTER → 2024-12-21 13:39 | Outpatient (BNVA) | payer MEDICARE, SELFPAY | PROVIDERS: PCP Nurse Practitioner Family; Visit Provider Nurse Practitioner Family | DX: Z00.00 Encounter for general adult medical examination without abnormal findings (principal); E55.9 Vitamin D deficiency, unspecified; L98.9 Disorder of the skin and subcutaneous tissue, unspecified | CPT/HCPCS: 96127; 99397 ==

== ENCOUNTER 2025-01-01 10:07 | Outpatient (AMB) | payer MEDICARE, SELFPAY ==
[2025-01-01 10:33] VITALS: BP 120/62; PULSE 73; O2SAT 96; BMI 19.9
--- NOTE | 2025-01-01 10:33 | MHC.OFFVIS ---
Vital Signs 01/01/25 10:33 Height 5 ft 3 in Weight 112 lb 6.972 oz BMI 19.9 BP 120/62 Blood Pressure Location Lt brachial Position Sitting Pulse 73 Pulse Source Pulse Oximeter Pulse Oximetry (%) 96 Oxygen Delivery Method Room Air Intake Visit Reasons: productive cough Intake Note: pt is here for follow up and states she feels pretty good,cough is better. 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 Allergies amoxicillin [Augmentin] Allergy (Severe, Verified 01/01/25 10:54) Anaphylaxis clavulanic acid [Augmentin] Allergy (Severe, Verified 01/01/25 10:54) Anaphylaxis doxycycline Adverse Reaction (Intermediate, Verified 01/01/25 10:54) Vomiting Self Adherent Wrap Adverse Reaction (Intermediate, Uncoded 01/01/25 10:54) Hives to area Medication List - Last Reconciled 01/01/25 by Virgil Vital MD albuterol sulfate 90 mcg/actuation 2 puffs inhalation Q6H PRN 30 days albuterol sulfate 2.5 mg (3 mL) inhalation Q4-6H PRN ascorbate calcium (vitamin C) 500 mg PO DAILY bupropion HCl XL (Wellbutrin XL) 150 mg PO QAM buspirone 10 mg PO BID cholecalciferol (vitamin D3) 10 mcg PO DAILY fluticasone propion-salmeterol 230-21 mcg/actuation (Advair HFA) 2 puffs inhalation BID ipratropium-albuterol 0.5 mg-3 mg(2.5 mg base)/3 mL 3 mL inhalation Q12H PRN 30 days levocetirizine 5 mg PO QPM PRN lorazepam 0.5 mg PO DAILY PRN 30 days multivitamin 1 tab PO DAILY naproxen 500 mg PO BID PRN 7 days pravastatin 20 mg PO BEDTIME 90 days trazodone 50 mg PO BEDTIME PRN vitamin K2 100 mcg PO DAILY Do you need a note to return to daycare/school/sports/work: No HPI HPI productive cough: Details: THIS 74 YEARS OLD VERY PLEASANT FEMALE IS COMING FOR ROUTINE FOLLOW-UP AFTER 6 MONTHS. SHE DID HAVE AN ACUTE EXACERBATION ABOUT 5 OR 6 WEEKS AGO AND WAS TREATED WITH A SHORT COURSE OF PREDNISONE AND ALSO A COURSE OF DOXYCYCLINE. AT PRESENT SHE HAS ONLY MILD INTERMITTENT COUGH. SHE DENIES ANY WHEEZING ATTACKS HOWEVER SHE STILL ENDS UP USING ALBUTEROL INHALER 2 OR 3 TIMES A DAY. NO FEVER OR CHILLS. PFSH Medical History Asthma with acute exacerbation Glaucoma Dyslipidemia Osteoporosis Decreased appetite Panic attacks Anxiety Asthma COPD (chronic obstructive pulmonary disease) Eosinophilia Microhematuria Surgical History Hx of eye surgery Hx of cataract extraction History of surgery on right wrist Hx of colonoscopy Family History Mother No known health problems Father No known health problems Social History Household Members: None Housing: House Housing Other:: private upper level of family home Are you a primary respiratory care assistant to a significant other at home: No Do you presently have visiting nurse or other home services: No Patient Tobacco Use Status: Former Tobacco user Tobacco use type: Cigarette Years Smoked: 10 e-Cigarette/Vaping Use: Never Used Current occupational status: retired Cognitive needs: No Hearing needs: No Vision needs: No Review of Systems Const All systems reviewed & are unremarkable except as noted in HPI and below Eyes Reports no additional complaints ENT Reports nasal congestion (Mild intermittent) Card Denies irregular heart rhythm and Denies leg edema Resp Reports as per HPI GI Reports no additional complaints Reports no additional complaints Musc Reports no additional complaints Skin/Breast Reports system reviewed and no additional complaints, except as documented Neuro Reports no additional complaints Psych Reports no additional complaints Endo Reports no additional complaints Ayaan/Lymph Reports no additional complaints Physical Exam Vital Signs: Last Vital Signs Pulse 73 01/01/25 10:33 BP 120/62 01/01/25 10:33 Pulse Ox 96 01/01/25 10:33 Oxygen Delivery Method Room Air 01/01/25 10:33 BMI result Body Mass Index 19.9 Const General: healthy appearing, comfortable, no acute distress, alert and awake Orientation/consciousness: patient oriented x3 HEENT Head: Yes normal to inspection General nose exam: No nasal polyps present, No nasal discharge present and Other nasal findings present (Mild nasal congestion) Face and sinus: Yes sinuses nontender Mouth: oropharynx normal Throat: Yes posterior oropharynx normal Eyes General: appearance normal, both eyes and all related structures Neck Neck: Yes normal visual inspection, Yes no lymphadenopathy, Yes trachea midline and Yes no JVD Thyroid: Thyroid normal Chest Chest palpation & inspection: normal inspection of the chest, normal palpation of entire chest wall and no tenderness Resp Other: Percussion note hyper resonant . Breath sounds are slightly distant with prolonged expiratory phase No wheezes or crepitations are heard. Cardio Palpation: normal PMI Rate: regular rate Rhythm: regular rhythm Heart sounds: no gallops and no murmurs Peripheral pulses: Peripheral pulses 2+ throughout GI Palpation (GI): Soft to palpation, nontender, No hepatosplenomegaly present and no masses Auscultation: normal bowel sounds Back/Spine/Pelvis Thoracic/Lumbar Spine: thoracic and lumbar spine normal to inspection Skin General skin exam: no rashes or lesions noted Neuro General: patient oriented x3 and no focal motor deficits Cranial nerves: Yes CN's II-XII intact bilaterally Extrem General: Yes normal to inspection, Yes no clubbing, cyanosis or edema and Yes no calf tenderness Psych Speech and movement: Normal speech and movement present Assessment & Plan Assessment & Plan (1) Asthma: Comment: Chronic allergic bronchial asthma. Mostly presenting in the form of cough. Relatively controlled at this time. She does have mild eosinophilia. Code(s): J45.909 - Unspecified asthma, uncomplicated Category: Medical Plan: C treatment under COPD. (2) COPD (chronic obstructive pulmonary disease): Comment: Patient has past history of smoking. Chest x-ray showed hyperinflated lung/pulmonary emphysema. PFT, C/W obstructive airway disorder, severe. Seems to be relatively controlled at this time with the current regimen. Code(s): J44.9 - Chronic obstructive pulmonary disease, unspecified Category: Medical Plan: Advised to continue using Advair HFA 230-21, 2 puffs b.i.d. advised to rinse mouth and throat with saline water thoroughly after using Advair Advised to cut down the use of albuterol inhaler Advised to use ipratropium-albuterol solution in the nebulizer, Q 6 hours p.r.n., when at home. Medications: New prednisone 20 mg PO BID 5 days 10 tabs 0RF asthma excerbation Coding Level of Care Code Est Pt Level 3 (67941) Diagnoses Asthma J45.909 COPD (chronic obstructive pulmonary disease) J44.9
== END 2025-01-01 10:54 | disposition home or self-care (01) ==
PROVIDERS: PCP Nurse Practitioner Family; Visit Provider Internal Medicine
DX: J45.909 Unspecified asthma, uncomplicated (principal); J44.9 Chronic obstructive pulmonary disease, unspecified
CPT/HCPCS: 99213

== ENCOUNTER → 2025-01-01 10:07 | Outpatient (BNVA) | payer MEDICARE, SELFPAY | PROVIDERS: PCP Nurse Practitioner Family; Visit Provider Internal Medicine | DX: J44.9 Chronic obstructive pulmonary disease, unspecified (principal) | CPT/HCPCS: 99212 ==

== ENCOUNTER 2025-04-16 13:52 | Outpatient (AMB) | payer MEDICARE, SELFPAY ==
[2025-04-16 13:56] VITALS: BP 108/62; PULSE 86; RESP 15; TEMP 37.2; O2SAT 93; BMI 20.5
--- NOTE | 2025-04-16 13:56 | A.OFFPC_ITS ---
Vital Signs 04/16/25 13:56 Height 5 ft 3 in Weight 116 lb BMI 20.5 BP 108/62 Blood Pressure Location Rt brachial Position Sitting Respiration 15 Pulse 86 Pulse Source Pulse Oximeter Temp 98.9 F Temp Source Oral Pulse Oximetry (%) 93 Oxygen Delivery Method Room Air Intake Visit Reasons: 4m follow up Intake Note: Pt is here today for her 4mo. f/u Allergies amoxicillin (Augmentin) Allergy (Severe, Verified 04/16/25 13:57) Anaphylaxis clavulanic acid (Augmentin) Allergy (Severe, Verified 04/16/25 13:57) Anaphylaxis doxycycline Adverse Reaction (Intermediate, Verified 04/16/25 13:57) Vomiting Self Adherent Wrap Adverse Reaction (Intermediate, Uncoded 04/16/25 13:57) Hives to area Medication List - Last Reconciled 04/16/25 by Juancho Fitzgerald [employer]ELOPER- albuterol sulfate 2.5 mg (3 mL) inhalation Q4-6H PRN albuterol sulfate 90 mcg/actuation 2 puffs inhalation Q6H PRN 30 days ascorbate calcium (vitamin C) 500 mg PO DAILY azelaic acid 15% 1 appl topical BID bupropion HCl XL (Wellbutrin XL) 150 mg PO QAM buspirone 10 mg PO BID cholecalciferol (vitamin D3) 10 mcg PO DAILY fluticasone propion-salmeterol 230-21 mcg/actuation (Advair HFA) 2 puffs inhalation BID ipratropium-albuterol 0.5 mg-3 mg(2.5 mg base)/3 mL 3 mL inhalation Q12H PRN 30 days levocetirizine 5 mg PO QPM PRN lorazepam 0.5 mg PO DAILY PRN 30 days multivitamin 1 tab PO DAILY naproxen 500 mg PO BID PRN 7 days pravastatin 20 mg PO BEDTIME 90 days trazodone 50 mg PO BEDTIME PRN vitamin K2 100 mcg PO DAILY Tobacco use date assessed: 04/16/25 Fall risk assessment: 1 Fall in past year Last assessed Fall Risk: 04/16/25 Dental Screening Dental Screen Date: 04/16/25 Did you have a dental visit in the last 12 months?: Yes Did you have a dental problem in the last 6 months where you did not have access to dental care?: No Was dental information given to patient?: Patient has dentist HPI 4m follow up HPI Details Chief Complaint The patient presents for management of dyslipidemia. History of Present Illness The patient is a 74-year-old female presenting with dyslipidemia. She is currently on a statin, which she has recently restarted. The patient reports feeling excellent and doing quite well overall. The patient is engaging in more outdoor activities due to the nicer weather, which may contribute to her improved well-being. Plans are in place to check her laboratory results in the near future to monitor her condition. Social History - Exercise: Engaging in more outdoor act ivities due to nicer weather Health Maintenance - Plan to check laboratory results to darrick caballero dyslipidemia management Review of Systems - General: Reports feeling excellent and doing quite well Physical Exam General: Cooperative, healthy appearing, comfortable, no acute distress and well developed Orientation: Patient oriented x3 Limitations: No limitations Head: Normal to inspection Ears: Hearing grossly normal bilaterally Nose: Normal external nose present Face and sinus: Normal facial exam Eyes: Appearance normal, both eyes and all related structures Neck: Normal visual inspection and Yes full ROM Respiratory: Normal respiratory effort and able to speak in complete sentences. Clear to auscultation bilaterally Cardiovascular: Regular rate and rhythm. Normal S1 and S2 GI: Normal to inspection. Soft to palpation and nontender Skin: No rashes or lesions noted Neuro: Patient oriented x3 Extremities: Normal to inspection Results Plan The patient will continue on her current statin therapy, which she has recently restarted, to manage her dyslipidemia. Laboratory tests will be conducted in the near future to assess her lipid levels and ensure the effectiveness of the treatment. Discussion Notes I discussed with the patient the importance of continuing her statin therapy to manage her dyslipidemia effectively. We also talked about the plan to conduct laboratory tests soon to monitor her lipid levels and adjust treatment if necessary. Patient Instructions - Continue taking your statin medication as prescribed. - Expect to have lab tests soon to check your cholesterol levels. [facility] Medical History Asthma with acute exacerbation Glaucoma Dyslipidemia Osteoporosis Decreased appetite Panic attacks Anxiety Asthma COPD (chronic obstructive pulmonary disease) Eosinophilia Microhematuria Surgical History Hx of eye surgery Hx of cataract extraction History of surgery on right wrist Hx of colonoscopy Family History Mother No known health problems Father No known health problems Social History Household Members: None Housing: House Housing Other:: private upper level of family home Are you a primary healthcare corporate account director to a significant other at home: No Do you presently have visiting nurse or other home services: No Patient Tobacco Use Status: Former Tobacco user Tobacco use type: Cigarette Years Smoked: 10 e-Cigarette/Vaping Use: Never Used Current occupational status: retired Cognitive needs: No Hearing needs: No Vision needs: No Questionnaire Thrive Questionnaire Date Thrive assessed: 12/21/24 I am a: Patient What is your living situation today?: I have a steady place to live Within the past 12 months, did the food you bought not last and you didn't have the money to get more?: Never true Within the past 12 months, did you worry whether your food would run out before you got money to buy more?: Never true Do you have trouble paying for medicines?: No Do you have trouble getting transportation to medical appointments?: No Do you have trouble paying your heating and electricity bill?: No Do you have trouble taking care of your child, family member or friend?: No Do you have trouble with day-to-day activities such as bathing, preparing meals, shopping, managing finances, etc.?: No Are you currently unemployed and looking for a job?: No Are you interested in more education?: Yes Please select the resources that you would like help with: Childcare Currently or been in a relationship where the following occur: No concerns reported THRIVE Score: 0 IN-7 AMB Questionnaire NI-7 Date NI - 7 assessed: 12/21/24 Source: Developed by Drs. Farooq Griffin, Ruth Hi, Matheus Mckinley and colleagues, with an educational jhon from [employer]. Physical exam (Primary Care) Vital Signs: Last Vital Signs Temp 98.9 F 04/16/25 13:56 Pulse 86 04/16/25 13:56 Resp 15 04/16/25 13:56 BP 108/62 04/16/25 13:56 Pulse Ox 93 04/16/25 13:56 Oxygen Delivery Method Room Air 04/16/25 13:56 BMI result Body Mass Index 20.5 Tobacco/Smoking Status: Tobacco use Status Tobacco use date assessed 04/16/25 04/16/25 13:58 Patient Tobacco Use Status Former Tobacco user 04/16/25 13:58 Tobacco use type Cigarette 04/16/25 13:58 e-Cigarette/Vaping Use Never Used 04/16/25 13:58 Thrive Assessment: Date of Thrive Assessment Date Thrive assessed 12/21/24 04/16/25 13:58 Currently or been in a relationship where the following occur: No concerns reported Coding Level of Care Code Est Pt Level 3 (88991) Diagnoses Dyslipidemia E78.5 Vitamin D deficiency E55.9 Assessment & Plan Assessment & Plan (1) Dyslipidemia: Code(s): E78.5 - Hyperlipidemia, unspecified Category: Medical (2) Vitamin D deficiency: Code(s): E55.9 - Vitamin D deficiency, unspecified Category: Medical Plan . Orders: Orders Comprehensive [place]. Panel Fast Today E78.5 - Hyperlipidemia, unspecified Lipid Panel Today E78.5 - Hyperlipidemia, unspecified TSH reflex Free T4 Today E78.5 - Hyperlipidemia, unspecified UA CC w/rflx Micro + Cult Today E78.5 - Hyperlipidemia, unspecified Vitamin D 25-OH Total Today E55.9 - Vitamin D deficiency, unspecified Complete Blood Count Auto Diff Today E78.5 - Hyperlipidemia, unspecified
== END 2025-04-16 14:42 | disposition home or self-care (01) ==
LOC: HO.HMCC 13:53
PROVIDERS: PCP Nurse Practitioner Family; Visit Provider Nurse Practitioner Family
DX: E78.5 Hyperlipidemia, unspecified (principal); E55.9 Vitamin D deficiency, unspecified

== ENCOUNTER → 2025-04-16 13:52 | Outpatient (BNVA) | payer MEDICARE, SELFPAY | PROVIDERS: PCP Nurse Practitioner Family; Visit Provider Nurse Practitioner Family | DX: E78.5 Hyperlipidemia, unspecified (principal); E55.9 Vitamin D deficiency, unspecified | CPT/HCPCS: 99212 ==

== ENCOUNTER 2025-07-05 09:39 | Outpatient (REF) | payer MEDICARE, SELFPAY ==
--- OUTSIDE RECORDS SUMMARY | 2013-10-27 01:00 | XMS_ITS | Encounter Summary ---
Author Organization [facility] Address [address] [address] Phone Care Team Providers Care Technology Methodology Consultant Name Role Phone Unavailable Primary Care Provider Unavailabl e Encounter Details Date Type Department Care Team (Late st Contact Info) Description 10/27/2013 Hospital Encounter [facility],Outside Imaging [address] [place] [address] System, Provider Not In, PhD [address] [address] Social History Tobacco Use Types Packs/Day Years Used Date Smoking Tobacco: Never Assessed Education Answer Date Recorded Are you interested in more education? Not on nacho e 02/19/2023 Are you concerned about learning? Not on file 02/19/2023 No 02/19/2023 No 02/19/2023 Digital Access Answer Date Recorded No 03/22/2023 No 03/22/2023 Reliable internet access at home? Not on file 03/22/2023 Device with a working camera? Not on file Comments Unknown Sex and Gender Information Value Date Recorded Sex Assigned at Not on file Legal Sex Female 10:04 PM EDT Gender Identity Not on file Sexual Orientation Not on file documented as of this encounter Plan of Treatment Not on file documented as of this encounter Procedures Procedure Name Priority Date/Time Associated Diagnosis Comments BI MAMMOGRAM OUTSIDE (NO INTERPRETATION) Routine 10/27/2013 12:00 AM EST documented in this encounter Results * Mammogram Outside (No Interpretation) (10/27/2013 12:00 AM EST) Narrative SYSTEMGENERATED, DOCUMENTATION - 09/13/2017 2:56 PM EST This study is for PACS storage only and not for interpretation. us Provider Not In System PhD IMG OUTSIDE IMAGING W /OUT INTERPRETATION Final Result documented in this encounter Visit Diagnoses Not on filedocumented in this encounter Additional Source Comments The information contained in this document represents components of the legal health record. It is not the complete legal health record.[facility]
--- OUTSIDE RECORDS SUMMARY | 2015-01-24 | XMS_ITS | Encounter Summary ---
Author Organization [facility] Address [address] [facility] [address] [place] [id number] Phone Care Team Providers Care Microwave Supervisor Name Role Phone Unavailable Primary Care Provider Unavailabl e Encounter Details Date Type Department Care Team (Late st Contact Info) Description 01/24/2015 Hospital Encounter [facility],Outside Imaging [address] [place] [address] System, Provider Not In, PhD [address] [address] Social History Tobacco Use Types Packs/Day Years [...] Comments BI MAMMOGRAM OUTSIDE (NO INTERPRETATION) Routine 01/24/2015 12:00 AM EDT documented in this encounter Results * Mammogram Outside (No Interpretation) (01/24/2015 12:00 AM EDT) Narrative SYSTEMGENERATED, DOCUMENTATION - 09/13/2017 2:55 PM EST This study is for PACS storage only and not for interpretation. us Provider Not In System PhD IMG OUTSIDE IMAGING W /OUT INTERPRETATION Final Result documented in this encounter Visit Diagnoses Not on filedocumented in this encounter Additional Source Comments The information contained in this document represents components of the legal health record. It is not the complete legal health record.[facility]
[2025-07-05 10:18] LABS: MANUAL DIFF FLAG NO
[2025-07-05 11:10] LABS: Hematocrit 43.7 % (37.0-47.0); Hemoglobin 14.2 g/dl (12.0-16.0); Imm Gran Abs Auto 0.02 X10*3/uL (0.00-0.03); Imm Gran Pct Auto 0.3 % (0.0-0.4); Lymphocytes Absolute Auto 2.3 X10*3/uL (1.2-4.9); Mean Corpuscular HGB Conc 32.5 g/dl (31.0-35.0); Mean Corpuscular Hemoglobin 30.7 pg (27.0-33.0); Mean Corpuscular Volume 94.6 fL (80.0-98.0); NRBC Abs Auto 0.000 X10*3/uL (0.0-0.012); NRBC Pct Auto 0.0 /100WBC (0.0-0.2); Platelet Count 280 X10*3/uL (160-400); Red Blood Count 4.62 X10*6/uL (4.20-5.50); White Blood Count 6.1 X10*3/uL (4.8-10.8)
--- OUTSIDE RECORDS SUMMARY | 2025-07-05 11:18 | XMS_ITS | Encounter Summary ---
Author Organization [facility] Address [address] [facility] [address] [place] [address] Phone Care Team Providers Care Director Of Food And Nutrition Name Role Phone Addy, Sadie A Unavailable Roland Rhoades MD Unavailable Daly, Sadie A MD Primary Care Provider [phone] Pcp, Unknown Primary Care Provider Unavailabl e Encounter Details Date Type Department Care Team (Late st Contact Info) Description 09/01/2017 Ancillary Orders [facility] [address] [place] [address] [place] [address] Sadie Daly MD [address] [place] [address], [address]nd [place] [address] [email or web address] Abnormal mammogram of both breasts; Abnormality of right breast on screening mammography Social History Tobacco Use Types Packs/Day Years Used Date Smoking Tobacco: Never Assessed Comments Unknown Sex and Gender Information Value Date Recorded Sex Assigned at Not on file Legal Sex Female 10:04 PM EDT Gender Identity Not on file Sexual Orientation Not on file documented as of this encounter Plan of Treatment Not on file documented as of this encounter Results * BI MAMMOGRAM DIAGNOSTIC WITH TOMOSYNTHESIS WITH CAD (BILATERAL) (09/06/2017 2:48 PM EST) Anatomical Region Laterality Modality Breast Left, Breast Right, Breast Bilateral Bila teral Mammography 09/06/2017 2:54 PM EST Impressions 09/06/2017 3:08 PM EST No findings suspicious for malignancy. Subcentimeter lymph node with benign characteristics in the posterior upper outer right breast. Reevaluation recommended in one year by bilateral screening mammography. The results and recommendation were conveyed to the patient by the technologist at the time of the examination. BI-RADS CATEGORY: 2 - Benign finding. POS - CDHMAMA Narrative 09/06/2017 3:08 PM EST HISTORY: Bilateral abnormal screening mammograms. EXAM: Bilateral diagnostic mammogram. COMPARISON: The only previous mammogram available dated 08/27/2017 which apparently is a new baseline exam. FINDINGS: Right: 90 degrees ML and spot compression MLO views obtained with 3-D tomography. There is a persisting well-circumscribed lentiform shaped mass with a fatty central notch in the posterior upper right breast consistent with a lymph node with a fatty hilum. This is apparently located laterally according to 3-D tomography. No other suspicious masses. No evidence of architectural distortion. Left: Spot magnification cc view obtained. There are no suspicious microcalcifications in the retroareolar inner left breast. Appearance on 08/27/2017 appears to be artifactual. No evidence of an underlying mass or architectural distortion. us Sadie A Addy [facility] IMG MG EXAMS Final Result documented in this encounter Visit Diagnoses Diagnosis Abnormal mammogram of both breasts Abnormality of right breast on screening mammography Abnormal mammogram of both breasts documented in this encounter Care Teams Director Of Food And Nutrition Relationship Specialty Start Date End Date Sadie Daly MD [address] [place] [id number] PCP - General Internal Medicine 09/01/17 03/17/21 Pcp, Unknown PCP - General 03/18/21 Sadie Daly MD [address] [place] [address] [email or web address] Historical LMR Provider 08/12/17 Roland Rhoades MD [address] [place] [address] [email or web address] Historical LMR Provider 08/12/17 11/01/21 documented as of this encounter Additional Source Comments The information contained in this document represents components of the legal health record. It is not the complete legal health record.[facility]
--- OUTSIDE RECORDS SUMMARY | 2025-07-05 11:18 | XMS_ITS | Clinical Summary ---
Author Organization [facility] Address [address] [address] Phone Care Team Providers Care Refinery Operator Helper Name Role Phone Sadie Daly MD Unavailable [phone] Pcp, Unknown Primary Care Provider Unavailabl e Allergies Active Allergy Reactions Criticality Noted Date Comments Amoxicillin-Pot Clavulanate Anaphylaxis High 018 Sulfa (Sulfonamide Antibiotics) Unknown 06/2018 Medications PROAIR HFA 90 mcg/actuation inhalerIndicatio ns:Medication refill INHALE TWO PUFFS BY MOUTH EVERY 4 HOURS NEEDED 8.5 g 3 8 Active tiZANidine (ZANAFLEX) 4 MG tabletIndication s:Muscle spasms of both lower extremities TAKE ONE TABLET BY MOUTH EVERY DAY NEEDED 30 tablet 2 8 Active cholecalciferol, vitamin D3, 1,000 unit capsule Take 1 capsule by mouth daily. Active metroNIDAZOLE (METROCREAM) 0.75 % cream 1 application to affected area Externally Twice a day 7 Active predniSONE (DELTASONE) 20 MG tablet Take 2 tablets by mouth daily. 7 Active escitalopram oxalate (LEXAPRO) 10 MG tabletIndication s:Prescription refill TAKE ONE TABLET BY MOUTH EVERY DAY 30 tablet 6 8 Active budesonide-formo terol (SYMBICORT) 160-4.5 mcg/actuation inhaler Inhale 2 puffs into the lungs 2 (two) times a day. 1 Inhaler 6 8 Active ADVAIR DISKUS 500-50 mcg/dose DISKUSIndication s:Medication refill INHALE ONE PUFF BY MOUTH TWICE A DAY 180 each 3 8 Active Social History Tobacco Use Types Packs/Day Years [...] on file Sexual Orientation Not on file Last Filed Vital Signs Vital Sign Reading Time Taken Comments Blood Pressure 118/80 05/18/2017 2:37 AM EDT Pulse 68 05/18/2017 2:37 AM EDT Temperature - - Respiratory Rate - - Oxygen Saturation - - Inhaled Oxygen Concentration - - Weight 58.5 kg (129 lb) 05/18/2017 2:37 AM EDT Height 166.4 cm (5' 5.5 ) 05/18/2017 2:37 AM EDT Body Mass Index 21.14 05/18/2017 2:37 AM EDT Plan of Treatment Health Maintenance Due Date Last Done Comments DEPRESSION SCREENING 1961 SMOKING Hx and SMOKELESS TOBACCO SCREENING 1962 HEPATITIS C SCREENING 1967 COLOGUARD 1994 COLONOSCOPY 1994 COLORECTAL CANCER SCREENING 1994 FIT TEST 1994 FOBT 1994 SIGMOIDOSCOPY 1994 VIRTUAL COLONOSCOPY 1994 ZOSTER VACCINES (1 of 2) 1999 OSTEOPOROSIS SCREENING INITI AL (ONE-TIME) 2014 Adult Td,Tdap Booster 02/22/2019 02/22/2009 LIPID PANEL 12/10/2021 12/10/2016 RSV VACCINE (1 - 1-dose 75+ series) 2024 INFLUENZA VACCINE (#1) 2025 10/28/2015 COVID-19 VACCINE (2 - 2024-2 6 season) 2025 01/29/2021 PNEUMOCOCCAL VACCINES (50+ years) Completed 10/28/2015, 01/25/2015 HEPATITIS A VACCINES Aged Out No long er eligible based on patient's age to complete this topic HIB VACCINES Aged Out No longer eligi ble based on patient's age to complete this topic MENINGOCOCCAL VACCINES (ACWY) Aged Out No longer eligible based on patient's age to complete this topic MENINGOCOCCAL VACCINES (B) Aged Out N o longer eligible based on patient's age to complete this topic Medical Devices Not on file Procedures Procedure Name Priority Date/Time Associated Diagnosis Comments OUTSIDE LDL Routine 12/10/2016 from Last 3 Months or Most Recently Relevant to Health Maintenance Results * Outside LDL (12/10/2016) LDL - External 167 50 - 250 mg/ml [facility] Provider LAB BLOOD ORDERABLES Anita l Result from Last 3 Months or Most Recently Relevant to Health Maintenance Insurance [facility] MEDICARE PPO BLUE REPLACEMENT [facility] MEDICARE PPO BLUE REPLACEMENT [place] MEDIC[place] BLUE REPLACEMENT Care Teams Refinery Operator Helper Relationship Specialty Start Date End Date Pcp, Unknown PCP - General 03/18/21 Sadie Daly MD [address] [place] [address], [address] [place] [address] [email or web address] Historical LMR Provider 08/12/17 Additional Source Comments The information contained in this document represents components of the legal health record. It is not the complete legal health record.[facility]
--- OUTSIDE RECORDS SUMMARY | 2025-07-05 11:18 | XMS_ITS | Encounter Summary ---
Author Organization [facility] Address [address] [place] [phone] Phone Care Team Providers Care Director Electrical Engineering Name Role Phone Daly, Sdaie A MD Unavailable [phone] Roland Rhoades MD Unavailable [phone] Daly, Sadie A MD Primary Care Provider Pcp, Unknown Primary Care Provider Unavailabl e Encounter Details Date Type Department Care Team (Late st Contact Info) Description 09/13/2017 Ancillary Orders [facility],Outside Imaging [address] [place] [address] System, Provider Not In, [place] [address] Social History Tobacco Use Types Packs/Day Years Used Date Smoking Tobacco: Never Assessed Comments Unknown Sex and Gender Information Value Date Recorded Sex Assigned at Not on file Legal Sex Female 10:04 PM EDT Gender Identity Not on file Sexual Orientation Not on file documented as of this encounter Plan of Treatment Not on file documented as of this encounter Results * Mammogram Outside (No Interpretation) (01/24/2015 12:00 AM EDT) Narrative SYSTEMGENERATED, DOCUMENTATION - 09/13/2017 2:55 PM EST This study is for PACS storage only and not for interpretation. us Provider Not In System PhD IMG OUTSIDE IMAGING W /OUT INTERPRETATION Final Result * Mammogram Outside (No Interpretation) (10/27/2013 12:00 AM EST) Narrative SYSTEMGENERATED, DOCUMENTATION - 09/13/2017 2:56 PM EST This study is for PACS storage only and not for interpretation. us Provider Not In System PhD IMG OUTSIDE IMAGING W /OUT INTERPRETATION Final Result documented in this encounter Visit Diagnoses Not on filedocumented in this encounter Care Teams Director Electrical Engineering Relationship Specialty Start Date End Date Sadie Daly MD [address] [place] [phone] [email or web address] PCP - General Internal Medicine 09/01/17 03/17/21 Pcp, Unknown PCP - General 03/18/21 Sadie Daly MD [address] [place] [phone] [email or web address] Historical LMR Provider 08/12/17 Roland Rhoades MD [address] [place] [address] [email or web address] Historical LMR Provider 08/12/17 11/01/21 documented as of this encounter Additional Source Comments The information contained in this document represents components of the legal health record. It is not the complete legal health record.[facility]
--- OUTSIDE RECORDS SUMMARY | 2025-07-05 11:18 | XMS_ITS | Encounter Summary ---
Author Organization [facility] Address [address] [facility] [address] [place] [address] Phone Care Team Providers Care Collar Cutter Name Role Phone Addy, Sadie A Unavailable [phone] Roland Rhoades MD Unavailable Daly, Sadie A MD Primary Care Provider Addy, Sadie A Primary Care Provider Pcp, Unknown Primary Care Provider Unavailabl e Encounter Details Date Type Department Care Team (Late st Contact Info) Description 08/26/2017 Ancillary Orders [facility] [address] [place] [address] [place] [address] Sadie Daly MD [address] [place] [address], 2[address] [place] [address] [email or web address] Breast screening Social History Tobacco Use Types Packs/Day Years Used Date Smoking Tobacco: Never Assessed Comments Unknown Sex and Gender Information Value Date Recorded Sex Assigned at Not on file Legal Sex Female 10:04 PM EDT Gender Identity Not on file Sexual Orientation Not on file documented as of this encounter Plan of Treatment Not on file documented as of this encounter Results * (ABNORMAL) BI MAMMOGRAM SCREENING WITH TOMOSYNTHESIS WITH CAD (BILATERAL) (08/27/2017 2:02 PM EDT) Anatomical Region Laterality Modality Breast Left, Breast Right, Breast Bilateral Bila teral Mammography 08/30/2017 7:13 AM EST Addenda Addendum by Olga Polanco MD on 09/14/2017 10:16 AM EST Previous mammograms have become available dated 01/24/2015 and 10/27/2013. There has been no interval change. The small lymph node in the upper posterior right breast is unchanged. N/C Impressions 08/30/2017 7:22 AM EST Limited without prior mammograms. Recommend recalling the patient for possible left breast calcifications and a right breast mass. Radiology department will attempt to recall the patient. BI-RADS CATEGORY: 0 - Incomplete. Need additional imaging evaluation. DENSITY: There are scattered fibroglandular densities. Recall views: Left cc magnification, right ML view, right MLO compression view and right breast ultrasound if necessary. POS - [email or web address] Narrative 08/30/2017 7:22 AM EST 66-year-old female with no current breast symptoms. No prior mammograms available for comparison. Interpretation made in conjunction with computer-aided detection and tomosynthesis. There are scattered areas of fibroglandular density. Bilateral macrocalcifications and vascular calcifications. Questionable microcalcifications in the anterior medial left breast on the cc view only. There is a subcentimeter possible partially obscured mass in the upper right breast on the MLO view only. There are no suspicious masses, areas of architectural distortion, or suspicious clusters of microcalcifications. Procedure Note Olga Polanco MD - 08/30/2017 66-year-old female with no current breast symptoms. No prior mammogramsavailable for comparison. Interpretation made in conjunction withcomputer-aided detection and tomosynthesis. There are scattered areas of fibroglandular density. Bilateralmacrocalcifications and vascular calcifications. Questionablemicrocalcifications in the anterior medial left breast on the cc viewonly. There is a subcentimeter possible partially obscured mass in theupper right breast on the MLO view only. There are no suspicious masses, areas of architectural distortion, orsuspicious clusters of microcalcifications. IMPRESSION: Limited without prior mammograms. Recommend recalling the patient forpossible left breast calcifications and a right breast mass. Radiologydepartment will attempt to recall the patient. BI-RADS CATEGORY: 0 - Incomplete. Need additional imaging evaluation. DENSITY: There are scattered fibroglandular densities. Recall views: Left cc magnification, right ML view, right MLO compressionview and right breast ultrasound if necessary. POS - [email or web address] Sadie Daly MD IMG MG EXAMS Edited Result - Final documented in this encounter Visit Diagnoses Diagnosis Breast screening Breast screening, unspecified Breast screening Breast screening, unspecified documented in this encounter Care Teams Collar Cutter Relationship Specialty Start Date End Date Sadie Daly MD [address] [place] [id number] [email or web address] PCP - General Internal Medicine 08/26/17 08/31/17 Sadie Daly MD [address] [place] [id number] [email or web address] PCP - General Internal Medicine 09/01/17 03/17/21 Pcp, Unknown PCP - General 03/18/21 Sadie Daly MD [address] [place] [phone] [email or web address] Historical LMR Provider 08/12/17 Roland Rhoades MD [address] [place] [address] [email or web address] Historical LMR Provider 08/12/17 11/01/21 documented as of this encounter Additional Source Comments The information contained in this document represents components of the legal health record. It is not the complete legal health record.[facility]
[2025-07-05 11:50] LABS: Alanine Aminotransferase 20 U/L (0-31); Albumin Level 4.5 g/dL (3.5-5.0); Alkaline Phosphatase 67 U/L (39-117); Anion Gap 12 (12-20); Aspartate Amino Transferase 25 U/L (5-31); Blood Urea Nitrogen 19 mg/dL (9-16); Calcium 9.8 mg/dL (8.4-10.2); Carbon Dioxide 30 mmol/L (22-29); Chloride 106 mmol/L (96-108); Cholesterol 221 mg/dL (<200); Estimated Glomerular Filt Rate > 60; HDL Cholesterol 73 mg/dL (>40); Potassium 3.9 mmol/L (3.3-5.1); Sodium 144 mmol/L (135-145); Total Protein 6.9 g/dL (6.5-8.0); Triglycerides 91 mg/dL (<150)
[2025-07-05 12:57] LABS: Appearance Urine Clear; Glucose Urine UA Negative (Negative); PH 5.5 (5.0-9.0); Specific Gravity - Urine 1.025 (1.005-1.025); UMIC TRIGGER UACC YES
== END 2025-07-05 09:40 | disposition home or self-care (01) ==
LOC: HO.LAB 09:39
PROVIDERS: PCP Nurse Practitioner Family; Visit Provider Nurse Practitioner Family
DX: Z00.00 Encounter for general adult medical examination without abnormal findings (principal); E55.9 Vitamin D deficiency, unspecified; E78.5 Hyperlipidemia, unspecified; J45.909 Unspecified asthma, uncomplicated; J44.9 Chronic obstructive pulmonary disease, unspecified; Z79.52 Long term (current) use of systemic steroids; Z79.899 Other long term (current) drug therapy; Z87.891 Personal history of nicotine dependence
CPT/HCPCS: 36415; 80053; 80061; 81001; 82306; 84443; 85025; 99212

== ENCOUNTER 2025-07-05 09:42 | Outpatient (AMB) | payer MEDICARE, SELFPAY ==
[2025-07-05 09:44] VITALS: BP 100/60; PULSE 70; O2SAT 97; BMI 20.5
--- NOTE | 2025-07-05 09:44 | MHC.OFFVIS ---
Vital Signs 07/05/25 09:44 Height 5 ft 3 in Weight 116 lb BMI 20.5 BP 100/60 Blood Pressure Location Rt brachial Position Sitting Pulse 70 Pulse Source Pulse Oximeter Pulse Oximetry (%) 97 Oxygen Delivery Method Room Air Intake Visit Reasons: productive cough Intake Note: Patient is here for a routine follow up. No complaints Allergies amoxicillin (Augmentin) Allergy (Severe, Verified 07/05/25 10:08) Anaphylaxis clavulanic acid (Augmentin) Allergy (Severe, Verified 07/05/25 10:08) Anaphylaxis doxycycline Adverse Reaction (Intermediate, Verified 07/05/25 10:08) Vomiting Self Adherent Wrap Adverse Reaction (Intermediate, Uncoded 07/05/25 10:08) Hives to area Medication List - Last Reconciled 07/05/25 by Virgil Vital MD albuterol sulfate 2.5 mg (3 mL) inhalation Q4-6H PRN albuterol sulfate 90 mcg/actuation 2 puffs inhalation Q6H PRN 30 days ascorbate calcium (vitamin C) 500 mg PO DAILY azelaic acid 15% 1 appl topical BID bupropion HCl XL (Wellbutrin XL) 150 mg PO QAM buspirone 10 mg PO BID cholecalciferol (vitamin D3) 10 mcg PO DAILY fluticasone propion-salmeterol 230-21 mcg/actuation (Advair HFA) 2 puffs inhalation BID ipratropium-albuterol 0.5 mg-3 mg(2.5 mg base)/3 mL 3 mL inhalation Q12H PRN 30 days levocetirizine 5 mg PO QPM PRN lorazepam 0.5 mg PO DAILY PRN 30 days multivitamin 1 tab PO DAILY naproxen 500 mg PO BID PRN 7 days pravastatin 20 mg PO BEDTIME 90 days trazodone 50 mg PO BEDTIME PRN vitamin K2 100 mcg PO DAILY Do you need a note to return to daycare/school/sports/work: No HPI HPI productive cough: Details: THIS 74 YEARS OLD VERY PLEASANT FEMALE COMES FOR FOLLOW-UP AFTER 6 MONTHS FOR HER BRONCHIAL ASTHMA/COPD. BREATHING STATUS HAS REMAINED VERY STABLE AND SHE IS HAPPY TO TELL ME THAT SHE HAS CUT DOWN THE USE OF MEDICATIONS. DURING THE LAST 6 MONTHS HAS HAD NO ACUTE EXACERBATION, SHE KNOWS HOW TO MANAGE IF SHE HAS INCREASED SYMPTOMS. NORMALLY SHE IS USING ADVAIR 2 PUFFS ONLY IN THE MORNING AND USES THE 2ND 1 IN THE EVENING ONLY ON THE DAYS WHEN SHE FEELS MORE SHORT OF BREATH. SOMETIMES SHE HAS TO USE THE IPRATROPIUM-ALBUTEROL SOLUTION IN THE NEBULIZER BUT NO MORE THAN ONCE A DAY. ANXIETY LEVEL IS CONTROLLED WITH USE OF BUPROPION XL 150 MG IN AM AND LORAZEPAM 0.5 MG P.O. ONCE A DAY IF NEEDED. [facility] Medical History Asthma with acute exacerbation Glaucoma Dyslipidemia Osteoporosis Decreased appetite Panic attacks Anxiety Asthma COPD (chronic obstructive pulmonary disease) Eosinophilia Microhematuria Surgical History Hx of eye surgery Hx of cataract extraction History of surgery on right wrist Hx of colonoscopy Family History Mother No known health problems Father No known health problems Social History Household Members: None Housing: House Housing Other:: private upper level of family home Are you a primary healthcare management consultant to a significant other at home: No Do you presently have visiting nurse or other home services: No Patient Tobacco Use Status: Former Tobacco user Tobacco use type: Cigarette Years Smoked: 10 e-Cigarette/Vaping Use: Never Used Current occupational status: retired Cognitive needs: No Hearing needs: No Vision needs: No Review of Systems Const All systems reviewed & are unremarkable except as noted in HPI and below Eyes Reports no additional complaints ENT Reports nasal congestion (Mild intermittent) Card Denies irregular heart rhythm and Denies leg edema Resp Reports as per HPI GI Reports no additional complaints Reports no additional complaints Musc Reports no additional complaints Skin/Breast Reports system reviewed and no additional complaints, except as documented Neuro Reports no additional complaints Psych Reports no additional complaints Endo Reports no additional complaints Ayaan/Lymph Reports no additional complaints Physical Exam Vital Signs: Last Vital Signs Pulse 70 07/05/25 09:44 BP 100/60 07/05/25 09:44 Pulse Ox 97 07/05/25 09:44 Oxygen Delivery Method Room Air 07/05/25 09:44 BMI result Body Mass Index 20.5 Const General: healthy appearing, comfortable, no acute distress, alert and awake Orientation/consciousness: patient oriented x3 HEENT Head: Yes normal to inspection General nose exam: No nasal polyps present, No nasal discharge present and Other nasal findings present (Mild nasal congestion) Face and sinus: Yes sinuses nontender Mouth: oropharynx normal Throat: Yes posterior oropharynx normal Eyes General: appearance normal, both eyes and all related structures Neck Neck: Yes normal visual inspection, Yes no lymphadenopathy, Yes trachea midline and Yes no JVD Thyroid: Thyroid normal Chest Chest palpation & inspection: normal inspection of the chest, normal palpation of entire chest wall and no tenderness Resp Other: Percussion note hyper resonant . Breath sounds are slightly distant with prolonged expiratory phase No wheezes or crepitations are heard. Cardio Palpation: normal PMI Rate: regular rate Rhythm: regular rhythm Heart sounds: no gallops and no murmurs Peripheral pulses: Peripheral pulses 2+ throughout GI Palpation (GI): Soft to palpation, nontender, No hepatosplenomegaly present and no masses Auscultation: normal bowel sounds Back/Spine/Pelvis Thoracic/Lumbar Spine: thoracic and lumbar spine normal to inspection Skin General skin exam: no rashes or lesions noted Neuro General: patient oriented x3 and no focal motor deficits Cranial nerves: Yes CN's II-XII intact bilaterally Extrem General: Yes normal to inspection, Yes no clubbing, cyanosis or edema and Yes no calf tenderness Psych Speech and movement: Normal speech and movement present Assessment & Plan Assessment & Plan (1) Asthma: Comment: Chronic allergic bronchial asthma. Mostly presenting in the form of cough. Relatively controlled at this time. She does have mild eosinophilia. Code(s): J45.909 - Unspecified asthma, uncomplicated Category: Medical Plan: ADVAIR HFA 230-21 2 PUFFS IN THE MORNING AND 2 PUFFS IN THE EVENING IF SYMPTOMS FLARE UP. IPRATROPIUM-ALBUTEROL SOLUTION IN THE NEBULIZER Q 6 HOURS P.R.N.( USUALLY TAKING ONCE OR TWICE A DAY ) ALBUTEROL HFA 2 PUFFS Q 4-6 HOURS P.R.N. WHEN OUTDOORS . KEEP PREDNISONE 20 MG TABLETS ON HAND AND USE 1 B.I.D. FOR 5 DAYS IN CASE OF ACUTE EXACERBATION. (2) COPD (chronic obstructive pulmonary disease): Comment: Patient has past history of smoking. Chest x-ray showed hyperinflated lung/pulmonary emphysema. PFT, C/W obstructive airway disorder, severe. ( ASTHMA/COPD ) SYNDROME. Seems to be relatively controlled at this time with the current regimen. As noted under asthma Code(s): J44.9 - Chronic obstructive pulmonary disease, unspecified Category: Medical Plan: Treatment as noted under asthma Coding Level of Care Code Est Pt Level 3 (21158) Diagnoses Asthma J45.909 COPD (chronic obstructive pulmonary disease) J44.9
== END 2025-07-05 10:07 | disposition home or self-care (01) ==
LOC: HO.HPS 09:43
PROVIDERS: PCP Nurse Practitioner Family; Visit Provider Internal Medicine
DX: J45.909 Unspecified asthma, uncomplicated (principal); J44.9 Chronic obstructive pulmonary disease, unspecified
CPT/HCPCS: 99213